=== PATIENT | female | born 1930 | race Caucasian/White ===

== ENCOUNTER 2017-08-28 21:18 | Emergency (ER) | payer MEDICARE ==
[2017-08-28 21:31] VITALS: TEMP 95.3
--- NOTE | 2017-08-28 22:20 | ED ---
General Adult HPI - General Chief complaint: Back Pain/Injury Stated complaint: back pain Time Seen by Provider: 08/28/17 21:39 Source: patient, family, RN notes reviewed Mode of arrival: wheelchair Limitations: no limitations - History of Present Illness Initial comments: 86-year-old female presents emergency department with chief complaint of back pain. Patient has had this back pain for about 2 weeks now. She states that she is originally from [place] and recently moved here yesterday. They state that they went to the doctor in [place] and they were concerned for possible kidney stone however they didn't saw a urologist who stated that there was no kidney stones or ureteral calculus and that was not the cause of her pain. She continues to have this discomfort and it seems to getting worse so they were concerned. She states that there is been no nausea vomiting she denies any chest pain. She denies any changes in urination. She states that she is not having any shortness of breath.Patient denies any recent fever, chills, shortness of breath, chest pain, abdominal pain, nausea vomiting, numbness or tingling, dysuria or hematuria, constipation or diarrhea, headaches or visual changes, or any other current symptoms. - Related Data Home Medications Medication Instructions Recorded Confirmed Acetaminophen [Tylenol Extra 500 mg PO BID PRN 08/28/17 08/28/17 Strength] Celecoxib [CeleBREX] 200 mg PO DAILY 08/28/17 08/28/17 Metoprolol Tartrate [Lopressor] 50 mg PO DAILY 08/28/17 08/28/17 PARoxetine [Paxil] 10 mg PO DAILY 08/28/17 08/28/17 Simvastatin [Zocor] 40 mg PO HS 08/28/17 08/28/17 Verapamil HCl [Verapamil ER] 120 mg PO BID 08/28/17 08/28/17 Warfarin [Coumadin] 2.5 mg PO DAILY 08/28/17 08/28/17 Previous Rx's Medication Instructions Recorded traMADol HCl [Ultram] 50 mg PO Q6H PRN #20 tab 08/29/17 Allergies Allergy/AdvReac Type Severity Reaction Status Date / Time No Known Allergies Allergy Verified 08/28/17 22:22 Review of Systems ROS Statement: Those systems with pertinent positive or pertinent negative responses have been documented in the HPI. ROS Other: All systems not noted in ROS Statement are negative. Past Medical History Past Medical History: Hyperlipidemia Additional Past Medical History / Comment(s): heart murmur History of Any Multi-Drug Resistant Organisms: None Reported Past Surgical History: Pacemaker Past Psychological History: No Psychological Hx Reported Smoking Status: Never smoker Past Alcohol Use History: Occasional Past Drug Use History: None Reported General Exam - General Exam Comments Initial Comments: General: The patient is awake and alert, in no distress, and does not appear acutely ill. Eye: Pupils are equal, round and reactive to light, extra-ocular movements are intact; there is normal conjunctiva bilaterally. No signs of icterus. Ears, nose, mouth and throat: There are moist mucous membranes and no oral lesions. Neck: The neck is supple, there is no tenderness. Cardiovascular: There is a regular rate and rhythm. No murmur, rub or gallop is appreciated. Respiratory: Lungs are clear to auscultation, respirations are non-labored, breath sounds are equal. No wheezes, stridor, rales, or rhonchi. Gastrointestinal: Soft, non-distended, non-tender abdomen without masses or organomegaly noted. There is no rebound or guarding present. No CVA tenderness. Bowel sounds are unremarkable. Back: There is no tenderness to palpation in the midline. There is no obvious deformity. No rashes noted. Musculoskeletal: Normal ROM, no tenderness, There is no pedal edema. There is no calf tenderness or swelling. Sensation intact. Pulses equal bilaterally 2+. Neurological: CN II-XII intact, There are no obvious motor or sensory deficits. Coordination appears grossly intact. Speech is normal. Skin: Skin is warm and dry and no rashes or lesions are noted. Psychiatric: Cooperative, appropriate mood & affect, normal judgment. Limitations: no limitations Course Vital Signs 08/28/17 08/28/17 08/29/17 21:24 23:46 00:05 Temperature 95.3 F L Pulse Rate 112 H 108 H 108 H Respiratory 18 18 20 Rate Blood Pressure 148/83 149/74 149/74 O2 Sat by Pulse 97 98 96 Oximetry EKG Findings - EKG Comments: EKG Findings:: Demand pacemaker, atrial fibrillation with RVR ventricular rate 106, QRS 104 Medical Decision Making - Medical Decision Making 86-year-old female presents for back pain she's had this for over 2 weeks now. They have been to a CAT scan and workup for possible stone that was negative. They state that she continues to have the pain. At this time patient's lab work and imaging has been reviewed. This time we did discuss there is a T10 compression fracture of unknown age. We discussed this could of flared up due to all the packing and moving. We also discussed the elevated INR and discuss holding the Coumadin and having her follow-up for repeat PT/INR checked. We did discuss all of the family questions and they stated they understood. We will start her on Ultram for home. At this time the patient will be discharged. - Lab Data Result diagrams: 08/28/17 22:11 08/28/17 22:11 Lab Results 08/28/17 08/28/17 08/28/17 Range/Units 22:11 22:11 22:11 WBC 6.7 (3.8-10.6) k/uL RBC 4.02 (3.80-5.40) m/uL Hgb 12.2 (11.4-16.0) gm/dL Hct 37.0 (34.0-46.0) % MCV 92.0 (80.0-100.0) fL MCH 30.4 (25.0-35.0) pg MCHC 33.0 (31.0-37.0) g/dL RDW 13.3 (11.5-15.5) % Plt Count 197 (150-450) k/uL Neutrophils % 66 % Lymphocytes % 19 % Monocytes % 9 % Eosinophils % 3 % Basophils % 1 % Neutrophils # 4.4 (1.3-7.7) k/uL Lymphocytes # 1.2 (1.0-4.8) k/uL Monocytes # 0.6 (0-1.0) k/uL Eosinophils # 0.2 (0-0.7) k/uL Basophils # 0.0 (0-0.2) k/uL PT (9.0-12.0) sec INR (<1.2) APTT (22.0-30.0) sec D-Dimer (<0.60) mg/L FEU Sodium 132 L (137-145) mmol/L Potassium 5.1 (3.5-5.1) mmol/L Chloride 95 L (98-107) mmol/L Carbon Dioxide 26 (22-30) mmol/L Anion Gap 11 mmol/L BUN 22 H (7-17) mg/dL Creatinine 1.00 (0.52-1.04) mg/dL Est GFR (MDRD) Af Amer >60 (>60 ml/min/1.73 sqM) Est GFR (MDRD) Non-Af 53 (>60 ml/min/1.73 sqM) Glucose 93 (74-99) mg/dL Calcium 9.6 (8.4-10.2) mg/dL Magnesium 1.7 (1.6-2.3) mg/dL Total Bilirubin 0.6 (0.2-1.3) mg/dL AST 39 H (14-36) U/L ALT 42 (9-52) U/L Alkaline Phosphatase 117 (38-126) U/L Total Creatine Kinase 87 (30-135) U/L CK-MB (CK-2) 1.7 (0.0-2.4) ng/mL CK-MB (CK-2) Rel Index 2.0 Troponin I <0.012 (0.000-0.034) ng/mL Total Protein 6.6 (6.3-8.2) g/dL Albumin 4.0 (3.5-5.0) g/dL Amylase 56 (30-110) U/L Lipase 251 (23-300) U/L Urine Color Urine Appearance (Clear) Urine pH (5.0-8.0) Ur Specific [place] (1.001-1.035) Urine Protein (Negative) Urine Glucose (UA) (Negative) Urine Ketones (Negative) Urine Blood (Negative) Urine Nitrite (Negative) Urine Bilirubin (Negative) Urine Urobilinogen (<2.0) mg/dL Ur Leukocyte Esterase (Negative) Urine RBC (0-5) /hpf Urine WBC (0-5) /hpf Ur Squamous Epith Cells (0-4) /hpf Hyaline Casts (0-2) /lpf 08/28/17 08/28/17 Range/Units 22:11 23:00 WBC (3.8-10.6) k/uL RBC (3.80-5.40) m/uL Hgb (11.4-16.0) gm/dL Hct (34.0-46.0) % MCV (80.0-100.0) fL MCH (25.0-35.0) pg MCHC (31.0-37.0) g/dL RDW (11.5-15.5) % Plt Count (150-450) k/uL Neutrophils % % Lymphocytes % % Monocytes % % Eosinophils % % Basophils % % Neutrophils # (1.3-7.7) k/uL Lymphocytes # (1.0-4.8) k/uL Monocytes # (0-1.0) k/uL Eosinophils # (0-0.7) k/uL Basophils # (0-0.2) k/uL PT 68.5 H (9.0-12.0) sec INR 6.7 H* (<1.2) APTT 43.3 H (22.0-30.0) sec D-Dimer 0.21 (<0.60) mg/L FEU Sodium (137-145) mmol/L Potassium (3.5-5.1) mmol/L Chloride (98-107) mmol/L Carbon Dioxide (22-30) mmol/L Anion Gap mmol/L BUN (7-17) mg/dL Creatinine (0.52-1.04) mg/dL Est GFR (MDRD) Af Amer (>60 ml/min/1.73 sqM) Est GFR (MDRD) Non-Af (>60 ml/min/1.73 sqM) Glucose (74-99) mg/dL Calcium (8.4-10.2) mg/dL Magnesium (1.6-2.3) mg/dL Total Bilirubin (0.2-1.3) mg/dL AST (14-36) U/L ALT (9-52) U/L Alkaline Phosphatase (38-126) U/L Total Creatine Kinase (30-135) U/L CK-MB (CK-2) (0.0-2.4) ng/mL CK-MB (CK-2) Rel Index Troponin I (0.000-0.034) ng/mL Total Protein (6.3-8.2) g/dL Albumin (3.5-5.0) g/dL Amylase (30-110) U/L Lipase (23-300) U/L Urine Color Light Yellow Urine Appearance Clear (Clear) Urine pH 6.0 (5.0-8.0) Ur Specific [place] 1.005 (1.001-1.035) Urine Protein Negative (Negative) Urine Glucose (UA) Negative (Negative) Urine Ketones Negative (Negative) Urine Blood Negative (Negative) Urine Nitrite Negative (Negative) Urine Bilirubin Negative (Negative) Urine Urobilinogen <2.0 (<2.0) mg/dL Ur Leukocyte Esterase Trace H (Negative) Urine RBC 1 (0-5) /hpf Urine WBC 4 (0-5) /hpf Ur Squamous Epith Cells <1 (0-4) /hpf Hyaline Casts 1 (0-2) /lpf - Radiology Data Radiology results: report reviewed, image reviewed Disposition Clinical Impression: Atrial fibrillation, Elevated INR, Wedge compression fracture of T10 vertebra, Mid back pain Disposition: HOME SELF-CARE Condition: Stable Instructions: Acute Low Back Pain (ED), Elevated INR (ED) Additional Instructions: Please use medication as discussed. Please follow up with family doctor if symptoms have not improved over the next two days. Please return to the emergency room if your symptoms increase or worsen or for any other concerns. Please hold her Coumadin for the next 2 days and have your INR be evaluated. Prescriptions: traMADol HCl [Ultram] 50 mg PO Q6H PRN #20 tab PRN Reason: Pain Referrals: Haroon Morgan MD [Primary Care Provider] - 1-2 days Time of Disposition: 00:16
[2017-08-28 22:26] LABS: Basophils % (A) 1 %; CH 30.8; CHCM 33.7; Eosinophils # (A) 0.2 k/uL (0-0.7); Eosinophils % (A) 3 %; HDW 2.62; HGB 12.2 gm/dL (11.4-16.0); Luc # (Auto) 0.22; Luc % (Auto) 3; Lymphocytes # (A) 1.2 k/uL (1.0-4.8); Lymphocytes % (A) 19 %; MCH 30.4 pg (25.0-35.0); Mean Platelet Volume 7.7; Monocytes # (A) 0.6 k/uL (0-1.0); Monocytes % (A) 9 %; Neutrophils # (A) 4.4 k/uL (1.3-7.7); Neutrophils % (A) 66 %; RBC 4.02 m/uL (3.80-5.40); RDW 13.3 % (11.5-15.5); WBC 6.7 k/uL (3.8-10.6); WBC (Perox) 6.53
[2017-08-28 22:37] LABS: ALT 42 U/L (9-52); AST 39 U/L (14-36); Alkaline Phosphatase 117 U/L (38-126); Amylase 56 U/L (30-110); Anion Gap 11 mmol/L; Blood Urea Nitrogen 22 mg/dL (7-17); Calcium 9.6 mg/dL (8.4-10.2); Carbon Dioxide 26 mmol/L (22-30); Chloride 95 mmol/L (98-107); Glucose 93 mg/dL (74-99); Magnesium 1.7 mg/dL (1.6-2.3); Non-African American GFR(MDRD) 53 (>60 ml/min/1.73 sqM); Potassium 5.1 mmol/L (3.5-5.1); Sodium 132 mmol/L (137-145); Total Bilirubin 0.6 mg/dL (0.2-1.3); Total Protein 6.6 g/dL (6.3-8.2)
[2017-08-28 22:41] LABS: Partial Thromboplastin Time 43.3 sec (22.0-30.0)
[2017-08-28 22:45] LABS: Prothrombin Time 68.5 sec (9.0-12.0)
[2017-08-28 22:46] LABS: Creatine Kinase 87 U/L (30-135)
[2017-08-28 22:51] LABS: INR 6.7 (<1.2)
[2017-08-28] MEDS ORDERED: RX INFO: IV CONTRAST WAS GIVEN 1 EACH MISC MISCELLANE PRN (22:52)
[2017-08-28] MEDS ORDERED: SODIUM CHLORIDE 0.9% 500 ML IV STA (22:52)
[2017-08-28 23:00] LABS: Creatine Kinase MB 1.7 ng/mL (0.0-2.4); Troponin I <0.012 ng/mL (0.000-0.034)
[2017-08-28 23:18] LABS: Appearance,Urine Clear (Clear); Bilirubin,Urine Negative (Negative); Glucose,Urine (UA) Negative (Negative); Ketones,Urine Negative (Negative); Leukocyte Esterase,Urine Trace (Negative); Nitrite,Urine Negative (Negative); Particle Count 408; Protein,Urine Negative (Negative); RBC,Urine 1 /hpf (0-5); Specific Gravity,Urine 1.005 (1.001-1.035); Squamous Epithelial Cell,Urine <1 /hpf (0-4); UA Billing (MACRO vs. MICRO) MICRO; Urobilinogen,Urine <2.0 mg/dL (<2.0); WBC,Urine 4 /hpf (0-5)
--- NOTE | 2017-08-28 23:30 | XR ---
EXAMINATION TYPE: XR chest 2V DATE OF EXAM: 08/28/2017 COMPARISON: NONE HISTORY: Chest pain TECHNIQUE: Frontal and lateral views of the chest are obtained. FINDINGS: Heart is enlarged. There is no heart failure. There is some coarsening of interstitial mar kings. There is slight blunting of right costophrenic angle. Thoracic aorta is atheromatous. There is left axillary pacemaker with the lead tip in the right ventricle. There is osteopenia with 30% compr ession deformity of T10. There is 20% wedging of T9. IMPRESSION: Mild cardiomegaly. Small right pleural effusion. No heart failure seen. No pulmonary con solidation.
--- NOTE | 2017-08-28 23:37 | CT ---
EXAMINATION TYPE: CT angio thoracic/abd aorta DATE OF EXAM: 08/28/2017 COMPARISON: NONE HISTORY: NO prior, mid thoracic back pain that radiates into abdomen, history of pacemaker, and breas t CA with left lumpectomy [address] DLP: 540.80 mGycm. Automated Exposure Control for Dose Reduction was Utilized. CONTRAST: CT scan of the thorax, abdomen and pelvis is performed with IV Contrast, patient injected with 80 mL of Visipaque 320. FINDINGS: Thoracic aorta is atheromatous. I see no filling defects in the pulmonary arteries. Ascending aorta m easures 3.7 cm. There is no sign of aortic dissection. Abdominal aorta and common iliac arteries are patent. Internal and external iliac arteries are patent. There is bilateral patency of the renal arteries. Kidneys have fairly normal size. There is small rig ht pleural effusion and pleural reaction. There is patency of the celiac artery and the superior mese nteric artery. There is probably more than 75% stenosis at the origin of the superior mesenteric kristie ry. There is 25% compression deformity of T10 vertebra. CONCLUSION: Atherosclerotic vascular disease.. Ascending aorta measures up to 3.7 cm. No evidence of aortic disse ction. 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 There is probably 50% stenosis at the origins of both renal arteries. No evidence of pulmonary embolism. T10 compression fracture is probably old. Cardiomegaly. Mild pleural reaction and fluid at the right lung base.
[2017-08-28 23:47] VITALS: BP 149/74; PULSE 108
[2017-08-29 00:06] VITALS: RESP 20
[2017-08-29] MEDS ORDERED: traMADol 50 MG STARTER PACK 3 TAB BTL PO STA (00:16)
== END 2017-08-29 00:44 | disposition home or self-care (01) ==
LOC: EC 21:18
DX: M48.54XA Collapsed vertebra, not elsewhere classified, thoracic region, initial encounter for fracture (principal); I48.91 Unspecified atrial fibrillation; R79.1 Abnormal coagulation profile; E78.5 Hyperlipidemia, unspecified; Z79.01 Long term (current) use of anticoagulants; Z79.899 Other long term (current) drug therapy; Z95.0 Presence of cardiac pacemaker
CPT/HCPCS: 36415; 93005; 85379; 80053; 82150; 82550; 82553; 83690; 83735; 84484; 85025; 85610; 85730; 81001; 71020; 75635; 71275; 99284; 96360; Q9967

== ENCOUNTER → 2018-04-27 | Outpatient (CLI) | payer MEDICARE ==
--- NOTE | 2018-04-27 15:18 | XR ---
EXAMINATION TYPE: XR chest 2V DATE OF EXAM: 04/27/2018 COMPARISON: CTA aorta and chest x-ray August 28, 2017. HISTORY: Shortness of breath. TECHNIQUE: Frontal and lateral views of the chest are obtained. FINDINGS: There is chronic emphysematous change without suspicious new focal air space opacity, pleu ral effusion, or pneumothorax seen. The cardiac silhouette size remains enlarged with single lead pa cemaker and atherosclerotic aorta. The osseous structures are demineralized. There is exaggerated t horacic kyphosis with mild to moderate compression fractures in the mid to lower thoracic spine redem onstrated, suspect some interval progression from prior study at peak of curvature IMPRESSION: Chronic emphysematous change and cardiomegaly without acute pulmonary process. Interval no but suspected chronic compression fractures.
== END | disposition home or self-care (01) ==
LOC: RADXRMAIN 14:52
PROVIDERS: ATTEND Internal Medicine Geriatric Medicine
DX: J43.9 Emphysema, unspecified (principal); I51.7 Cardiomegaly
CPT/HCPCS: 71046

== ENCOUNTER 2018-08-10 10:15 | Inpatient (IN) | payer MEDICARE ==
[2018-08-10] MEDS ORDERED: MORPHINE SULFATE 4 MG/ML SYRINGE IM STA (10:58)
--- NOTE | 2018-08-10 11:03 | ED ---
General Adult HPI - General Chief complaint: Fall Stated complaint: fall Time Seen by Provider: 08/10/18 10:35 Source: patient, family, RN notes reviewed Mode of arrival: wheelchair Limitations: physical limitation - History of Present Illness Initial comments: Patient is a pleasant 87-year-old female presenting to the emergency department from fall. Patient was sitting on the side of the bed when she slipped off and landed on her right side. Patient has discomfort the right leg. Discomfort increases with movement. Patient was able to ambulate with pain. No other injury. Patient denies any head injury or loss of consciousness. No neck or back pain. No chest pain or dyspnea. - Related Data Home Medications Medication Instructions Recorded Confirmed PARoxetine [Paxil] 10 mg PO DAILY 08/28/17 08/10/18 Simvastatin [Zocor] 40 mg PO HS 08/28/17 08/10/18 Verapamil HCl [Verapamil ER] 120 mg PO BID 08/28/17 08/10/18 Warfarin [Coumadin] 2.5 mg PO MOTUTHSA 08/28/17 08/10/18 Ferrous Sulfate, Dried [Slow 159 mg PO DAILY@1200 08/10/18 08/10/18 Release Iron] Furosemide [Lasix] 20 mg PO DAILY 08/10/18 08/10/18 Warfarin [Coumadin] 1.25 mg PO SUWEFR 08/10/18 08/10/18 Allergies Allergy/AdvReac Type Severity Reaction Status Date / Time No Known Allergies Allergy Verified 08/10/18 10:50 Review of Systems ROS Statement: Those systems with pertinent positive or pertinent negative responses have been documented in the HPI. ROS Other: All systems not noted in ROS Statement are negative. Constitutional: Denies: fever Eyes: Denies: eye pain ENT: Denies: ear pain Respiratory: Denies: cough Cardiovascular: Denies: chest pain Endocrine: Denies: fatigue Gastrointestinal: Denies: abdominal pain Genitourinary: Denies: dysuria Musculoskeletal: Denies: back pain Skin: Denies: rash Neurological: Denies: headache, weakness, confusion Past Medical History Past Medical History: Hyperlipidemia Additional Past Medical History / Comment(s): heart murmur, raynaulds History of Any Multi-Drug Resistant Organisms: None Reported Past Surgical History: Pacemaker Past Psychological History: No Psychological Hx Reported Smoking Status: Never smoker Past Alcohol Use History: Occasional Past Drug Use History: None Reported General Exam Limitations: physical limitation General appearance: alert, in no apparent distress Head exam: Present: atraumatic Eye exam: Present: normal appearance, PERRL ENT exam: Present: normal oropharynx Neck exam: Present: normal inspection. Absent: tenderness Respiratory exam: Present: normal lung sounds bilaterally Cardiovascular Exam: Present: regular rate, normal rhythm Expanded Peripheral pulses: 2+: Radial (R), Radial (L), Dorsalis Pedis (R), Dorsalis Pedis (L) GI/Abdominal exam: Present: soft. Absent: tenderness Extremities exam: Present: tenderness (Tenderness right lateral hip, mild), other (Limited range of motion at the right hip secondary to pain. Distally the extremity is neurovascular intact.) Neurological exam: Present: alert, CN II-XII intact. Absent: motor sensory deficit Psychiatric exam: Present: normal affect, normal mood Skin exam: Present: normal color Course Vital Signs 08/10/18 10:23 Temperature 97.9 F Pulse Rate 90 Respiratory 18 Rate Blood Pressure 144/71 O2 Sat by Pulse 96 Oximetry EKG Findings - EKG Comments: EKG Findings:: Normal sinus rhythm 88. WI 160. QRS 70. QT 394. QTC 476. Left axis. Normal QRS. No acute ST change. Medical Decision Making - Medical Decision Making Patient reevaluated. Patient and family updated. Case was discussed with lulú Mahmood with orthopedics, who will admit for Dr. Reed. - Radiology Data Radiology results: image reviewed (X-ray of the right hip and pelvis does show subcapital Right hip fracture) Disposition Clinical Impression: Closed right hip fracture Disposition: ADMITTED IP TO THIS HOSP Is patient prescribed a controlled substance at d/c from ED?: No Referrals: Haroon Morgan MD [Primary Care Provider] - 1-2 days Decision Time: 12:24
--- NOTE | 2018-08-10 11:40 | XR ---
EXAMINATION TYPE: XR Hip RT and AP Pelvis DATE OF EXAM: 08/10/2018 COMPARISON: NONE HISTORY: Pelvic pain after fall. TECHNIQUE: A single AP view of the pelvis is obtained. Two views of the right hip are obtained. FINDINGS: There is a subcapital impaction with approximately 7 mm of lateral cortical overlap. This a ppears noncomminuted and nonintra-articular. No additional fracture of the pelvis is identified. Ther e is diffuse osseous demineralization. Sacroiliac joints appear symmetric. Mild femoral acetabular ar thropathy is seen bilaterally. Fracture of the right femoral neck. Midline pelvic density could relat e to a degenerative uterine leiomyoma. IMPRESSION: Subcapital right hip noncomminuted, nonintra-articular impaction fracture.
[2018-08-10] MEDS ORDERED: NALOXONE 0.4 MG/ML 1 ML VIAL IV PRN (12:24)
[2018-08-10] MEDS ORDERED: ACETAMINOPHEN TAB 325 MG TAB PO PRN (12:24)
[2018-08-10] MEDS ORDERED: MORPHINE SULFATE 4 MG/ML SYRINGE IV PRN (12:24)
--- NOTE | 2018-08-10 12:41 | XR ---
EXAMINATION TYPE: XR chest 1V portable DATE OF EXAM: 08/10/2018 COMPARISON: Prior chest x-ray 04/27/2018 HISTORY: Abnormal chest x-ray, pain, hip fracture TECHNIQUE: Single frontal view of the chest is obtained. FINDINGS: There is an underlying scoliosis. Pacemaker is present in the left pectoral region, there is a lead in the right ventricle. Heart is enlarged. No evident pneumothorax or pleural effusion. Pul monary artery appears prominently, correlate for possible pulmonary artery hypertension. No evident p neumonia. Interstitium is prominent. Increased lung volumes could be indicative of underlying COPD. T he aorta is dense. IMPRESSION: Cardiomegaly, scoliosis, correlate for possible pulmonary artery hypertension.
[2018-08-10 13:08] LABS: Anisocytosis Moderate; Basophils % (A) 0 %; Eosinophils % (A) 0 %; HCT 37.4 % (34.0-46.0); HGB 11.7 gm/dL (11.4-16.0); Hypochromasia Moderate; Lymphocytes # (A) 0.9 k/uL (1.0-4.8); Lymphocytes % (A) 10 %; MCH 27.5 pg (25.0-35.0); MCHC 31.4 g/dL (31.0-37.0); MCV 87.7 fL (80.0-100.0); Mean Platelet Volume 7.9; Monocytes # (A) 0.3 k/uL (0-1.0); Monocytes % (A) 3 %; Neutrophils # (A) 7.6 k/uL (1.3-7.7); Neutrophils % (A) 85 %; Platelet Count 200 k/uL (150-450); RBC 4.27 m/uL (3.80-5.40); RDW 20.4 % (11.5-15.5); WBC 8.9 k/uL (3.8-10.6)
[2018-08-10 13:17] LABS: Calcium 9.1 mg/dL (8.4-10.2); Potassium 4.3 mmol/L (3.5-5.1); Total Bilirubin 0.7 mg/dL (0.2-1.3); Total Protein 6.5 g/dL (6.3-8.2)
[2018-08-10 13:43] LABS: INR 2.7 (<1.2); Partial Thromboplastin Time 29.5 sec (22.0-30.0)
--- NOTE | 2018-08-10 13:56 | P.CONS ---
History of Present Illness - Reason for Consult Consult date: 08/10/18 medical clearance - Chief Complaint right hip pain - History of Present Illness 87 years old female patient of Dr. Morgan, Dr. Bryant was seen him once or twice in the clinic with past medical history of atrial fibrillation status post pacemaker on Coumadin, hypertension, history of chronic iron deficiency anemia with the borderline hyperglycemia, hypercholesterolemia, diastolic heart failur, TIA 15 years ago presents after a fall this morning when she was coming off the bed. Patient complains of dizziness but denies any palpitation, chest pain, or shortness of breath. She denies any previous falls. Is independent lives by herself. She was seen by Dr. Morgan in April for shortness of breath and was started on low dose of Lasix for concern of diastolic heart failure. Patient also seen by Dr. Bryant in June and gets echocardiogram every 6 month. Patient does have history of osteoporosis according to the patient no documented DEXA scan in chart. X-ray of the hip suggest a subcapital right hip non-communicated [id number] impaction fracture. Labs done in the ER suggested hemoglobin of 11.7, creatinine 1.03 glucose borderline high 114. No coagulating factors ordered. PT/INR ordered. Internal medicine team consulted for preop clearance. Patient denies any chest pain or shortness of breath. She is independent and ambulates without the use of cane or walker. Review of Systems Constitutional: Denies chills, Denies fever, Denies lethargy, Denies malaise, Denies poor appetite, Denies weakness, Denies weight loss Eyes: denies decreased vision, denies diplopia, denies discharge, denies pain Ears: deny: decreased hearing Ears, nose, mouth and throat: Denies dental pain, Denies headache, Denies nasal discharge, Denies nose pain Cardiovascular: Denies chest pain, Denies decreased exercise tolerance, Denies edema, Denies high blood pressure, Denies irregular heart beat, Denies palpitations, Denies paroxysmal nocturnal dyspnea, Denies rapid heart beat, Denies shortness of breath Respiratory: Denies congestion, Denies cough, Denies cough with sputum, Denies dyspnea, Denies home oxygen, Denies wheezing Gastrointestinal: Denies abdominal pain, Denies change in bowel habits, Denies coffee ground emesis, Denies early satiety, Denies excessive gas, Denies heartburn, Denies hematemesis, Denies hematochezia, Denies loss of appetite, Denies nausea, Denies vomiting Genitourinary: Denies dysuria, Denies flank pain, Denies kidney stones, Denies menorrhagia, Denies urgency, Denies urinary frequency Musculoskeletal: Endorses gait dysfunction, endorses limitation of motion, Denies morning stiffness, Denies muscle cramps positive for pain in the right hip on movement Integumentary: Denies rash, Denies wounds, Denies brittle nails, Denies change in hair/nails, Denies darkening of skin Neurological: Denies balance difficulties, Denies change in speech, Denies double vision, Denies gait dysfunction, Denies loss of vision, Denies motor disturbance, Denies numbness, Denies paralysis, Denies paresthesias, Denies seizures Psychiatric: Denies anxiety, Denies depression Endocrine: Denies excessive sweating, Denies excessive thirst, Denies high blood sugars, Denies palpitations Hematologic/Lymphatic: Denies easy bruising, Denies lymphadenopathy Past Medical History Past Medical History: Atrial Fibrillation, Heart Failure, CVA/TIA, Hyperlipidemia Additional Past Medical History / Comment(s): Cardiac murmur, bronchitis, iron deficiency anemia, TIA, L breast cancer with surgery/chemo/radiation, bilateral raynauld's disease, bronchitis. History of Any Multi-Drug Resistant Organisms: None Reported Past Surgical History: Pacemaker Additional Past Surgical History / Comment(s): L mastectomy with lymph nodes removed, ectopic with 1 fallopian tube removed, bilateral cataract removals/lens implants. Past Anesthesia/Blood Transfusion Reactions: No Reported Reaction Additional Past Anesthesia/Blood Transfusion Reaction / Comm: Pt states she received blood with her ectopic without reaction. Type of Cardiac Device: Permanent Pacemaker Device Placement Date:: 2015 in [place] Smoking Status: Former smoker - Past Family History Father Family Medical History: Coronary Artery Disease (CAD), Hypertension Additional Family Medical History / Comment(s): heart attack in 80's Mother Family Medical History: Dementia Additional Family Medical History / Comment(s): Mother had gallstones.noly child , 2 daughter an d son with no medical problems Medications and Allergies Home Medications Medication Instructions Recorded Confirmed Type PARoxetine [Paxil] 10 mg PO DAILY 08/28/17 08/10/18 History Simvastatin [Zocor] 40 mg PO HS 08/28/17 08/10/18 History Verapamil HCl [Verapamil ER] 120 mg PO BID 08/28/17 08/10/18 History Warfarin [Coumadin] 2.5 mg PO MOTUTHSA 08/28/17 08/10/18 History Ferrous Sulfate, Dried [Slow 159 mg PO DAILY@1200 08/10/18 08/10/18 History Release Iron] Furosemide [Lasix] 20 mg PO DAILY 08/10/18 08/10/18 History Warfarin [Coumadin] 1.25 mg PO SUWEFR 08/10/18 08/10/18 History Allergies Allergy/AdvReac Type Severity Reaction Status Date / Time No Known Allergies Allergy Verified 08/10/18 10:50 Physical Exam Vitals: Vital Signs Temp Pulse Resp BP Pulse Ox 08/10/18 13:00 97.8 F 73 17 121/67 95 08/10/18 12:30 80 20 134/70 94 L 08/10/18 12:00 72 17 123/65 95 08/10/18 11:30 76 23 117/64 96 08/10/18 10:28 91 L 08/10/18 10:23 97.9 F 90 18 144/71 96 Intake and Output 08/09/18 08/10/18 08/10/18 22:59 06:59 14:59 Other: Weight 43.091 kg - Constitutional General appearance: cooperative, no acute distress, obese - EENT Eyes: anicteric sclerae, PERRLA, normal appearance ENT: hearing grossly normal - Neck Neck: no lymphadenopathy, normal ROM, no other, no rigidity, no stridor, no thyromegaly - Respiratory Respiratory: bilateral: CTA, negative: diminished, dullness, rales, rhonchi - Cardiovascular Rhythm: regular Heart sounds: normal: S1, S2 Abnormal Heart Sounds: no systolic murmur, 2+ diastolic murmur, no rub, no S3 Gallop, no S4 Gallop - Gastrointestinal General gastrointestinal: normal bowel sounds, soft - Integumentary Integumentary: no rash - Neurologic Neurologic: CNII-XII intact - Musculoskeletal Musculoskeletal: Significant pain on movement of the right hip, no joint effusion or sensory deficits seen - Psychiatric Psychiatric: A&O x's 3, appropriate affect Results CBC & Chem 7: 08/10/18 12:56 08/10/18 12:56 Labs: Abnormal Lab Results - Last 24 Hours (Table) 08/10/18 Range/Units 12:56 BUN 19 H (7-17) mg/dL Glucose 114 H (74-99) mg/dL AST 39 H (14-36) U/L Assessment and Plan Plan: #1 right hip non-communicated [id number] impaction fracture of the right femoral neck. Pain control with morphine, Tylenol. Possible underlying osteoporosis need DEXA scan on discharge. Incentive spirometer for pulmonary prophylaxis. Recent echocardiogram did not show any sign of pulmonary artery hypertension. Chest x-ray suggestive of prominent pulmonary artery with possible COPD. On the function tests to be done as outpatient. EKG normal sinus rhythm and no Q waves identified. Patient is at least 4 MET. Patient is saturating well on room air. Patient has less than 1% cardiac risk for any major cardiac event including sudden . Hold Coumadin INR ordered. One dose of vitamin K can be given to reverse INR if elevated for surgery tomorrow. Patient is medically cleared for surgery #2 history of atrial fibrillation status post pacemaker currently on anticoagulation with Coumadin. INR ordered stat. If elevated will give a dose of vitamin K to reverse. Patient has a chads risk of 4. History of TIA 15 years ago, does not need any bridging with heparin prior to surgery. Risk of thromboembolism is low compared to bleeding risk. Continue verapamil 120 mg twice a day #3 history of shortness of breath on exertion with concern of diastolic heart failure on echocardiogram . Cardiology consult as patient is known to Dr. Bryant Patient need outpatient PFTs to assess for COPD as suggested by chest x- ray. Continue Lasix 20 mg by mouth daily for now. #4 chronic iron deficiency anemia continue ferrous sulfate 159 mg by mouth daily #5 GI prophylaxis with Pepcid 20 mg by mouth daily CODE STATUS DO NOT RESUSCITATE Thank you for the consult. Patient is medically cleared to undergo surgery. I' ll be happy to assist in any medical needs while patient is in the hospital.
[2018-08-10] MEDS: SODIUM CHLORIDE 0.9% 1,000 ML IV SCH (15:48)
[2018-08-11] MEDS: SODIUM CHLORIDE 0.9% 1,000 ML IV SCH (04:08)
[2018-08-11 07:46] LABS: INR 3.1 (<1.2); Prothrombin Time 28.2 sec (9.0-12.0)
--- NOTE | 2018-08-11 09:39 | P.HPOR ---
History of Present Illness H&P Date: 08/11/18 This is an 87-year-old female who sustained a fracture of the right hip after a fall on 08/10/2018. Patient states that she was sitting on the side of her bed and slipped off the bed. Patient denies any head injury or any loss of consciousness. Patient states that she was able to walk before this injury and only uses a walker occasionally due to shortness of breath with exertion. Patient states that she lives with her daughter. Patient is on Coumadin for atrial fibrillation and her past medical history is also significant for iron deficiency anemia, exertional shortness of breath and breast cancer with mastectomy. Patient denies any fever/chills, numbness, weakness, tingling, abdominal pain, shortness of breath or chest pain. Review of Systems See HPI. Past Medical History Past Medical History: Atrial Fibrillation, Heart Failure, CVA/TIA, Hyperlipidemia Additional Past Medical History / Comment(s): Cardiac murmur, bronchitis, iron deficiency anemia, TIA, L breast cancer with surgery/chemo/radiation, bilateral raynauld's disease, bronchitis. History of Any Multi-Drug Resistant Organisms: None Reported Past Surgical History: Pacemaker Additional Past Surgical History / Comment(s): L mastectomy with lymph nodes removed, ectopic with 1 fallopian tube removed, bilateral cataract removals/lens implants. Past Anesthesia/Blood Transfusion Reactions: No Reported Reaction Additional Past Anesthesia/Blood Transfusion Reaction / Comment(s): Pt states she received blood with her ectopic without reaction. Type of Cardiac Device: Permanent Pacemaker Device Placement Date:: 2015 in [place] Smoking Status: Former smoker - Past Family History Father Family Medical History: Coronary Artery Disease (CAD), Hypertension Additional Family Medical History / Comment(s): heart attack in 80's Mother Family Medical History: Dementia Additional Family Medical History / Comment(s): Mother had gallstones.noly child , 2 daughter an d son with no medical problems Medications and Allergies Home Medications Medication Instructions Recorded Confirmed Type PARoxetine [Paxil] 10 mg PO DAILY 08/28/17 08/10/18 History Simvastatin [Zocor] 40 mg PO HS 08/28/17 08/10/18 History Verapamil HCl [Verapamil ER] 120 mg PO BID 08/28/17 08/10/18 History Warfarin [Coumadin] 2.5 mg PO MOTUTHSA 08/28/17 08/10/18 History Ferrous Sulfate, Dried [Slow 159 mg PO DAILY@1200 08/10/18 08/10/18 History Release Iron] Furosemide [Lasix] 20 mg PO DAILY 08/10/18 08/10/18 History Warfarin [Coumadin] 1.25 mg PO SUWEFR 08/10/18 08/10/18 History Allergies Allergy/AdvReac Type Severity Reaction Status Date / Time No Known Allergies Allergy Verified 08/10/18 10:50 Physical Examination On exam patient is lying comfortably in bed. Patient is alert and oriented 3 and is in no acute distress. There is pain over the right hip. Patient has limited range of motion of the right lower extremity. Sensation is intact. Patient has good foot and ankle motion bilaterally. Neurovascular status and circulatory status are intact. Exams of the head, neck, bilateral upper extremities and left lower extremity are within normal limits. Results X-rays of the right hip and pelvis show a minimally displaced subcapital fracture of the right femur. - Labs Labs: Abnormal Lab Results - Last 24 Hours (Table) 08/10/18 08/10/18 08/10/18 Range/Units 12:56 12:56 12:56 RDW 20.4 H (11.5-15.5) % Lymphocytes # 0.9 L (1.0-4.8) k/uL PT 24.0 H (9.0-12.0) sec INR 2.7 H (<1.2) BUN 19 H (7-17) mg/dL Glucose 114 H (74-99) mg/dL AST 39 H (14-36) U/L 08/11/18 Range/Units 06:50 RDW (11.5-15.5) % Lymphocytes # (1.0-4.8) k/uL PT 28.2 H (9.0-12.0) sec INR 3.1 H (<1.2) BUN (7-17) mg/dL Glucose (74-99) mg/dL AST (14-36) U/L H & H 08/10/18 Range/Units 12:56 Hgb 11.7 (11.4-16.0) gm/dL Hct 37.4 (34.0-46.0) % Coagulation 08/10/18 08/11/18 Range/Units 12:56 06:50 INR 2.7 H 3.1 H (<1.2) Result Diagrams: 08/10/18 12:56 08/10/18 12:56 Assessment and Plan Assessment: Atrial fibrillation Iron deficiency anemia Exertional shortness of breath. History of breast cancer. (1) Subcapital fracture of right hip Current Visit: Yes Status: Acute Code(s): S72.011A - UNSP INTRACAPSULAR FRACTURE OF RIGHT FEMUR, INIT FOR CLOS FX SNOMED Code(s): 371468862 (2) Closed right hip fracture Current Visit: Yes Status: Acute Code(s): S72.001A - FRACTURE OF UNSP PART OF NECK OF RIGHT FEMUR, INIT SNOMED Code(s): 971332063 Plan: 1. Patient is to be nonweightbearing to the right lower extremity. 2. Rest and ice the right hip. 3. Patient is to be NPO after midnight. 4. Appreciate input from medicine. 5. Coumadin is being held. Patient received vitamin K. 6. Continue pain control. 7. Patient's PT/INR is 3.1 today. This is too high for surgery today. We will plan on right hip hemiarthroplasty tomorrow if PT/INR is within an acceptable range. Consent pending.
[2018-08-11] MEDS: PARoxetine 10 MG TAB PO SCH (10:42)
[2018-08-11] MEDS: VERAPAMIL SR 120 MG TABLET.ER PO SCH ×2 (10:42→20:37)
[2018-08-11] MEDS ORDERED: FERROUS SULFATE DRIED 159 MG PO SCH (12:00)
[2018-08-11] MEDS ORDERED: PHYTONADIONE 5 MG in SODIUM CHLORIDE 0.9% 50 ML IVPB STA (13:09)
[2018-08-11 14:20] LABS: Appearance,Urine Cloudy (Clear); Bacteria,Urine Rare /hpf; Bilirubin,Urine Negative (Negative); Blood,Urine Moderate (Negative); Color,Urine Yellow; Glucose,Urine (UA) Negative (Negative); Ketones,Urine Negative (Negative); Leukocyte Esterase,Urine Large (Negative); Mucus,Urine Rare /hpf; Nitrite,Urine Negative (Negative); Protein,Urine Trace (Negative); RBC,Urine 78 /hpf (0-5); Specific Gravity,Urine 1.015 (1.001-1.035); Squamous Epithelial Cell,Urine <1 /hpf (0-4)
[2018-08-11] MEDS ORDERED: VERAPAMIL SR 120 MG TABLET.ER PO STA (15:38)
[2018-08-11] MEDS ORDERED: DILTIAZEM DRIP BOLUS FROM BAG 1 MG SOLN IV ONE (16:31)
[2018-08-11] MEDS: DILTIAZEM 50 MG in SODIUM CHLORIDE 0.9% 40 ML IV SCH ×2 (17:59→22:29)
[2018-08-11] MEDS: ATORVASTATIN 20 MG TAB PO SCH (20:37)
[2018-08-11 21:53] LABS: INR 2.7 (<1.2); Partial Thromboplastin Time 31.5 sec (22.0-30.0); Prothrombin Time 23.8 sec (9.0-12.0)
[2018-08-11] MEDS ORDERED: PHYTONADIONE ORAL 5 MG/5 ML ORAL.SYRG PO STA (22:18)
[2018-08-12 06:18] LABS: Anisocytosis Moderate; Basophils % (A) 0 %; Eosinophils # (A) 0.2 k/uL (0-0.7); Eosinophils % (A) 3 %; HCT 34.6 % (34.0-46.0); Hypochromasia Slight; Lymphocytes # (A) 2.1 k/uL (1.0-4.8); Lymphocytes % (A) 26 %; MCH 27.6 pg (25.0-35.0); MCHC 31.8 g/dL (31.0-37.0); Monocytes # (A) 0.5 k/uL (0-1.0); Monocytes % (A) 6 %; Neutrophils % (A) 62 %; Platelet Count 164 k/uL (150-450); RBC 3.98 m/uL (3.80-5.40); RDW 20.6 % (11.5-15.5)
[2018-08-12 06:22] LABS: INR 1.8 (<1.2); Prothrombin Time 16.8 sec (9.0-12.0)
[2018-08-12 06:35] LABS: Calcium 8.5 mg/dL (8.4-10.2); Magnesium 1.9 mg/dL (1.6-2.3); Potassium 4.2 mmol/L (3.5-5.1)
[2018-08-12] MEDS: VERAPAMIL SR 120 MG TABLET.ER PO SCH ×2 (08:39→20:57)
--- NOTE | 2018-08-12 08:39 | P.CRDCN ---
History of Present Illness Consult date: 08/12/18 Requesting physician: Duncan Reed Consult reason: atrial fibrillation Chief complaint: Fall History of present illness: This is a pleasant 87-year-old female who follows regularly with Dr. Bryant in the office. She has known history of paroxysmal atrial fibrillation, and is on Coumadin for anticoagulation. History also of hyperlipidemia, hypertension, family history of premature coronary artery disease, prior nicotine dependence, sick sinus syndrome with prior pacemaker implantation she presented to the hospital on this occasion after experiencing a fall at home. She states that she was getting up out of her bed, felt mildly dizzy and fell onto the floor. She denies any syncope. She called out to her daughter, and was brought to the hospital for further evaluation. Right hip and pelvis x-ray revealed subcapital right hip noncomminuted impaction fracture. Chest x-ray shows cardiomegaly, scoliosis, possible pulmonary arterial hypertension. Blood pressure on arrival 140/70 with a heart rate in the 90s, temperature 97.9, 96% on room air. White blood cell count 8.0, hemoglobin 11, platelet count 164. INR this morning 1.8. Sodium 133, potassium 4.2, BUN 17, creatinine 0.9. EKG on admission here showed a normal sinus rhythm, subsequently through the night patient went into atrial fibrillation with rapid ventricular response and continues to be in A. fib this morning. She is on a Cardizem drip 5 mg per hour. At the time of my examination this morning, patient is resting comfortably in bed, she denies any severe pain in her hips this morning, she has been given pain medication. She denies any recent angina, no recent syncopal episodes. Past Medical History Past Medical History: Atrial Fibrillation, Heart Failure, CVA/TIA, Hyperlipidemia Additional Past Medical History / Comment(s): Cardiac murmur, bronchitis, iron deficiency anemia, TIA, L breast cancer with surgery/chemo/radiation, bilateral raynauld's disease, bronchitis. History of Any Multi-Drug Resistant Organisms: None Reported Past Surgical History: Pacemaker Additional Past Surgical History / Comment(s): L mastectomy with lymph nodes removed, ectopic with 1 fallopian tube removed, bilateral cataract removals/lens implants. Past Anesthesia/Blood Transfusion Reactions: No Reported Reaction Additional Past Anesthesia/Blood Transfusion Reaction / Comment(s): Pt states she received blood with her ectopic without reaction. Type of Cardiac Device: Permanent Pacemaker Device Placement Date:: 2015 in [place] Smoking Status: Former smoker - Past Family History Father Family Medical History: Coronary Artery Disease (CAD), Hypertension Additional Family Medical History / Comment(s): heart attack in 80's Mother Family Medical History: Dementia Additional Family Medical History / Comment(s): Mother had gallstones.noly child , 2 daughter an d son with no medical problems Medications and Allergies Home Medications Medication Instructions Recorded Confirmed Type PARoxetine [Paxil] 10 mg PO DAILY 08/28/17 08/10/18 History Simvastatin [Zocor] 40 mg PO HS 08/28/17 08/10/18 History Verapamil HCl [Verapamil ER] 120 mg PO BID 08/28/17 08/10/18 History Warfarin [Coumadin] 2.5 mg PO MOTUTHSA 08/28/17 08/10/18 History Ferrous Sulfate, Dried [Slow 159 mg PO DAILY@1200 08/10/18 08/10/18 History Release Iron] Furosemide [Lasix] 20 mg PO DAILY 08/10/18 08/10/18 History Warfarin [Coumadin] 1.25 mg PO SUWEFR 08/10/18 08/10/18 History Allergies Allergy/AdvReac Type Severity Reaction Status Date / Time No Known Allergies Allergy Verified 08/10/18 10:50 Physical Exam Vitals: Vital Signs Temp Pulse Pulse Resp BP Pulse Ox 08/12/18 04:00 98.6 F 116 H 17 101/56 08/12/18 00:00 98.2 F 95 18 106/61 08/11/18 20:00 98.3 F 138 H 115 H 19 124/57 08/11/18 18:08 98.1 F 146 H 20 115/60 92 L 08/11/18 16:00 138 H 138 H 17 08/11/18 11:55 97.7 F 90 17 110/69 95 Intake and Output 08/11/18 08/12/18 08/12/18 22:59 06:59 14:59 Intake Total 269.5 1120 Output Total 500 400 Balance -230.5 720 Intake: Intake, IV Titration 47.5 220 Amount Diltiazem 50 mg In Sodium 27.5 Chloride 0.9% 40 ml @ 5 MG/HR 5 mls/hr IV .Q10H [facility] Rx#:[id number] Sodium Chloride 0.9% 1, 20 220 000 ml @ 20 mls/hr IV . Q24H [facility] Rx#:[id number] Oral 222 900 Output: Urine 500 400 Other: Voiding Method Indwelling Catheter Indwelling Catheter Weight 43 kg PHYSICAL EXAMINATION: GENERAL: 87-year-old female in no acute distress at the time of my examination HEENT: Head is atraumatic, normocephalic. Pupils equal, round. Sclera anicteric. Conjunctiva are clear. Mucous membranes of the mouth are moist. Neck is supple. There is no elevated jugular venous pressure. No carotid bruit is heard. HEART EXAMINATION: Heart S1 and S2 irregularly irregular a systolic murmur is heard. CHEST EXAMINATION: Lungs are clear to auscultation and precussion. No chest wall tenderness is noted on palpation or with deep breathing. ABDOMEN: Soft, nontender. Bowel sounds are heard. No organomegaly noted. EXTREMITIES: 2+ peripheral pulses with no evidence of peripheral edema and no calf tenderness noted. NEUROLOGIC patient is awake, alert and oriented 3 . . Results 08/12/18 05:16 08/12/18 05:16 Coagulation 08/11/18 08/12/18 Range/Units 21:27 05:16 PT 23.8 H 16.8 H (9.0-12.0) sec APTT 31.5 H (22.0-30.0) sec CBC 08/12/18 Range/Units 05:16 WBC 8.0 (3.8-10.6) k/uL RBC 3.98 (3.80-5.40) m/uL Hgb 11.0 L (11.4-16.0) gm/dL Hct 34.6 (34.0-46.0) % Plt Count 164 (150-450) k/uL Comprehensive Metabolic Panel 08/12/18 Range/Units 05:16 Sodium 133 L (137-145) mmol/L Potassium 4.2 (3.5-5.1) mmol/L Chloride 101 (98-107) mmol/L Carbon Dioxide 25 (22-30) mmol/L BUN 17 (7-17) mg/dL Creatinine 0.99 (0.52-1.04) mg/dL Glucose 113 H (74-99) mg/dL Calcium 8.5 (8.4-10.2) mg/dL Current Medications Generic Name Dose Route Start Last Admin Trade Name Freq PRN Reason Stop Dose Admin Acetaminophen 650 mg 08/10/18 12:24 Tylenol Tab PO Q6HR PRN Mild Pain or Fever > 100.5 Atorvastatin Calcium 20 mg 08/11/18 21:00 08/11/18 20:37 Lipitor PO 20 mg HS [facility] Administration Sodium Chloride 1,000 mls @ 20 mls/hr 08/10/18 12:30 08/11/18 04:08 Saline 0.9% IV Not Given .Q24H [facility] Diltiazem HCl 50 mg/ Sodium 50 mls @ 5 mls/hr 08/11/18 16:30 08/11/18 22:29 Chloride IV 5 mg/hr .Q10H [facility] 5 mls/hr Administration 5 MG/HR Morphine Sulfate 4 mg 08/10/18 12:24 08/11/18 13:59 Morphine Sulfate (Inj) IV 4 mg Q4HR PRN Administration Severe Pain Naloxone HCl 0.2 mg 08/10/18 12:24 Narcan IV Q2M PRN Opioid Reversal Paroxetine HCl 10 mg 08/11/18 09:15 08/11/18 10:42 Paxil PO 10 mg DAILY [facility] Administration Verapamil HCl 120 mg 08/11/18 09:15 08/11/18 20:37 Isoptin Sr PO 120 mg BID [facility] Administration Intake and Output 08/11/18 08/12/18 08/12/18 22:59 06:59 14:59 Intake Total 269.5 1120 Output Total 500 400 Balance -230.5 720 Intake: Intake, IV Titration 47.5 220 Amount Diltiazem 50 mg In Sodium 27.5 Chloride 0.9% 40 ml @ 5 MG/HR 5 mls/hr IV .Q10H [facility] Rx#:[id number] Sodium Chloride 0.9% 1, 20 220 000 ml @ 20 mls/hr IV . Q24H [facility] Rx#:[id number] Oral 222 900 Output: Urine 500 400 Other: Voiding Method Indwelling Catheter Indwelling Catheter Weight 43 kg 08/12/18 05:16 08/12/18 05:16 EKG Interpretations (text) EKG on presentation here shows normal sinus rhythm with no acute changes. Subsequent EKG shows atrial fibrillation with a rapid ventricular response. Assessment and Plan Plan: Assessment and plan #1 fall with evidence of right hip fracture #2 paroxysmal atrial fibrillation, on Coumadin for anticoagulation. INR this morning 1.8. #2 hyperlipidemia #3 hypertension #4 history of nicotine dependence #5 sick sinus syndrome with prior pacemaker implantation #6 chronic iron deficiency anemia Plan We will obtain an echocardiogram with Doppler study. We will also keep the patient on the IV Cardizem drip. Orthopedics may proceed with surgery today. We will continue to follow patient along with you. Further recommendations to follow. DNP note has been reviewed, I agree with a documented findings and plan of care. Patient was seen and examined.
[2018-08-12] MEDS: PARoxetine 10 MG TAB PO SCH (09:12)
[2018-08-12] MEDS ORDERED: IV FLUID CONTINUATION 200 ML IV ONE (09:15)
--- NOTE | 2018-08-12 09:48 | P.PN ---
Subjective Progress Note Date: 08/11/18 87 years old female patient of Dr. Morgan, Dr. Bryant was seen him once or twice in the clinic with past medical history of atrial fibrillation status post pacemaker on Coumadin, hypertension, history of chronic iron deficiency anemia with the borderline hyperglycemia, hypercholesterolemia, diastolic heart failur, TIA 15 years ago presents after a fall this morning when she was coming off the bed. Patient complains of dizziness but denies any palpitation, chest pain, or shortness of breath. She denies any previous falls. Is independent lives by herself. She was seen by Dr. Morgan in April for shortness of breath and was started on low dose of Lasix for concern of diastolic heart failure. Patient also seen by Dr. Bryant in June and gets echocardiogram every 6 month. Patient does have history of osteoporosis according to the patient no documented DEXA scan in chart. X-ray of the hip suggest a subcapital right hip non-communicated [id number] impaction fracture. Labs done in the ER suggested hemoglobin of 11.7, creatinine 1.03 glucose borderline high 114. No coagulating factors ordered. PT/INR ordered. Internal medicine team consulted for preop clearance. Patient denies any chest pain or shortness of breath. She is independent and ambulates without the use of cane or walker. 08/11: Patient denies any new complaints. Pain is better and seems to be controlled at this time. Hernández catheter is in place. Patient did NOT receive vitamin K yesterday. INR is at 3.1 and vitamin K will be given this afternoon. Blood pressure is on the low side. Patient is tolerating. Patient had episode of A. fib RVR at 147. Cardiology consult requested. Later it was found the patient had difficulty swallowing verapamil and hit it in her napkin was embarrassed to say anything about it. A new dose of verapamil to be given now. Review Of Systems: Constitutional: No fever, no chills, no night sweats. No weight change. No weakness, fatigue or lethargy. No daytime sleepiness. EENT: No headache. No blurred vision or double vision, no loss of vision. No loss of Hearing, no ringing in the ears, no dizziness. No nasal drainage or congestion. No epistaxis. No sore throat. Lungs: No shortness of breath, cough, no sputum production. No wheezing. Cardiovascular: No chest pain, no lower extremity edema. No palpitations. No paroxysmal nocturnal dyspnea. No orthopnea. No lightheadedness or dizziness. No syncopal episodes. Abdominal: No abdominal pain. No nausea, vomiting. No diarrhea. No constipation. No bloody or tarry stools.. No loss of appetite. Genitourinary: No dysuria, increased frequency, urgency. No urinary retention. Musculoskeletal: No myalgias. No muscle weakness, + gait dysfunction, no frequent falls. No back pain. No neck pain.+ Right hip pain Integumentary: No wounds, no lesions. No rash or pruritus. No unusual bruising. No change in hair or nails. Neurologic: No aphasia. No facial droop. No change in mentation. No head injury. No headache. No paralysis. No paresthesia. Psychiatric: No depression. No anxiety. No mood swings. Endocrine: No abnormal blood sugars. No weight change. No excessive sweating or thirst. No cold intolerance. No weight change. Objective - Vital Signs Vital signs: Vital Signs Temp 98.8 F 08/11/18 05:00 Pulse 86 08/11/18 07:15 Resp 16 08/11/18 07:15 BP 118/56 08/11/18 05:00 Pulse Ox 94 L 08/11/18 05:00 Intake & Output 08/10/18 08/11/18 08/11/18 18:59 06:59 18:59 Intake Total 1120 Balance 1120 Weight 43.091 kg Intake: IV 900 Sodium Chloride 0.9% 1, 900 000 ml @ 20 mls/hr IV . Q24H [facility] Rx#:[id number] Oral 220 Other: Voiding Method Indwelling Catheter Indwelling Catheter Indwelling Catheter - Exam General appearance: cooperative, no acute distress, thin - EENT Eyes: anicteric sclerae, PERRLA, normal appearance ENT: hearing grossly normal - Neck Neck: no lymphadenopathy, normal ROM, no other, no rigidity, no stridor, no thyromegaly - Respiratory Respiratory: bilateral: CTA, negative: diminished, dullness, rales, rhonchi - Cardiovascular Rhythm: irregular Heart sounds: normal: S1, S2 Abnormal Heart Sounds: no systolic murmur, 2+ diastolic murmur, no rub, no S3 Gallop, no S4 Gallop - Gastrointestinal General gastrointestinal: normal bowel sounds, soft - Integumentary Integumentary: no rash - Neurologic Neurologic: CNII-XII intact - Musculoskeletal Musculoskeletal: Minimal pain on movement of the right hip, no joint effusion or sensory deficits seen - Psychiatric Psychiatric: A&O x's 3, appropriate affect - Labs CBC & Chem 7: 08/12/18 05:16 08/12/18 05:16 Labs: Abnormal Lab Results - Last 24 Hours (Table) 08/10/18 08/10/18 08/10/18 Range/Units 12:56 12:56 12:56 RDW 20.4 H (11.5-15.5) % Lymphocytes # 0.9 L (1.0-4.8) k/uL PT 24.0 H (9.0-12.0) sec INR 2.7 H (<1.2) BUN 19 H (7-17) mg/dL Glucose 114 H (74-99) mg/dL AST 39 H (14-36) U/L 08/11/18 Range/Units 06:50 RDW (11.5-15.5) % Lymphocytes # (1.0-4.8) k/uL PT 28.2 H (9.0-12.0) sec INR 3.1 H (<1.2) BUN (7-17) mg/dL Glucose (74-99) mg/dL AST (14-36) U/L Assessment and Plan Plan: #1 right hip non-communicated [id number]-gcaem-[id number] impaction fracture of the right femoral neck. Pain control with morphine, Tylenol. Possible underlying osteoporosis need DEXA scan on discharge. Incentive spirometer for pulmonary prophylaxis. Recent echocardiogram did not show any sign of pulmonary artery hypertension. Chest x-ray suggestive of prominent pulmonary artery with possible COPD. On the function tests to be done as outpatient. EKG normal sinus rhythm and no Q waves identified. Patient is at least 4 MET. Patient is saturating well on room air. Patient has less than 1% cardiac risk for any major cardiac event including sudden . Hold Coumadin INR ordered. One dose of vitamin K can be given to reverse INR if elevated for surgery tomorrow. Patient is medically cleared for surgery #2 history of atrial fibrillation status post pacemaker currently on anticoagulation with Coumadin. INR ordered stat. If elevated will give a dose of vitamin K to reverse. Patient has a chads risk of 4. History of TIA 15 years ago, does not need any bridging with heparin prior to surgery. Risk of thromboembolism is low compared to bleeding risk. Continue verapamil 120 mg twice a day #3 history of shortness of breath on exertion with concern of diastolic heart failure on echocardiogram . Cardiology consult as patient is known to Dr. Bryant Patient need outpatient PFTs to assess for COPD as suggested by chest x- ray. Continue Lasix 20 mg by mouth daily for now. #4 chronic iron deficiency anemia continue ferrous sulfate 159 mg by mouth daily #5 GI prophylaxis with Pepcid 20 mg by mouth daily 6. A. fib with RVR. Patient missed dose of verapamil. Cardiology consult has been requested. CODE STATUS DO NOT RESUSCITATE Discharge plan: Impression and plan of care have been directed as dictated by the signing physician. Raven Shaw nurse practitioner acting as scribe for signing physician.
[2018-08-12] MEDS: DILTIAZEM 50 MG in SODIUM CHLORIDE 0.9% 40 ML IV SCH ×3 (09:50→21:56)
--- NOTE | 2018-08-12 09:55 | ECHOF ---
Referral Reason:assess lvf MEASUREMENTS -------- HEIGHT: 157.5 cm WEIGHT: 42.6 kg BP: 101/56 RVIDd: 2.6 cm (< 3.3) IVSd: 0.9 cm (0.6 - 1.1) LVIDd: 4.0 cm (3.9 - 5.3) LVPWd: 1.0 cm (0.6 - 1.1) IVSs: 1.1 cm LVIDs: 2.4 cm LVPWs: 1.6 cm LAESV Index (A-L): 99.63 ml/m Ao Diam: 3.3 cm (2.0 - 3.7) AV Cusp: 1.4 cm (1.5 - 2.6) LA Diam: 5.1 cm (2.7 - 3.8) EPSS: 0.7 cm MV E Bishop: 0.93 m/s MV DecT: 122 ms MV A Bishop: 0.00 m/s MV E/A Ratio: 606.95 AR PHT: 665 ms RAP: 5.00 mmHg RVSP: 53.58 mmHg MV EF SLOPE: 85.51 mm/s (70 - 150) MV EXCURSION: 1.95 cm (> 18.000) FINDINGS -------- Atrial fibrillation. This was a technically good study. The left ventricular size is normal. Left ventricular wall thickness is normal. Overall left vent ricular systolic function is normal with, an EF between 55 - 60 %. The right ventricle is normal in size and function. LA is severely dilated >40 ml/m2 The right atrium is markedly enlarged. Electronic pacemaker lead seen in the right ventricular cavi ty. Aortic valve is trileaflet and is moderately thickened. There is moderate aortic regurgitation. T here is no evidence of aortic stenosis. The mitral valve leaflets are mild to moderately thickened. Mild mitral annular calcification pres ent. Zafzsvth-ae-ifdyhu mitral regurgitation is present. Moderate tricuspid regurgitation present. There is moderate pulmonary hypertension. The right melissa tricular systolic pressure, as measured by Doppler, is 53.58mmHg. Trace/mild (physiologic) pulmonic regurgitation. The aortic root size is normal. IVC Not well visulized. There is no pericardial effusion. CONCLUSIONS -------- 1. Atrial fibrillation. 2. This was a technically good study. 3. The left ventricular size is normal. 4. Left ventricular wall thickness is normal. 5. Overall left ventricular systolic function is normal with, an EF between 55 - 60 %. 6. LA is severely dilated >40 ml/m2 7. The right atrium is markedly enlarged. 8. Electronic pacemaker lead seen in the right ventricular cavity. 9. Aortic valve is trileaflet and is moderately thickened. 10. There is moderate aortic regurgitation. 11. The mitral valve leaflets are mild to moderately thickened. 12. Mild mitral annular calcification present. 13. Qgtobvzm-sw-aeharh mitral regurgitation is present. 14. Moderate tricuspid regurgitation present. 15. There is moderate pulmonary hypertension. 16. The right ventricular systolic pressure, as measured by Doppler, is 53.58mmHg. 17. Trace/mild (physiologic) pulmonic regurgitation. 18. The aortic root size is normal. 19. IVC Not well visulized. 20. There is no pericardial effusion. COLLEGE TUTOR: Frankie Meredith RDCS
[2018-08-12] MEDS ORDERED: LACTATED RINGERS 1,000 ML IV ONE (10:17)
[2018-08-12] MEDS ORDERED: LIDOCAINE 1% 20 ML VIAL (10MG/ML) FOR IV START INTRADERMA ONE (10:18)
[2018-08-12] MEDS ORDERED: NALOXONE 0.4 MG/ML 1 ML VIAL IV PRN (10:53)
[2018-08-12] MEDS ORDERED: HYDROmorphone 1 MG/ML 1 ML SYRINGE IVP PRN ×2 (10:53)
[2018-08-12] MEDS ORDERED: DIAZEPAM 5 MG TAB PO PRN (10:53)
[2018-08-12] MEDS ORDERED: HYDROcodone/APAP 5-325MG 1 EACH TAB PO PRN (10:53)
[2018-08-12] MEDS ORDERED: ceFAZolin 2,000 MG in DEXTROSE/WATER 1 50ML.BAG IVPB STA (10:55)
[2018-08-12] MEDS ORDERED: ceFAZolin IN SWFI 2 GM/20 ML SYRINGE IVP STA (10:59)
[2018-08-12] MEDS ORDERED: NEOSTIGMINE 1 MG/ML 10 ML VIAL ONE (11:31)
[2018-08-12] MEDS ORDERED: fentaNYL (PF) 50 MCG/ML 2 ML AMP ONE (11:31)
[2018-08-12] MEDS ORDERED: PROPOFOL 10 MG/ML 20 ML VIAL IV ONE (11:31)
[2018-08-12] MEDS ORDERED: ROCURONIUM BROMIDE 10 MG/ML 10 ML VIAL IV ONE (11:31)
[2018-08-12] MEDS ORDERED: PHENYLEPHRINE-0.9% NACL SYG 1 MG/10 ML SYRINGE ONE (11:31)
[2018-08-12] MEDS ORDERED: KETAMINE 10 MG/ML 20 ML VIAL ONE (11:31)
[2018-08-12] MEDS ORDERED: SUCCINYLCHOLINE CHLORIDE 100 MG/5 ML SYR IV ONE (11:31)
[2018-08-12] MEDS ORDERED: MIDAZOLAM 2 MG/2 ML VIAL ONE (11:31)
[2018-08-12] MEDS ORDERED: GLYCOPYRROLATE 0.2 MG/ML 2 ML VIAL ONE (11:31)
[2018-08-12] MEDS ORDERED: ceFAZolin 3,000 MG in SODIUM CHLORIDE 0.9% IRRIGATIO 3,000 ML IRRIGATION ONE (11:35)
[2018-08-12] MEDS: SODIUM CHLORIDE 0.9% 1,000 ML IV SCH ×2 (12:26)
--- NOTE | 2018-08-12 12:32 | P.OP ---
Date of Procedure: 08/12/18 Preoperative Diagnosis: Subcapital fracture right hip Postoperative Diagnosis: Subcapital fracture right hip Procedure(s) Performed: Right hip hemiarthroplasty Implants: Padron and nephew Polarstem size 2 standard Padron & Nephew tandem unipolar, 48 mm Padron & Nephew tandem unipolar 12/14 taper sleeve, +0 mm All components were press-fit. Anesthesia: GETA Surgeon: Duncan Reed Limited Radiology Technician #1: Ela Hanley Estimated Blood Loss (ml): 100 Pathology: other (Femoral head) Condition: stable Disposition: PACU Indications for Procedure: This is an 87-year-old female that slipped and fell at home. She sustained a subcapital fracture of her right hip. After discussing the surgical nonsurgical treatment options with her and her family at length, I recommended a right hip hemiarthroplasty. Informed consent was obtained. Operative Findings: The operative findings are consistent with a subcapital fracture of the right hip. Description of Procedure: Patient was seen and evaluated in the preoperative area, consent was reviewed and the operative site was marked with a skin marker. Patient was then brought to the operating room and given 2 g of Ancef intravenously. A spinal anesthetic was administered by the anesthesia department. Patient was then placed in a lateral decubitus position and held with a Montral hip positioner. The bony prominences were well-padded and an axillary roll was placed. The hip was then prepped and draped in the usual sterile fashion. A universal timeout was then performed which confirmed the patient's name, surgical site, ALLERGIES, and procedure. A standard anterolateral approach the hip was performed. Skin and subcutaneous tissues were sharply incised with an incision centered over the tip of the greater trochanter. The incision was carefully dissected down to the fascia. The fascia was then split in line with skin incision and a Charnley retractor was gently placed. The abductors were then identified, and the anterior one third of the abductors were released off the trochanter and one large sleeve. The fracture hematoma was evacuated and the proximal femur was exposed by externally rotating the femur. The fracture site was readily visualized. Next , using an osteotomy guide, the proximal femur was osteotomized at the appropriate level of the above the lesser trochanter. This bone was then removed. Attention was then turned to the femoral head. Using a corkscrew, the femoral head was removed from the acetabulum without incident. The acetabulum was inspected, and found to have no significant arthrosis. Femoral head was then measured. Attention was then redirected to the femur. Proximal femur was re-exposed and a box osteotome was used to lateralize the proximal femur. A orchard hand was then used to locate the femoral canal. Sequential broaching was then performed to the appropriate size. The calcar was then planed and trial head and neck were placed. The hip was then gently reduced. Leg lengths were checked and found to be equal. Hip was then taken through a full range of motion was stable throughout. The hip was then gently dislocated with the aid of a bone hook. The trial head and neck were then removed. The femoral broach was then inspected and found to have a secure fit. The broach was then removed. The hip was then copiously irrigated with antibiotic solution with a pulse lavage. Components were then opened and the femoral stem was then impacted into the proximal femur. The trunnion was cleaned and dried, and the femoral head and neck were then impacted. Hip was again gently reduced. Again leg lengths were checked and found to be equal, and the hip was taken through a full range of motion and found to be stable. The hip was again irrigated with pulsatile lavage, then followed by the Irrrisept solution. The abductors were then repaired through drill holes to the bone to the greater trochanter, utilizing #5 Ethibond suture. Next the fascia was repaired with #2 strata fix suture. The subcutaneous tissue was then repaired with 3-0 Vicryl. The subcuticular tissue was then repaired with 3-0 strata fix suture. Skin was then closed with Dermabond tape. A sterile dressing was then applied and the patient was transported to the recovery room in stable condition. Limited Radiology Technician TIMMY Henry was required due to the complexity of surgery the need for skilled surgical nurse practitioner. She assisted with positioning the patient , draping the patient, retraction during the surgery, and closure of the wound.
--- NOTE | 2018-08-12 13:16 | CDI ---
Last Revision, September 2017 Documentation Clarification Form Date: 08/12/18 From: Marilyn Mcfadden RN Admit Date: 08/10/2018 12:26:00 PM Patient Name: Jewell Riddle Visit Number: [id number] ATTENTION: The Clinical Documentation Specialists (CDI) and [facility] Coding Staff appreciate your assistance in clarifying documentation. Please respond to the clarification below the line at the bottom and electronically sign. The CDI & [facility] Coding staff will review the response and follow-up if needed. Please note: Queries are made part of the Legal Health Record. If you have any questions, please contact the author of this message via ITS. Duncan Avilez DO, Patient has been diagnosed with a closed right hip fracture. Pt. slipped off the bed and landed on her right side. On 08/12 pt. had a right hip hemiartroplasty History/Risk Factors: Osteoporosis, iron deficiency anemia, Raynaud's disease , ex smoker Clinical Indications: X-Ray Results: Subcapital right hip noncomminuted, nonintra-articular impaction fracture. Treatment: Surgery right hip hemiartroplasty Pain management In your professional opinion, please specify the following: Etiology of fracture: Traumatic Pathological (specify cause): Neoplastic disease Other (please specify): Unable to determine Traumatic MTDD
--- NOTE | 2018-08-12 13:31 | XR ---
EXAMINATION TYPE: XR Hip Limited RT DATE OF EXAM: 08/12/2018 COMPARISON: 08/10/2018 HISTORY: Fracture TECHNIQUE: Single AP right hip FINDINGS: Femoral prosthesis is been placed. No acute fractures are evident. Postsurgical changes are within soft tissues IMPRESSION: 1. No acute fractures post right hip replacement
[2018-08-12] MEDS ORDERED: SODIUM CHLORIDE 0.9% 1,000 ML IV ONE (13:48)
--- NOTE | 2018-08-12 14:18 | P.PN ---
Subjective Progress Note Date: 08/12/18 87 years old female patient of Dr. Morgan, Dr. Bryant was seen him once or twice in the clinic with past medical history of atrial fibrillation status post pacemaker on Coumadin, hypertension, history of chronic iron deficiency anemia with the borderline hyperglycemia, hypercholesterolemia, diastolic heart failur, TIA 15 years ago presents after a fall this morning when she was coming off the bed. Patient complains of dizziness but denies any palpitation, chest pain, or shortness of breath. She denies any previous falls. Is independent lives by herself. She was seen by Dr. Morgan in April for shortness of breath and was started on low dose of Lasix for concern of diastolic heart failure. Patient also seen by Dr. Bryant in June and gets echocardiogram every 6 month. Patient does have history of osteoporosis according to the patient no documented DEXA scan in chart. X-ray of the hip suggest a subcapital right hip non-communicated [id number] impaction fracture. Labs done in the ER suggested hemoglobin of 11.7, creatinine 1.03 glucose borderline high 114. No coagulating factors ordered. PT/INR ordered. Internal medicine team consulted for preop clearance. Patient denies any chest pain or shortness of breath. She is independent and ambulates without the use of cane or walker. 08/11: Patient denies any new complaints. Pain is better and seems to be controlled at this time. Hernández catheter is in place. Patient did NOT receive vitamin K yesterday. INR is at 3.1 and vitamin K will be given this afternoon. Blood pressure is on the low side. Patient is tolerating. Patient had episode of A. fib RVR at 147. Cardiology consult requested. Later it was found the patient had difficulty swallowing verapamil and hit it in her napkin was embarrassed to say anything about it. A new dose of verapamil to be given now. 08/12: Patient is gone for surgery. She is on IV Cardizem. Echocardiogram reveals EF of 55-60%, LAD severely dilated greater than 40, severe mitral regurgitation, moderate tricuspid regurgitation, moderate pulmonary hypertension , moderate aortic regurgitation. Review Of Systems: Constitutional: No fever, no chills, no night sweats. No weight change. No weakness, fatigue or lethargy. No daytime sleepiness. EENT: No headache. No blurred vision or double vision, no loss of vision. No loss of Hearing, no ringing in the ears, no dizziness. No nasal drainage or congestion. No epistaxis. No sore throat. Lungs: No shortness of breath, cough, no sputum production. No wheezing. Cardiovascular: No chest pain, no lower extremity edema. No palpitations. No paroxysmal nocturnal dyspnea. No orthopnea. No lightheadedness or dizziness. No syncopal episodes. Abdominal: No abdominal pain. No nausea, vomiting. No diarrhea. No constipation. No bloody or tarry stools.. No loss of appetite. Genitourinary: No dysuria, increased frequency, urgency. No urinary retention. Musculoskeletal: No myalgias. No muscle weakness, + gait dysfunction, no frequent falls. No back pain. No neck pain.+ Right hip pain Integumentary: No wounds, no lesions. No rash or pruritus. No unusual bruising. No change in hair or nails. Neurologic: No aphasia. No facial droop. No change in mentation. No head injury. No headache. No paralysis. No paresthesia. Psychiatric: No depression. No anxiety. No mood swings. Endocrine: No abnormal blood sugars. No weight change. No excessive sweating or thirst. No cold intolerance. No weight change. Objective - Vital Signs Vital signs: Vital Signs Temp 98.9 F 08/12/18 09:45 Pulse 81 08/12/18 09:43 Resp 16 08/12/18 09:43 BP 114/80 08/12/18 09:43 Pulse Ox 94 L 08/12/18 09:43 Intake & Output 08/11/18 08/12/18 08/12/18 18:59 06:59 18:59 Intake Total 905 1364.5 Output Total 1000 400 Balance -95 964.5 Weight 43 kg Intake: IV 160 Sodium Chloride 0.9% 1, 160 000 ml @ 20 mls/hr IV . Q24H [facility] Rx#:[id number] Intake, IV Titration 25 242.5 Amount Diltiazem 50 mg In Sodium 5 22.5 Chloride 0.9% 40 ml @ 5 MG/HR 5 mls/hr IV .Q10H [facility] Rx#:[id number] Sodium Chloride 0.9% 1, 20 220 000 ml @ 20 mls/hr IV . Q24H [facility] Rx#:[id number] Oral 720 1122 Output: Urine 1000 400 Other: Voiding Method Indwelling Catheter Indwelling Catheter Indwelling Catheter - Exam General appearance: cooperative, no acute distress, thin - EENT Eyes: anicteric sclerae, PERRLA, normal appearance ENT: hearing grossly normal - Neck Neck: no lymphadenopathy, normal ROM, no other, no rigidity, no stridor, no thyromegaly - Respiratory Respiratory: bilateral: CTA, negative: diminished, dullness, rales, rhonchi - Cardiovascular Rhythm: irregular Heart sounds: normal: S1, S2 Abnormal Heart Sounds: no systolic murmur, 2+ diastolic murmur, no rub, no S3 Gallop, no S4 Gallop - Gastrointestinal General gastrointestinal: normal bowel sounds, soft - Integumentary Integumentary: no rash - Neurologic Neurologic: CNII-XII intact - Musculoskeletal Musculoskeletal: Minimal pain on movement of the right hip, no joint effusion or sensory deficits seen - Psychiatric Psychiatric: A&O x's 3, appropriate affect - Labs CBC & Chem 7: 08/12/18 05:16 08/12/18 05:16 Labs: Abnormal Lab Results - Last 24 Hours (Table) 08/11/18 08/11/18 08/12/18 Range/Units 13:47 21:27 05:16 Hgb (11.4-16.0) gm/dL RDW (11.5-15.5) % PT 23.8 H 16.8 H (9.0-12.0) sec INR 2.7 H 1.8 H (<1.2) APTT 31.5 H (22.0-30.0) sec Sodium (137-145) mmol/L Glucose (74-99) mg/dL Urine Appearance Cloudy H (Clear) Urine Protein Trace H (Negative) Urine Blood Moderate H (Negative) Ur Leukocyte Esterase Large H (Negative) Urine RBC 78 H (0-5) /hpf Urine WBC 45 H (0-5) /hpf Urine Bacteria Rare H (None) /hpf Urine Mucus Rare H (None) /hpf 08/12/18 08/12/18 Range/Units 05:16 05:16 Hgb 11.0 L (11.4-16.0) gm/dL RDW 20.6 H (11.5-15.5) % PT (9.0-12.0) sec INR (<1.2) APTT (22.0-30.0) sec Sodium 133 L (137-145) mmol/L Glucose 113 H (74-99) mg/dL Urine Appearance (Clear) Urine Protein (Negative) Urine Blood (Negative) Ur Leukocyte Esterase (Negative) Urine RBC (0-5) /hpf Urine WBC (0-5) /hpf Urine Bacteria (None) /hpf Urine Mucus (None) /hpf Microbiology - Last 24 Hours (Table) 08/11/18 13:47 Urine Culture - Preliminary Urine,Voided Assessment and Plan Plan: #1 right hip non-communicated [id number] impaction fracture of the right femoral neck. Pain control with morphine, Tylenol. Possible underlying osteoporosis need DEXA scan on discharge. Incentive spirometer for pulmonary prophylaxis. Recent echocardiogram did not show any sign of pulmonary artery hypertension. Chest x-ray suggestive of prominent pulmonary artery with possible COPD. On the function tests to be done as outpatient. EKG normal sinus rhythm and no Q waves identified. Patient is at least 4 MET. Patient is saturating well on room air. Patient has less than 1% cardiac risk for any major cardiac event including sudden . Hold Coumadin INR ordered. One dose of vitamin K can be given to reverse INR if elevated for surgery tomorrow. Patient is medically cleared for surgery #2 history of atrial fibrillation status post pacemaker currently on anticoagulation with Coumadin. INR ordered stat. If elevated will give a dose of vitamin K to reverse. Patient has a chads risk of 4. History of TIA 15 years ago, does not need any bridging with heparin prior to surgery. Risk of thromboembolism is low compared to bleeding risk. Continue verapamil 120 mg twice a day #3 history of shortness of breath on exertion with concern of diastolic heart failure on echocardiogram . Cardiology consult as patient is known to Dr. Bryant Patient need outpatient PFTs to assess for COPD as suggested by chest x- ray. Continue Lasix 20 mg by mouth daily for now. #4 chronic iron deficiency anemia continue ferrous sulfate 159 mg by mouth daily #5 GI prophylaxis with Pepcid 20 mg by mouth daily 6. A. fib with RVR. Patient missed dose of verapamil. Cardiology consult has been requested. CODE STATUS DO NOT RESUSCITATE Discharge plan: Impression and plan of care have been directed as dictated by the signing physician. Raven Shaw nurse practitioner acting as scribe for signing physician.
[2018-08-12] MEDS: HYDROmorphone 1 MG/ML 1 ML SYRINGE IVP PRN ×2 (15:03→21:05)
[2018-08-12] MEDS: ceFAZolin IN SWFI 2 GM/20 ML SYRINGE IVP SCH (16:01)
[2018-08-12] MEDS ORDERED: WARFARIN 2.5 MG TAB PO ONE (18:00)
[2018-08-12] MEDS: ATORVASTATIN 20 MG TAB PO SCH (20:56)
[2018-08-12] MEDS: SENNOSIDES-DOCUSATE SODIUM 1 EACH TAB PO SCH (21:08)
[2018-08-13] MEDS: HYDROcodone/APAP 5-325MG 1 EACH TAB PO PRN ×3 (02:35→16:29)
[2018-08-13] MEDS: SODIUM CHLORIDE 0.9% 1,000 ML IV SCH ×2 (02:47→08:51)
[2018-08-13] MEDS: ceFAZolin IN SWFI 2 GM/20 ML SYRINGE IVP SCH (02:48)
[2018-08-13] MEDS: DILTIAZEM 50 MG in SODIUM CHLORIDE 0.9% 40 ML IV SCH (08:52)
[2018-08-13] MEDS: VERAPAMIL SR 120 MG TABLET.ER PO SCH ×3 (08:58→21:09)
[2018-08-13] MEDS: PARoxetine 10 MG TAB PO SCH (09:00)
--- NOTE | 2018-08-13 09:24 | P.PN ---
Subjective Progress Note Date: 08/13/18 This is an 87-year-old female who is status post right hip hemiarthroplasty. This is postoperative day #1. Patient states that she does have pain in the right hip, but it is controlled. Patient states that she has not been out of bed yet, but did sit at the edge of her bed yesterday. Patient denies any fever/ chills, chest pain, shortness breath, abdominal pain, numbness, weakness or tingling. Objective - Vital Signs Vital signs: Vital Signs Temp 98.2 F 08/13/18 08:00 Pulse 102 H 08/13/18 08:00 Resp 16 08/13/18 08:00 BP 101/57 08/13/18 08:00 Pulse Ox 100 08/13/18 08:00 Intake & Output 08/12/18 08/13/18 08/13/18 18:59 06:59 18:59 Intake Total 821 180 50 Output Total 400 175 Balance 421 5 50 Weight 44 kg Intake: IV 731 180 Sodium Chloride 0.9% 1, 180 000 ml @ 20 mls/hr IV . Q24H [facility] Rx#:[id number] Intake, IV Titration 50 Amount Diltiazem 50 mg In Sodium 50 Chloride 0.9% 40 ml @ 5 MG/HR 5 mls/hr IV .Q10H [facility] Rx#:[id number] Oral 90 Output: Urine 300 175 Estimated Blood Loss 100 Other: Voiding Method Indwelling Catheter Indwelling Catheter - Exam On exam patient is alert and oriented resting comfortably in bed in no acute distress. Dressing is clean, dry and intact. Minimal soft tissue swelling. No erythema. Abductor pillow in place. Calf is soft and nontender to palpation. Sensation intact. Full foot and ankle motion of the right lower extremity. Neurovascular status and circulatory status are intact. - Labs CBC & Chem 7: 08/12/18 05:16 08/12/18 05:16 Labs: Microbiology - Last 24 Hours (Table) 08/11/18 13:47 Urine Culture - Final Urine,Voided Assessment and Plan Assessment: Atrial fibrillation Iron deficiency anemia Exertional shortness of breath. History of breast cancer. (1) Subcapital fracture of right hip Current Visit: Yes Status: Acute Code(s): S72.011A - UNSP INTRACAPSULAR FRACTURE OF RIGHT FEMUR, INIT FOR CLOS FX SNOMED Code(s): 478696785 (2) Closed right hip fracture Current Visit: Yes Status: Acute Code(s): S72.001A - FRACTURE OF UNSP PART OF NECK OF RIGHT FEMUR, INIT SNOMED Code(s): 352801490 Plan: 1. Patient is to be weight-bearing as tolerated to the right lower extremity. 2. Rest and ice the right hip. 3. Continue routine postoperative care and pain control 4. Continue hip dislocation precautions with abductor pillow. 5. Coumadin for anticoagulation per internal medicine. 6. Appreciate input from medicine. 7. Anticipate discharge to rehab in the next 1-2 days if cleared medically.
--- NOTE | 2018-08-13 10:43 | PN ---
PROGRESS NOTE Mrs. Riddle is an 87-year-old female with a history of paroxysmal atrial fibrillation who presented with a fall and fractured hip, underwent surgical intervention yesterday by Dr. Reed with ORIF of her right hip. She is doing well this morning. She is denying any chest pain. She had discomfort in the hip. Her breathing is stable. She is in atrial fibrillation with episode of rapid ventricular response. She denies any dizziness, palpitation. She denies any nausea. She continued on IV Cardizem. She had an echocardiogram revealed preserved ventricular systolic function with moderate mitral with a moderate aortic with moderate to severe mitral regurgitation and moderate tricuspid regurgitation with moderate pulmonary hypertension. She continues to be at on the IV Cardizem. In addition to that, she is on verapamil 120 mg twice a day, Coumadin. PHYSICAL EXAMINATION: Blood pressure 101/50 with a heart rate in the 110-120. LUNGS: Clear. HEART: Irregular, regular. S1, S2. No S3 with a holosystolic murmur in the apex radiating to the axilla. ABDOMEN: Soft, nontender. EXTREMITIES: No edema. IMPRESSION: 1. Status post fall and fracture of the hip, status post open reduction internal fixation. 2. Paroxysmal atrial fibrillation, anticoagulated with episode of rapid ventricular response. 3. Mitral regurgitation. RECOMMENDATION: I will stop the IV Cardizem, start on a beta derek. Continue the anticoagulation. Follow her INR. Depending on her progress, further recommendation will be made. MMODL / IJN: [id number] /
[2018-08-13 11:26] LABS: INR 1.2 (<1.2); Prothrombin Time 11.4 sec (9.0-12.0)
[2018-08-13] MEDS ORDERED: HYDROmorphone 2 MG TAB PO PRN ×3 (11:35→11:36)
[2018-08-13] MEDS: METOPROLOL TARTRATE 25 MG TAB PO SCH ×2 (11:40→21:09)
[2018-08-13] MEDS ORDERED: METOPROLOL TARTRATE 25 MG TAB PO STA (13:02)
[2018-08-13] MEDS ORDERED: SODIUM CHLORIDE 0.9% 500 ML 250 ML IV ONE (13:57)
[2018-08-13 14:51] LABS: Anisocytosis Moderate; Basophils % (A) 0 %; Eosinophils % (A) 0 %; HCT 32.1 % (34.0-46.0); HGB 9.8 gm/dL (11.4-16.0); Hypochromasia Marked; Lymphocytes # (A) 1.8 k/uL (1.0-4.8); Lymphocytes % (A) 19 %; MCH 27.4 pg (25.0-35.0); MCHC 30.6 g/dL (31.0-37.0); MCV 89.6 fL (80.0-100.0); Mean Platelet Volume 9.5; Monocytes # (A) 0.8 k/uL (0-1.0); Monocytes % (A) 8 %; Neutrophils # (A) 6.9 k/uL (1.3-7.7); Neutrophils % (A) 70 %; Platelet Count 183 k/uL (150-450); RBC 3.58 m/uL (3.80-5.40); RDW 20.2 % (11.5-15.5); WBC 9.8 k/uL (3.8-10.6)
[2018-08-13 14:53] LABS: Calcium 8.6 mg/dL (8.4-10.2); Potassium 4.7 mmol/L (3.5-5.1)
[2018-08-13] MEDS ORDERED: WARFARIN 2.5 MG TAB PO ONE (18:00)
[2018-08-13] MEDS: SENNOSIDES-DOCUSATE SODIUM 1 EACH TAB PO SCH (21:08)
[2018-08-13] MEDS: ATORVASTATIN 20 MG TAB PO SCH (21:09)
[2018-08-14] MEDS: HYDROcodone/APAP 5-325MG 1 EACH TAB PO PRN (05:39)
[2018-08-14] MEDS: SODIUM CHLORIDE 0.9% 1,000 ML IV SCH ×2 (05:39→13:10)
[2018-08-14 07:06] LABS: Anisocytosis Moderate; Basophils % (A) 0 %; Eosinophils % (A) 0 %; HCT 27.1 % (34.0-46.0); HGB 8.4 gm/dL (11.4-16.0); Hypochromasia Slight; Lymphocytes # (A) 1.2 k/uL (1.0-4.8); Lymphocytes % (A) 15 %; MCH 27.1 pg (25.0-35.0); MCHC 30.9 g/dL (31.0-37.0); MCV 87.6 fL (80.0-100.0); Mean Platelet Volume 9.3; Monocytes # (A) 0.5 k/uL (0-1.0); Monocytes % (A) 6 %; Neutrophils # (A) 6.1 k/uL (1.3-7.7); Neutrophils % (A) 76 %; Platelet Count 156 k/uL (150-450); RBC 3.09 m/uL (3.80-5.40); RDW 20.3 % (11.5-15.5)
[2018-08-14 07:17] LABS: INR 1.5 (<1.2); Prothrombin Time 14.1 sec (9.0-12.0)
[2018-08-14 07:34] LABS: Calcium 8.2 mg/dL (8.4-10.2)
[2018-08-14] MEDS ORDERED: WARFARIN 2.5 MG TAB PO ONE (08:00)
--- NOTE | 2018-08-14 09:03 | P.PN ---
Subjective Progress Note Date: 08/14/18 This is an 87-year-old female who is status post right hip hemiarthroplasty. This is postoperative day #2. Patient states that her pain is well-controlled. Patient states that she did stand at bedside yearterday with physical therapy. Patient states that she has not had a bowel movement yet. Patient denies any fever/chills, chest pain, shortness breath, abdominal pain, numbness, weakness or tingling. Objective - Vital Signs Vital signs: Vital Signs Temp 97.7 F 08/13/18 23:45 Pulse 66 08/14/18 05:22 Resp 16 08/14/18 03:57 BP 96/60 08/14/18 05:22 Pulse Ox 98 08/14/18 03:57 Intake & Output 08/13/18 08/14/18 08/14/18 18:59 06:59 18:59 Intake Total 1080 520 Output Total 510 Balance 1080 10 Weight 44 kg 44.3 kg Intake: IV 550 520 Sodium Chloride 0.9% 1, 40 000 ml @ 20 mls/hr IV . Q24H [facility] Rx#:[id number] Sodium Chloride 0.9% 1, 260 520 000 ml @ 65 mls/hr IV . [id number] [facility] Rx#:[id number] Sodium Chloride 0.9% 500 250 ml 250 ml @ 999 mls/hr IV .Q16M [facility] Rx#:[id number] Intake, IV Titration 50 Amount Diltiazem 50 mg In Sodium 50 Chloride 0.9% 40 ml @ 5 MG/HR 5 mls/hr IV .Q10H [facility] Rx#:[id number] Oral 480 Output: Urine 510 Other: Voiding Method Indwelling Catheter Indwelling Catheter - Exam On exam patient is alert and oriented resting comfortably in bed in no acute distress. Dressing is clean, dry and intact. Minimal soft tissue swelling. No erythema. Abductor pillow in place. Calf is soft and nontender to palpation. Sensation intact. Full foot and ankle motion of the right lower extremity. Neurovascular status and circulatory status are intact. - Labs CBC & Chem 7: 08/14/18 06:04 08/14/18 06:04 Labs: Abnormal Lab Results - Last 24 Hours (Table) 08/13/18 08/13/18 08/13/18 Range/Units 10:34 10:34 10:34 RBC 3.58 L (3.80-5.40) m/uL Hgb 9.8 L (11.4-16.0) gm/dL Hct 32.1 L (34.0-46.0) % MCHC 30.6 L (31.0-37.0) g/dL RDW 20.2 H (11.5-15.5) % PT (9.0-12.0) sec INR 1.2 H (<1.2) Sodium 135 L (137-145) mmol/L Carbon Dioxide 21 L (22-30) mmol/L BUN 18 H (7-17) mg/dL Creatinine 1.10 H (0.52-1.04) mg/dL Glucose 163 H (74-99) mg/dL Calcium (8.4-10.2) mg/dL 08/14/18 08/14/18 08/14/18 Range/Units 06:04 06:04 06:04 RBC 3.09 L (3.80-5.40) m/uL Hgb 8.4 L (11.4-16.0) gm/dL Hct 27.1 L (34.0-46.0) % MCHC 30.9 L (31.0-37.0) g/dL RDW 20.3 H (11.5-15.5) % PT 14.1 H (9.0-12.0) sec INR 1.5 H (<1.2) Sodium 131 L (137-145) mmol/L Carbon Dioxide 20 L (22-30) mmol/L BUN 33 H (7-17) mg/dL Creatinine 1.61 H (0.52-1.04) mg/dL Glucose 112 H (74-99) mg/dL Calcium 8.2 L (8.4-10.2) mg/dL Assessment and Plan Assessment: Atrial fibrillation Iron deficiency anemia Exertional shortness of breath. History of breast cancer. (1) Subcapital fracture of right hip Current Visit: Yes Status: Acute Code(s): S72.011A - UNSP INTRACAPSULAR FRACTURE OF RIGHT FEMUR, INIT FOR CLOS FX SNOMED Code(s): 905840637 (2) Closed right hip fracture Current Visit: Yes Status: Acute Code(s): S72.001A - FRACTURE OF UNSP PART OF NECK OF RIGHT FEMUR, INIT SNOMED Code(s): 772550686 Plan: 1. Patient is to be weight-bearing as tolerated to the right lower extremity. 2. Rest and ice the right hip. 3. Continue routine postoperative care and pain control 4. Continue hip dislocation precautions with abductor pillow. 5. Coumadin for anticoagulation per internal medicine. 6. Appreciate input from medicine. 7. Anticipate discharge to rehab in the next 1-2 days if cleared medically.
[2018-08-14] MEDS: PARoxetine 10 MG TAB PO SCH (09:09)
[2018-08-14] MEDS: METOPROLOL TARTRATE 25 MG TAB PO SCH (09:10)
[2018-08-14] MEDS: VERAPAMIL SR 120 MG TABLET.ER PO SCH (09:10)
--- NOTE | 2018-08-14 11:43 | P.PN ---
Subjective Progress Note Date: 08/13/18 87 years old female patient of Dr. Morgan, Dr. Bryant was seen him once or twice in the clinic with past medical history of atrial fibrillation status post pacemaker on Coumadin, hypertension, history of chronic iron deficiency anemia with the borderline hyperglycemia, hypercholesterolemia, diastolic heart failur, TIA 15 years ago presents after a fall this morning when she was coming off the bed. Patient complains of dizziness but denies any palpitation, chest pain, or shortness of breath. She denies any previous falls. Is independent lives by herself. She was seen by Dr. Morgan in April for shortness of breath and was started on low dose of Lasix for concern of diastolic heart failure. Patient also seen by Dr. Bryant in June and gets echocardiogram every 6 month. Patient does have history of osteoporosis according to the patient no documented DEXA scan in chart. X-ray of the hip suggest a subcapital right hip non-communicated [id number] impaction fracture. Labs done in the ER suggested hemoglobin of 11.7, creatinine 1.03 glucose borderline high 114. No coagulating factors ordered. PT/INR ordered. Internal medicine team consulted for preop clearance. Patient denies any chest pain or shortness of breath. She is independent and ambulates without the use of cane or walker. 08/11: Patient denies any new complaints. Pain is better and seems to be controlled at this time. Hernández catheter is in place. Patient did NOT receive vitamin K yesterday. INR is at 3.1 and vitamin K will be given this afternoon. Blood pressure is on the low side. Patient is tolerating. Patient had episode of A. fib RVR at 147. Cardiology consult requested. Later it was found the patient had difficulty swallowing verapamil and hit it in her napkin was embarrassed to say anything about it. A new dose of verapamil to be given now. 08/12: Patient is gone for surgery. She is on IV Cardizem. Echocardiogram reveals EF of 55-60%, LAD severely dilated greater than 40, severe mitral regurgitation, moderate tricuspid regurgitation, moderate pulmonary hypertension , moderate aortic regurgitation. 08/13: Patient underwent right hip hemiarthroplasty yesterday with Dr. Reed. Patient is to be weightbearing as tolerated on the right lower extremity. Coumadin for anticoagulation which pharmacy is dosing. INR is 1.2. Patient had A. fib with RVR during the night running in the 120s. Radiology is planning to give additional dose of Lopressor, and discontinue Cardizem drip and continue beta derek. TSH 2.260. Hernández catheter in place draining dark urine. Patient is encouraged to increase fluid intake. Urine culture finalized with no growth. She is doing incentive spirometry and only 500 and infrequently. Patient encouraged to do this every hour. Hemoglobin 11, pulse ox 90% on 2 L, anticipate discharge to rehab on Thursday Review Of Systems: Constitutional: No fever, no chills, no night sweats. No weight change. No weakness, fatigue or lethargy. No daytime sleepiness. EENT: No headache. No blurred vision or double vision, no loss of vision. No loss of Hearing, no ringing in the ears, no dizziness. No nasal drainage or congestion. No epistaxis. No sore throat. Lungs: No shortness of breath, cough, no sputum production. No wheezing. Cardiovascular: No chest pain, no lower extremity edema. No palpitations. No paroxysmal nocturnal dyspnea. No orthopnea. No lightheadedness or dizziness. No syncopal episodes. Abdominal: No abdominal pain. No nausea, vomiting. No diarrhea. No constipation. No bloody or tarry stools.. No loss of appetite. Genitourinary: No dysuria, increased frequency, urgency. No urinary retention. Musculoskeletal: No myalgias. No muscle weakness, + gait dysfunction, no frequent falls. No back pain. No neck pain.+ Right hip pain Integumentary: + wounds, no lesions. No rash or pruritus. No unusual bruising. Neurologic: No aphasia. No facial droop. No change in mentation. No head injury. No headache. No paralysis. No paresthesia. Psychiatric: No depression. No anxiety. No mood swings. Endocrine: No abnormal blood sugars. No weight change. No excessive sweating or thirst. No cold intolerance. No weight change. Objective - Vital Signs Vital signs: Vital Signs Temp 98.2 F 08/13/18 08:00 Pulse 102 H 08/13/18 08:00 Resp 16 08/13/18 08:00 BP 101/57 08/13/18 08:00 Pulse Ox 100 08/13/18 08:00 Intake & Output 08/12/18 08/13/1818 18:59 06:59 18:59 Intake Total 821 180 50 Output Total 400 175 Balance 421 5 50 Weight 44 kg Intake: IV 731 180 Sodium Chloride 0.9% 1, 180 000 ml @ 20 mls/hr IV . Q24H [facility] Rx#:[id number] Intake, IV Titration 50 Amount Diltiazem 50 mg In Sodium 50 Chloride 0.9% 40 ml @ 5 MG/HR 5 mls/hr IV .Q10H [facility] Rx#:[id number] Oral 90 Output: Urine 300 175 Estimated Blood Loss 100 Other: Voiding Method Indwelling Catheter Indwelling Catheter Indwelling Catheter - Exam General appearance: cooperative, no acute distress, thin, patient sitting up in bed and eating lunch - EENT Eyes: anicteric sclerae, PERRLA, normal appearance ENT: hearing grossly normal - Neck Neck: no lymphadenopathy, normal ROM, no other, no rigidity, no stridor, no thyromegaly - Respiratory Respiratory: bilateral: CTA, negative: diminished, dullness, rales, rhonchi - Cardiovascular Rhythm: irregular Heart sounds: normal: S1, S2 Abnormal Heart Sounds: no systolic murmur, 2+ diastolic murmur, no rub, no S3 Gallop, no S4 Gallop - Gastrointestinal General gastrointestinal: normal bowel sounds, soft - Integumentary Integumentary: no rash - Neurologic Neurologic: CNII-XII intact - Musculoskeletal Musculoskeletal: Dressing to the right hip, no breakthrough bleeding or drainage - Psychiatric Psychiatric: A&O x's 3, appropriate affect - Labs CBC & Chem 7: 08/14/18 06:04 08/14/18 06:04 Labs: Microbiology - Last 24 Hours (Table) 08/11/18 13:47 Urine Culture - Final Urine,Voided Assessment and Plan Plan: 1. Right subcapital fracture status post right hip hemiarthroplasty completed on 08/12. Continue pain management per orthopedics, PT, OT. Coumadin for DVT prophylaxis, dosed by pharmacy. Incentive spirometry to reduce incidence of atelectasis and hospital-acquired pneumonia. 2. Atrial fibrillation with RVR with underlying paroxysmal atrial fibrillation. Patient is currently on Cardizem drip, to be discontinued and start Lopressor at 25 mg twice daily. Coumadin to be dosed daily by pharmacy. 3. History of sick sinus syndrome with prior pacemaker implantation. 4. History of shortness of breath on exertion with concern for diastolic heart failure on echocardiogram. Recommend outpatient PFTs to assess for COPD. 5. GI prophylaxis. 6. DVT prophylaxis. 7. CODE STATUS: DO NOT RESUSCITATE. Discharge plan: Subacute rehab at either [facility] or [facility] Impression and plan of care have been directed as dictated by the signing physician. Raven Shaw nurse practitioner acting as scribe for signing physician.
--- NOTE | 2018-08-14 11:46 | P.PN ---
Subjective Progress Note Date: 08/14/18 87 years old female patient of Dr. Morgan, Dr. Bryant was seen him once or twice in the clinic with past medical history of atrial fibrillation status post pacemaker on Coumadin, hypertension, history of chronic iron deficiency anemia with the borderline hyperglycemia, hypercholesterolemia, diastolic heart failur, TIA 15 years ago presents after a fall this morning when she was coming off the bed. Patient complains of dizziness but denies any palpitation, chest pain, or shortness of breath. She denies any previous falls. Is independent lives by herself. She was seen by Dr. Morgan in April for shortness of breath and was started on low dose of Lasix for concern of diastolic heart failure. Patient also seen by Dr. Bryant in June and gets echocardiogram every 6 month. Patient does have history of osteoporosis according to the patient no documented DEXA scan in chart. X-ray of the hip suggest a subcapital right hip non-communicated [id number] impaction fracture. Labs done in the ER suggested hemoglobin of 11.7, creatinine 1.03 glucose borderline high 114. No coagulating factors ordered. PT/INR ordered. Internal medicine team consulted for preop clearance. Patient denies any chest pain or shortness of breath. She is independent and ambulates without the use of cane or walker. 08/11: Patient denies any new complaints. Pain is better and seems to be controlled at this time. Hernández catheter is in place. Patient did NOT receive vitamin K yesterday. INR is at 3.1 and vitamin K will be given this afternoon. Blood pressure is on the low side. Patient is tolerating. Patient had episode of A. fib RVR at 147. Cardiology consult requested. Later it was found the patient had difficulty swallowing verapamil and hit it in her napkin was embarrassed to say anything about it. A new dose of verapamil to be given now. 08/12: Patient is gone for surgery. She is on IV Cardizem. Echocardiogram reveals EF of 55-60%, LAD severely dilated greater than 40, severe mitral regurgitation, moderate tricuspid regurgitation, moderate pulmonary hypertension , moderate aortic regurgitation. 08/13: Patient underwent right hip hemiarthroplasty yesterday with Dr. Reed. Patient is to be weightbearing as tolerated on the right lower extremity. Coumadin for anticoagulation which pharmacy is dosing. INR is 1.2. Patient had A. fib with RVR during the night running in the 120s. Radiology is planning to give additional dose of Lopressor, and discontinue Cardizem drip and continue beta derek. TSH 2.260. Hernández catheter in place draining dark urine. Patient is encouraged to increase fluid intake. Urine culture finalized with no growth. She is doing incentive spirometry and only 500 and infrequently. Patient encouraged to do this every hour. Hemoglobin 11, pulse ox 90% on 2 L, anticipate discharge to rehab on Tuesday 08/14: Patient is seen this morning in her room. Her heart rate has been controlled and blood pressure is on the lower side for which Lopressor will be decreased to 12.5 g twice daily. Hemoglobin is at 8.5. INR 1.5. BUN 33 and creatinine 1.61 and IV fluids will be increased 100 mL per hour for 24 hours and then plan to decrease to 75. We will reassess tomorrow. Iron will be resumed at 325 mg daily and iron studies ordered. Plan is for discharge to [facility] on Thursday Review Of Systems: Constitutional: No fever, no chills, no night sweats. No weight change. No weakness, fatigue or lethargy. No daytime sleepiness. EENT: No headache. No blurred vision or double vision, no loss of vision. No loss of Hearing, no ringing in the ears, no dizziness. No nasal drainage or congestion. No epistaxis. No sore throat. Lungs: No shortness of breath, cough, no sputum production. No wheezing. Cardiovascular: No chest pain, no lower extremity edema. No palpitations. No paroxysmal nocturnal dyspnea. No orthopnea. No lightheadedness or dizziness. No syncopal episodes. Abdominal: No abdominal pain. No nausea, vomiting. No diarrhea. No constipation. No bloody or tarry stools.. No loss of appetite. Genitourinary: No dysuria, increased frequency, urgency. No urinary retention. Musculoskeletal: No myalgias. No muscle weakness, + gait dysfunction, no frequent falls. No back pain. No neck pain.+ Right hip pain Integumentary: + wounds, no lesions. No rash or pruritus. No unusual bruising. Neurologic: No aphasia. No facial droop. No change in mentation. No head injury. No headache. No paralysis. No paresthesia. Psychiatric: No depression. No anxiety. No mood swings. Endocrine: No abnormal blood sugars. No weight change. No excessive sweating or thirst. No cold intolerance. No weight change. Objective - Vital Signs Vital signs: Vital Signs Temp 97.7 F 08/13/18 23:45 Pulse 94 08/14/18 08:00 Resp 16 08/14/18 08:00 BP 92/53 08/14/18 08:00 Pulse Ox 99 08/14/18 08:00 Intake & Output 08/13/18 08/14/18 08/14/18 18:59 06:59 18:59 Intake Total 1080 520 Output Total 510 Balance 1080 10 Weight 44 kg 44.3 kg Intake: IV 550 520 Sodium Chloride 0.9% 1, 40 000 ml @ 20 mls/hr IV . Q24H KILEY Rx#:[id number] Sodium Chloride 0.9% 1, 260 520 000 ml @ 65 mls/hr IV . [id number] KILEY Rx#:[id number] Sodium Chloride 0.9% 500 250 ml 250 ml @ 999 mls/hr IV .Q16M ONE Rx#:[id number] Intake, IV Titration 50 Amount Diltiazem 50 mg In Sodium 50 Chloride 0.9% 40 ml @ 5 MG/HR 5 mls/hr IV .Q10H KILEY Rx#:[id number] Oral 480 Output: Urine 510 Other: Voiding Method Indwelling Catheter Indwelling Catheter - Exam General appearance: cooperative, no acute distress, thin, patient sitting up in bed and appears comfortable - EENT Eyes: anicteric sclerae, PERRLA, normal appearance ENT: hearing grossly normal - Neck Neck: no lymphadenopathy, normal ROM, no other, no rigidity, no stridor, no thyromegaly - Respiratory Respiratory: bilateral: CTA, negative: diminished, dullness, rales, rhonchi - Cardiovascular Rhythm: irregular Heart sounds: normal: S1, S2 Abnormal Heart Sounds: no systolic murmur, 2+ diastolic murmur, no rub, no S3 Gallop, no S4 Gallop - Gastrointestinal General gastrointestinal: normal bowel sounds, soft - Integumentary Integumentary: no rash - Neurologic Neurologic: CNII-XII intact - Musculoskeletal Musculoskeletal: Dressing to the right hip, no breakthrough bleeding or drainage - Psychiatric Psychiatric: A&O x's 3, appropriate affect - Labs CBC & Chem 7: 08/14/18 06:04 08/14/18 06:04 Labs: Abnormal Lab Results - Last 24 Hours (Table) 08/13/18 08/13/18 08/13/18 Range/Units 10:34 10:34 10:34 RBC 3.58 L (3.80-5.40) m/uL Hgb 9.8 L (11.4-16.0) gm/dL Hct 32.1 L (34.0-46.0) % MCHC 30.6 L (31.0-37.0) g/dL RDW 20.2 H (11.5-15.5) % PT (9.0-12.0) sec INR 1.2 H (<1.2) Sodium 135 L (137-145) mmol/L Carbon Dioxide 21 L (22-30) mmol/L BUN 18 H (7-17) mg/dL Creatinine 1.10 H (0.52-1.04) mg/dL Glucose 163 H (74-99) mg/dL Calcium (8.4-10.2) mg/dL 08/14/18 08/14/18 08/14/18 Range/Units 06:04 06:04 06:04 RBC 3.09 L (3.80-5.40) m/uL Hgb 8.4 L (11.4-16.0) gm/dL Hct 27.1 L (34.0-46.0) % MCHC 30.9 L (31.0-37.0) g/dL RDW 20.3 H (11.5-15.5) % PT 14.1 H (9.0-12.0) sec INR 1.5 H (<1.2) Sodium 131 L (137-145) mmol/L Carbon Dioxide 20 L (22-30) mmol/L BUN 33 H (7-17) mg/dL Creatinine 1.61 H (0.52-1.04) mg/dL Glucose 112 H (74-99) mg/dL Calcium 8.2 L (8.4-10.2) mg/dL Assessment and Plan Plan: 1. Right subcapital fracture status post right hip hemiarthroplasty completed on 08/12. Continue pain management per orthopedics, PT, OT. Coumadin for DVT prophylaxis, dosed by pharmacy. Incentive spirometry to reduce incidence of atelectasis and hospital-acquired pneumonia. 2. Atrial fibrillation with RVR with underlying paroxysmal atrial fibrillation. Patient is currently on Cardizem drip, to be discontinued and start Lopressor at 25 mg twice daily. Coumadin to be dosed daily by pharmacy. 3. History of sick sinus syndrome with prior pacemaker implantation. 4. History of shortness of breath on exertion with concern for diastolic heart failure on echocardiogram. Recommend outpatient PFTs to assess for COPD. 5. GI prophylaxis. 6. DVT prophylaxis. 7. Acute kidney injury with chronic kidney disease stage III. IV fluids are cc per hour for the next 24 hours. Re-evaluate lab work in the morning. CODE STATUS: DO NOT RESUSCITATE. Discharge plan: Subacute rehab at either [facility] or [facility] Impression and plan of care have been directed as dictated by the signing physician. Raven Shaw nurse practitioner acting as scribe for signing physician.
--- NOTE | 2018-08-14 12:13 | P.PN ---
Subjective Progress Note Date: 08/14/18 This is a pleasant 87-year-old female who follows regularly with Dr. Bryant in the office. She has known history of paroxysmal atrial fibrillation, and is on Coumadin for anticoagulation. History also of hyperlipidemia, hypertension, family history of premature coronary artery disease, prior nicotine dependence, sick sinus syndrome with prior pacemaker implantation she presented to the hospital on this occasion after experiencing a fall at home. She states that she was getting up out of her bed, felt mildly dizzy and fell onto the floor. She denies any syncope. She called out to her daughter, and was brought to the hospital for further evaluation. Right hip and pelvis x-ray revealed subcapital right hip noncomminuted impaction fracture. Chest x-ray shows cardiomegaly, scoliosis, possible pulmonary arterial hypertension. Blood pressure on arrival 140/70 with a heart rate in the 90s, temperature 97.9, 96% on room air. White blood cell count 8.0, hemoglobin 11, platelet count 164. INR this morning 1.8. Sodium 133, potassium 4.2, BUN 17, creatinine 0.9. EKG on admission here showed a normal sinus rhythm, subsequently through the night patient went into atrial fibrillation with rapid ventricular response and continues to be in A. fib this morning. She is on a Cardizem drip 5 mg per hour. At the time of my examination this morning, patient is resting comfortably in bed, she denies any severe pain in her hips this morning, she has been given pain medication. She denies any recent angina, no recent syncopal episodes. 08/14/2018 Patient is status post right hip hemiarthroplasty. She was seen and examined this morning, daughter is at bedside. Patient overall feels well, denies any chest pain or difficulty in breathing. Having mild discomfort at her right hip. Waiting to get up with physical therapy this morning. INR today is 1.5, hemoglobin 8.4, creatinine 1.6 which is up from 1.0 yesterday. Blood pressure this morning is 90/60 she is receiving IV fluids at 100 mL per hour. We will discontinue the by mouth verapamil and continue her beta derek. Her heart rate this morning in the 80s, normal sinus rhythm. Objective - Vital Signs Vital signs: Vital Signs Temp 97.7 F 08/13/18 23:45 Pulse 81 08/14/18 11:57 Resp 16 08/14/18 11:57 BP 107/56 08/14/18 11:57 Pulse Ox 99 08/14/18 08:00 Intake & Output 08/13/18 08/14/18 08/14/18 18:59 06:59 18:59 Intake Total 1080 520 240 Output Total 510 Balance 1080 10 240 Weight 44 kg 44.3 kg Intake: IV 550 520 Sodium Chloride 0.9% 1, 40 000 ml @ 20 mls/hr IV . Q24H KILEY Rx#:[id number] Sodium Chloride 0.9% 1, 260 520 000 ml @ 65 mls/hr IV . [id number] KILEY Rx#:[id number] Sodium Chloride 0.9% 500 250 ml 250 ml @ 999 mls/hr IV .Q16M ONE Rx#:[id number] Intake, IV Titration 50 Amount Diltiazem 50 mg In Sodium 50 Chloride 0.9% 40 ml @ 5 MG/HR 5 mls/hr IV .Q10H KILEY Rx#:[id number] Oral 480 240 Output: Urine 510 Other: Voiding Method Indwelling Catheter Indwelling Catheter Indwelling Catheter - Exam PHYSICAL EXAMINATION: GENERAL: 87-year-old female in no acute distress at the time of my examination HEENT: Head is atraumatic, normocephalic. Pupils equal, round. Sclera anicteric. Conjunctiva are clear. Mucous membranes of the mouth are moist. Neck is supple. There is no elevated jugular venous pressure. No carotid bruit is heard. HEART EXAMINATION: Heart S1 and S2 a systolic murmur is heard. CHEST EXAMINATION: Lungs are clear to auscultation and precussion. No chest wall tenderness is noted on palpation or with deep breathing. ABDOMEN: Soft, nontender. Bowel sounds are heard. No organomegaly noted. EXTREMITIES: 2+ peripheral pulses with no evidence of peripheral edema and no calf tenderness noted. Dressing to right hip. NEUROLOGIC patient is awake, alert and oriented 3 . . - Labs CBC & Chem 7: 08/14/18 06:04 08/14/18 06:04 Labs: Abnormal Lab Results - Last 24 Hours (Table) 08/13/18 08/13/18 08/14/18 Range/Units 10:34 10:34 06:04 RBC 3.58 L 3.09 L (3.80-5.40) m/uL Hgb 9.8 L 8.4 L (11.4-16.0) gm/dL Hct 32.1 L 27.1 L (34.0-46.0) % MCHC 30.6 L 30.9 L (31.0-37.0) g/dL RDW 20.2 H 20.3 H (11.5-15.5) % PT (9.0-12.0) sec INR (<1.2) Sodium 135 L (137-145) mmol/L Carbon Dioxide 21 L (22-30) mmol/L BUN 18 H (7-17) mg/dL Creatinine 1.10 H (0.52-1.04) mg/dL Glucose 163 H (74-99) mg/dL Calcium (8.4-10.2) mg/dL 08/14/18 08/14/18 Range/Units 06:04 06:04 RBC (3.80-5.40) m/uL Hgb (11.4-16.0) gm/dL Hct (34.0-46.0) % MCHC (31.0-37.0) g/dL RDW (11.5-15.5) % PT 14.1 H (9.0-12.0) sec INR 1.5 H (<1.2) Sodium 131 L (137-145) mmol/L Carbon Dioxide 20 L (22-30) mmol/L BUN 33 H (7-17) mg/dL Creatinine 1.61 H (0.52-1.04) mg/dL Glucose 112 H (74-99) mg/dL Calcium 8.2 L (8.4-10.2) mg/dL Assessment and Plan Plan: Assessment and plan #1 fall with evidence of right hip fracture status post right hip arthroplasty #2 paroxysmal atrial fibrillation, on Coumadin for anticoagulation. INR this morning 1.5. Currently in normal sinus rhythm. #2 hyperlipidemia #3 hypertension #4 history of nicotine dependence #5 sick sinus syndrome with prior pacemaker implantation #6 chronic iron deficiency anemia Plan We will discontinue the patient's verapamil this morning. Continue IV fluids at 100 mL per hour. Continue Coumadin to maintain an INR of 2-2.5. DNP note has been reviewed, I agree with a documented findings and plan of care. Patient was seen and examined.
[2018-08-14] MEDS: FERROUS SULFATE 325 MG TAB PO SCH (13:09)
[2018-08-14 17:33] LABS: Iron Saturation 3.04 (12.00-45.00)
[2018-08-14] MEDS: METOPROLOL TARTRATE 12.5 MG TAB PO SCH (21:04)
[2018-08-14] MEDS: SENNOSIDES-DOCUSATE SODIUM 1 EACH TAB PO SCH (21:05)
[2018-08-14] MEDS: ATORVASTATIN 20 MG TAB PO SCH (21:05)
[2018-08-14] MEDS ORDERED: METOPROLOL TARTRATE 25 MG TAB PO STA (21:29)
[2018-08-14] MEDS: AMIODARONE 200 MG TAB PO SCH (21:36)
[2018-08-15] MEDS: HYDROcodone/APAP 5-325MG 1 EACH TAB PO PRN (01:00)
[2018-08-15] MEDS ORDERED: METOPROLOL TARTRATE 25 MG TAB PO STA (01:14)
[2018-08-15 06:02] LABS: Anisocytosis Moderate; HCT 26.8 % (34.0-46.0); HGB 8.4 gm/dL (11.4-16.0); Hypochromasia Marked; MCH 28.4 pg (25.0-35.0); MCHC 31.4 g/dL (31.0-37.0); MCV 90.5 fL (80.0-100.0); Mean Platelet Volume 8.7; Platelet Count 168 k/uL (150-450); RBC 2.97 m/uL (3.80-5.40); RDW 20.1 % (11.5-15.5); WBC 8.6 k/uL (3.8-10.6)
[2018-08-15 06:25] LABS: INR 2.4 (<1.2); Prothrombin Time 21.8 sec (9.0-12.0)
[2018-08-15 06:35] LABS: Calcium 8.2 mg/dL (8.4-10.2); Potassium 4.8 mmol/L (3.5-5.1)
--- NOTE | 2018-08-15 09:56 | P.PN ---
Subjective Progress Note Date: 08/15/18 This is an 87-year-old female who is status post right hip hemiarthroplasty. This is postoperative day #3. Patient states that her pain is well-controlled. Patient states that she was able to work with physical therapy yesterday and feels she is doing better. Patient denies any fever/chills, chest pain, shortness breath, abdominal pain, numbness, weakness or tingling. Objective - Vital Signs Vital signs: Vital Signs Temp 98.1 F 08/15/18 03:22 Pulse 106 H 08/15/18 03:22 Resp 14 08/15/18 03:22 BP 89/55 08/15/18 03:22 Pulse Ox 95 08/15/18 03:22 Intake & Output 08/14/18 08/15/18 08/15/18 19:59 06:59 18:59 Intake Total Output Total Balance Weight Intake: Oral Output: Urine Uretheral (Hernández) Other: Voiding Method - Exam On exam patient is alert and oriented resting comfortably in bed in no acute distress. Dressing is clean, dry and intact. Minimal soft tissue swelling. No erythema. Abductor pillow in place. Calf is soft and nontender to palpation. Sensation intact. Full foot and ankle motion of the right lower extremity. Neurovascular status and circulatory status are intact. - Labs CBC & Chem 7: 08/15/18 05:11 08/15/18 05:11 Labs: Abnormal Lab Results - Last 24 Hours (Table) 08/14/18 08/15/18 08/15/18 Range/Units 06:04 05:11 05:11 RBC 2.97 L (3.80-5.40) m/uL Hgb 8.4 L (11.4-16.0) gm/dL Hct 26.8 L (34.0-46.0) % RDW 20.1 H (11.5-15.5) % PT 21.8 H (9.0-12.0) sec INR 2.4 H (<1.2) Sodium (137-145) mmol/L Carbon Dioxide (22-30) mmol/L BUN (7-17) mg/dL Creatinine (0.52-1.04) mg/dL Glucose (74-99) mg/dL Calcium (8.4-10.2) mg/dL Iron 9 L (50-170) ug/dL Iron Saturation 3.04 L (12.00-45.00) 08/15/18 Range/Units 05:11 RBC (3.80-5.40) m/uL Hgb (11.4-16.0) gm/dL Hct (34.0-46.0) % RDW (11.5-15.5) % PT (9.0-12.0) sec INR (<1.2) Sodium 131 L (137-145) mmol/L Carbon Dioxide 19 L (22-30) mmol/L BUN 35 H (7-17) mg/dL Creatinine 1.22 H (0.52-1.04) mg/dL Glucose 110 H (74-99) mg/dL Calcium 8.2 L (8.4-10.2) mg/dL Iron (50-170) ug/dL Iron Saturation (12.00-45.00) Assessment and Plan Assessment: Atrial fibrillation Iron deficiency anemia Exertional shortness of breath. History of breast cancer. (1) Subcapital fracture of right hip Current Visit: Yes Status: Acute Code(s): S72.011A - UNSP INTRACAPSULAR FRACTURE OF RIGHT FEMUR, INIT FOR CLOS FX SNOMED Code(s): 776760181 (2) Closed right hip fracture Current Visit: Yes Status: Acute Code(s): S72.001A - FRACTURE OF UNSP PART OF NECK OF RIGHT FEMUR, INIT SNOMED Code(s): 556963971 Plan: 1. Patient is to be weight-bearing as tolerated to the right lower extremity. 2. Rest and ice the right hip. 3. Continue routine postoperative care and pain control. 4. Continue hip dislocation precautions with abductor pillow. 5. Coumadin for anticoagulation per internal medicine. 6. Appreciate input from medicine. 7. Anticipate discharge to rehab Thursday if cleared medically.
[2018-08-15] MEDS: PARoxetine 10 MG TAB PO SCH (09:58)
[2018-08-15] MEDS: AMIODARONE 200 MG TAB PO SCH ×2 (09:58→21:52)
[2018-08-15] MEDS: SODIUM CHLORIDE 0.9% 1,000 ML IV SCH ×3 (10:05→18:17)
[2018-08-15] MEDS: METOPROLOL TARTRATE 12.5 MG TAB PO SCH ×2 (10:08→10:10)
--- NOTE | 2018-08-15 11:20 | P.PN ---
Subjective Progress Note Date: 08/15/18 87 years old female patient of Dr. Morgan, Dr. Bryant was seen him once or twice in the clinic with past medical history of atrial fibrillation status post pacemaker on Coumadin, hypertension, history of chronic iron deficiency anemia with the borderline hyperglycemia, hypercholesterolemia, diastolic heart failur, TIA 15 years ago presents after a fall this morning when she was coming off the bed. Patient complains of dizziness but denies any palpitation, chest pain, or shortness of breath. She denies any previous falls. Is independent lives by herself. She was seen by Dr. Morgan in April for shortness of breath and was started on low dose of Lasix for concern of diastolic heart failure. Patient also seen by Dr. Bryant in June and gets echocardiogram every 6 month. Patient does have history of osteoporosis according to the patient no documented DEXA scan in chart. X-ray of the hip suggest a subcapital right hip non-communicated [id number] impaction fracture. Labs done in the ER suggested hemoglobin of 11.7, creatinine 1.03 glucose borderline high 114. No coagulating factors ordered. PT/INR ordered. Internal medicine team consulted for preop clearance. Patient denies any chest pain or shortness of breath. She is independent and ambulates without the use of cane or walker. 08/11: Patient denies any new complaints. Pain is better and seems to be controlled at this time. Hernández catheter is in place. Patient did NOT receive vitamin K yesterday. INR is at 3.1 and vitamin K will be given this afternoon. Blood pressure is on the low side. Patient is tolerating. Patient had episode of A. fib RVR at 147. Cardiology consult requested. Later it was found the patient had difficulty swallowing verapamil and hit it in her napkin was embarrassed to say anything about it. A new dose of verapamil to be given now. 08/12: Patient is gone for surgery. She is on IV Cardizem. Echocardiogram reveals EF of 55-60%, LAD severely dilated greater than 40, severe mitral regurgitation, moderate tricuspid regurgitation, moderate pulmonary hypertension , moderate aortic regurgitation. 08/13: Patient underwent right hip hemiarthroplasty yesterday with Dr. Reed. Patient is to be weightbearing as tolerated on the right lower extremity. Coumadin for anticoagulation which pharmacy is dosing. INR is 1.2. Patient had A. fib with RVR during the night running in the 120s. Radiology is planning to give additional dose of Lopressor, and discontinue Cardizem drip and continue beta derek. TSH 2.260. Hernández catheter in place draining dark urine. Patient is encouraged to increase fluid intake. Urine culture finalized with no growth. She is doing incentive spirometry and only 500 and infrequently. Patient encouraged to do this every hour. Hemoglobin 11, pulse ox 90% on 2 L, anticipate discharge to rehab on Tuesday 08/14: Patient is seen this morning in her room. Her heart rate has been controlled and blood pressure is on the lower side for which Lopressor will be decreased to 12.5 g twice daily. Hemoglobin is at 8.5. INR 1.5. BUN 33 and creatinine 1.61 and IV fluids will be increased 100 mL per hour for 24 hours and then plan to decrease to 75. We will reassess tomorrow. Iron will be resumed at 325 mg daily and iron studies ordered. Plan is for discharge to ECF on Wednesday 08/15: BUN 35 and creatinine 1.22. IV fluids will be continued for another 24 hours but at 75 mL per hour. We will start Ferrlecit treatment one today and one tomorrow. INR is therapeutic at 2.4. Patient had tachycardia last night and was started on amiodarone 400 mg twice daily. We will increase Lopressor to 12.5 during the day and 25 at bedtime. Patient denies having any chest pain or chest pressure. No palpitations. She denies having any weakness. Hernández catheter remains in place which anticipate this will be discontinued today as she increases activity with PT. Patient is scheduled for rehab for tomorrow. Review Of Systems: Constitutional: No fever, no chills, no night sweats. No weight change. No weakness, fatigue or lethargy. No daytime sleepiness. EENT: No headache. No blurred vision or double vision, no loss of vision. No nasal drainage or congestion. No epistaxis. No sore throat. Lungs: No shortness of breath, cough, no sputum production. No wheezing. Cardiovascular: No chest pain, no lower extremity edema. No palpitations. No paroxysmal nocturnal dyspnea. No orthopnea. No lightheadedness or dizziness. No syncopal episodes. Abdominal: No abdominal pain. No nausea, vomiting. No diarrhea. No constipation. No bloody or tarry stools.. No loss of appetite. Genitourinary: No dysuria, increased frequency, urgency. No urinary retention. Musculoskeletal: No myalgias. No muscle weakness, + gait dysfunction, no frequent falls. No back pain. No neck pain.+ Right hip pain Integumentary: + wounds, no lesions. No rash or pruritus. No unusual bruising. Neurologic: No aphasia. No facial droop. No change in mentation. No head injury. No headache. No paralysis. No paresthesia. Psychiatric: No depression. No anxiety. No mood swings. Endocrine: No abnormal blood sugars. No weight change. No excessive sweating or thirst. No cold intolerance. No weight change. Objective - Vital Signs Vital signs: Vital Signs Temp 98.1 F 08/15/18 03:22 Pulse 106 H 08/15/18 03:22 Resp 14 08/15/18 03:22 BP 89/55 08/15/18 03:22 Pulse Ox 95 08/15/18 03:22 Intake & Output 08/14/18 08/15/18 08/15/18 19:59 06:59 18:59 Intake Total Output Total Balance Weight Intake: Oral Output: Urine Uretheral (Hernández) Other: Voiding Method - Exam General appearance: no acute distress, thin, patient sitting up in bed and appears comfortable, - EENT Eyes: anicteric sclerae, PERRLA, normal appearance ENT: hearing grossly normal - Neck Neck: no lymphadenopathy, normal ROM, no other, no rigidity, no stridor, no thyromegaly - Respiratory Respiratory: bilateral: CTA, negative: diminished, dullness, rales, rhonchi - Cardiovascular Rhythm: irregular Heart sounds: normal: S1, S2 Abnormal Heart Sounds: no systolic murmur, 2+ diastolic murmur, no rub, no S3 Gallop, no S4 Gallop - Gastrointestinal General gastrointestinal: normal bowel sounds, soft - Integumentary Integumentary: no rash - Neurologic Neurologic: CNII-XII intact - Musculoskeletal Musculoskeletal: Dressing to the right hip, no breakthrough bleeding or drainage - Psychiatric Psychiatric: A&O x's 3, appropriate affect - Labs CBC & Chem 7: 08/15/18 05:11 08/15/18 05:11 Labs: Abnormal Lab Results - Last 24 Hours (Table) 11/03/18 11/04/18 11/04/18 Range/Units 06:04 05:11 05:11 RBC 2.97 L (3.80-5.40) m/uL Hgb 8.4 L (11.4-16.0) gm/dL Hct 26.8 L (34.0-46.0) % RDW 20.1 H (11.5-15.5) % PT 21.8 H (9.0-12.0) sec INR 2.4 H (<1.2) Sodium (137-145) mmol/L Carbon Dioxide (22-30) mmol/L BUN (7-17) mg/dL Creatinine (0.52-1.04) mg/dL Glucose (74-99) mg/dL Calcium (8.4-10.2) mg/dL Iron 9 L (50-170) ug/dL Iron Saturation 3.04 L (12.00-45.00) 08/15/18 Range/Units 05:11 RBC (3.80-5.40) m/uL Hgb (11.4-16.0) gm/dL Hct (34.0-46.0) % RDW (11.5-15.5) % PT (9.0-12.0) sec INR (<1.2) Sodium 131 L (137-145) mmol/L Carbon Dioxide 19 L (22-30) mmol/L BUN 35 H (7-17) mg/dL Creatinine 1.22 H (0.52-1.04) mg/dL Glucose 110 H (74-99) mg/dL Calcium 8.2 L (8.4-10.2) mg/dL Iron (50-170) ug/dL Iron Saturation (12.00-45.00) Assessment and Plan Plan: 1. Right subcapital fracture status post right hip hemiarthroplasty completed on 08/12. Continue pain management per orthopedics, PT, OT. Coumadin for DVT prophylaxis, dosed by pharmacy. Incentive spirometry to reduce incidence of atelectasis and hospital-acquired pneumonia. 2. Atrial fibrillation with RVR with underlying paroxysmal atrial fibrillation. Coumadin is therapeutic. The patient is currently on amiodarone 400 mg twice daily Lopressor 12.5 mg in the morning and 25 mg at bedtime. 3. History of sick sinus syndrome with prior pacemaker implantation. 4. History of shortness of breath on exertion with concern for diastolic heart failure on echocardiogram. Recommend outpatient PFTs to assess for COPD. 5. GI prophylaxis. 6. DVT prophylaxis. 7. Acute kidney injury with chronic kidney disease stage III. IV fluids are 75cc per hour for the next 24 hours. Re-evaluate lab work in the morning. 8. Anemia secondary to a combination of acute blood loss and acute kidney injury. Ferrlecit ordered for today and tomorrow. CODE STATUS: DO NOT RESUSCITATE. Discharge plan: Subacute rehab at either [facility] or [facility] Impression and plan of care have been directed as dictated by the signing physician. Raven Shaw nurse practitioner acting as scribe for signing physician.
[2018-08-15] MEDS ORDERED: METOPROLOL TARTRATE 12.5 MG TAB PO STA (12:54)
[2018-08-15] MEDS: SODIUM FERRIC GLUCONAT-SUCROSE 125 MG in SODIUM CHLORIDE 0.9% 100 ML IVPB SCH (13:05)
[2018-08-15] MEDS: FERROUS SULFATE 325 MG TAB PO SCH (13:05)
--- NOTE | 2018-08-15 13:59 | US ---
EXAMINATION TYPE: US venous doppler duplex LE RT DATE OF EXAM: 08/15/2018 12:58 PM COMPARISON: NONE CLINICAL HISTORY: swelling. right total hip 3 days prior, swelling to leg, no h/o dvt SIDE PERFORMED: Right TECHNIQUE: The lower extremity deep venous system is examined utilizing real time linear array sonog julio with graded compression, doppler sonography and color-flow sonography. VESSELS IMAGED: External Iliac Vein (EIV) Common Femoral Vein Deep Femoral Vein Greater Saphenous Vein * Femoral Vein Popliteal Vein Small Saphenous Vein * Proximal Calf Veins (* superficial vessels) Right Leg: Appears negative for DVT No popliteal fossa lesion is identified. IMPRESSION: THIS EXAMINATION IS NEGATIVE FOR DVT WITHIN THE RIGHT LEG.
--- NOTE | 2018-08-15 15:29 | PN ---
PROGRESS NOTE Mrs Riddle is an 87-year-old female who presented after a fall and a fractured hip. She has history of paroxysmal atrial fibrillation. She is doing well this morning. Her breathing is stable. She is denying any symptoms of chest pain. She denies any dizziness or palpitation. She denies any nausea. She went back into atrial fibrillation last night with episode of rapid ventricular response. Her blood pressure is on the low side at that time. She is feeling much better compared to yesterday. She continues to be on amiodarone 400 mg twice a day and was started on that yesterday because of her tachycardia. She is on Lipitor 20 mg daily, metoprolol tartrate 25 mg at night and 12.5 in the morning and her Coumadin. PHYSICAL EXAMINATION: Her blood pressure is running in the 90-100 with a heart rate in the low 100s to 90s. LUNGS: Clear. HEART: Irregular regular. S1, S2. No S3. No rub. ABDOMEN: Soft, nontender. EXTREMITIES: No edema. LAB DATA: BUN and creatinine 25 and 1.22, potassium 4.8. Her hemoglobin is 8.4. IMPRESSION: 1. Status post ORIF for fractured hip. 2. Paroxysmal atrial fibrillation. Patient had episode of rapid ventricular response. 3. Anemia. 4. Hyperlipidemia. 5. History of permanent pacemaker implantation. RECOMMENDATION: We will continue present therapy. Follow her renal function closely. Depending on her blood pressure, the dose of her beta derek will be adjusted. I will continue on the amiodarone at this time, hoping to maintain sinus mechanism and depending on her progress further recommendation will be made. MMODL / IJN: [id number] /
[2018-08-15] MEDS ORDERED: WARFARIN 1.25 MG TAB PO ONE (18:00)
[2018-08-15] MEDS ORDERED: METOPROLOL TARTRATE 25 MG TAB PO SCH (21:00)
[2018-08-15] MEDS: SENNOSIDES-DOCUSATE SODIUM 1 EACH TAB PO SCH (21:51)
[2018-08-15] MEDS: ATORVASTATIN 20 MG TAB PO SCH (21:53)
[2018-08-16] MEDS: SODIUM CHLORIDE 0.9% 1,000 ML IV SCH (04:22)
[2018-08-16 06:11] LABS: Anisocytosis Moderate; HCT 25.3 % (34.0-46.0); Hypochromasia Slight; MCH 27.4 pg (25.0-35.0); MCHC 31.8 g/dL (31.0-37.0); MCV 86.4 fL (80.0-100.0); Platelet Count 195 k/uL (150-450); RBC 2.93 m/uL (3.80-5.40); RDW 20.1 % (11.5-15.5); WBC 8.7 k/uL (3.8-10.6)
[2018-08-16 06:28] LABS: INR 2.9 (<1.2); Prothrombin Time 25.8 sec (9.0-12.0)
[2018-08-16 06:38] LABS: Calcium 7.9 mg/dL (8.4-10.2); Potassium 4.7 mmol/L (3.5-5.1)
[2018-08-16] MEDS: AMIODARONE 200 MG TAB PO SCH ×2 (07:58→21:07)
[2018-08-16] MEDS: METOPROLOL TARTRATE 12.5 MG TAB PO SCH (07:58)
[2018-08-16] MEDS: PARoxetine 10 MG TAB PO SCH (07:59)
[2018-08-16] MEDS: MAGNESIUM HYDROXIDE 2,400 MG/10 ML CUP PO PRN (07:59)
[2018-08-16] MEDS: HYDROcodone/APAP 5-325MG 1 EACH TAB PO PRN (08:06)
--- NOTE | 2018-08-16 08:22 | P.DS ---
Providers Date of admission: 08/10/18 12:26 Expected date of discharge: 08/16/18 Attending physician: Duncan Reed Consults: 08/10/18 12:26 Consult Physician Urgent Consulting Provider: Haroon Morgan Consult Reason/Comments: Medical care Do you want consulting provider notified?: Yes 08/10/18 13:30 Consult Physician Routine Consulting Provider: Kareem Schofield Consult Reason/Comments: h/o atrial fib, on anticoag Do you want consulting provider notified?: Yes 08/11/18 15:19 Consult Physician Routine Consulting Provider: Kareem Schofield Consult Reason/Comments: afib, episdoe of RVR, hip sx tomorrow Do you want consulting provider notified?: Yes Primary care physician: Haroon Morgan - Discharge Diagnosis(es) (1) Subcapital fracture of right hip Current Visit: Yes Status: Acute (2) Closed right hip fracture Current Visit: Yes Status: Acute Hospital Course: This is an 87-year-old female who sustained a fracture of the right hip after a fall on 08/10/2018. The patient is admitted for evaluation. After discussion and consideration patient elects to proceed with right hip hemiarthroplasty. The patient is seen preoperatively by Dr. Reed and medically cleared for surgery by internal medicine and cardiology. Patient is admitted to [facility] on 08/10/2018 for right hip hemiarthroplasty. The procedures performed without complication or sequelae. The patient is doing well postoperatively. Labs and vital signs are stable on day of discharge. Patient has been tachycardic and this is being managed closely by internal medicine and cardiology. A venous doppler ultrasound of the right lower extremity was negative for DVT. On day of discharge patient's hip incision is healing well. There is minimal erythema. There is no drainage noted at this time. There is minimal soft tissue swelling to the hip and thigh. Patient has full foot and ankle motion without difficulty or pain. Neurovascular status to the right lower extremity is intact. Patient is discharged to rehab in good condition. Please see med rec for accurate list of home medications. Plan - Discharge Summary Discharge Rx Participant: No New Discharge Prescriptions: New HYDROcodone/APAP 5-325MG [[place] 5-325] 1 - 2 tab PO Q4-6H PRN #84 tab PRN Reason: Pain Sennosides [Senokot] 1 tab PO BID #60 tablet No Action Warfarin [Coumadin] 2.5 mg PO MOTUTHSA Verapamil HCl [Verapamil ER] 120 mg PO BID Simvastatin [Zocor] 40 mg PO HS PARoxetine [Paxil] 10 mg PO DAILY Warfarin [Coumadin] 1.25 mg PO SUWEFR Furosemide [Lasix] 20 mg PO DAILY Ferrous Sulfate, Dried [Slow Release Iron] 159 mg PO DAILY@1200 Discharge Medication List PARoxetine [Paxil] 10 mg PO DAILY 08/28/17 [History] Simvastatin [Zocor] 40 mg PO HS 08/28/17 [History] Verapamil HCl [Verapamil ER] 120 mg PO BID 08/28/17 [History] Warfarin [Coumadin] 2.5 mg PO MOTUTHSA 08/28/17 [History] Ferrous Sulfate, Dried [Slow Release Iron] 159 mg PO DAILY@1200 08/10/18 [ History] Furosemide [Lasix] 20 mg PO DAILY 08/10/18 [History] Warfarin [Coumadin] 1.25 mg PO SUWEFR 08/10/18 [History] HYDROcodone/APAP 5-325MG [[place] 5-325] 1 - 2 tab PO Q4-6H PRN #84 tab 08/14/18 [ Rx] Sennosides [Senokot] 1 tab PO BID #60 tablet 08/14/18 [Rx] Follow up Appointment(s)/Referral(s): Haroon Morgan MD [Primary Care Provider] - 1 Week (at [facility]) Duncan Reed DO [Doctor of Osteopathic Medicine] - 2 Weeks Patient Instructions/Handouts: Hip Fracture (ED) Activity/Diet/Wound Care/Special Instructions: possible rehab on dc Anticoagulation per internal medicine. Weightbearing as tolerated with walker. Leave dressing intact. Dressing may be removed by home care nurse in 10 days. May shower with dressing on. Continue use if abductor pillow for 6 weeks post op. Follow-up with [facility] in 2 weeks, please call with any questions or concerns [phone]. Discharge Disposition: TRANSFER TO SNF/ECF
[2018-08-16] MEDS ORDERED: DILTIAZEM DRIP BOLUS FROM BAG 1 MG SOLN IV ONE (08:30)
[2018-08-16] MEDS: METOPROLOL TARTRATE 25 MG TAB PO SCH ×2 (08:49→21:06)
[2018-08-16] MEDS ORDERED: METOPROLOL TARTRATE 12.5 MG TAB PO STA (08:49)
[2018-08-16] MEDS ORDERED: METOPROLOL TARTRATE 12.5 MG TAB PO SCH (09:00)
[2018-08-16] MEDS: DILTIAZEM 50 MG in SODIUM CHLORIDE 0.9% 40 ML IV SCH ×3 (09:27→21:08)
--- NOTE | 2018-08-16 12:35 | P.PN ---
Subjective Progress Note Date: 08/16/18 This is a pleasant 87-year-old female who follows regularly with Dr. Bryant in the office. She has known history of paroxysmal atrial fibrillation, and is on Coumadin for anticoagulation. History also of hyperlipidemia, hypertension, family history of premature coronary artery disease, prior nicotine dependence, sick sinus syndrome with prior pacemaker implantation she presented to the hospital on this occasion after experiencing a fall at home. She states that she was getting up out of her bed, felt mildly dizzy and fell onto the floor. She denies any syncope. She called out to her daughter, and was brought to the hospital for further evaluation. Right hip and pelvis x-ray revealed subcapital right hip noncomminuted impaction fracture. Chest x-ray shows cardiomegaly, scoliosis, possible pulmonary arterial hypertension. Blood pressure on arrival 140/70 with a heart rate in the 90s, temperature 97.9, 96% on room air. White blood cell count 8.0, hemoglobin 11, platelet count 164. INR this morning 1.8. Sodium 133, potassium 4.2, BUN 17, creatinine 0.9. EKG on admission here showed a normal sinus rhythm, subsequently through the night patient went into atrial fibrillation with rapid ventricular response and continues to be in A. fib this morning. She is on a Cardizem drip 5 mg per hour. At the time of my examination this morning, patient is resting comfortably in bed, she denies any severe pain in her hips this morning, she has been given pain medication. She denies any recent angina, no recent syncopal episodes. 08/14/2018 Patient is status post right hip hemiarthroplasty. She was seen and examined this morning, daughter is at bedside. Patient overall feels well, denies any chest pain or difficulty in breathing. Having mild discomfort at her right hip. Waiting to get up with physical therapy this morning. INR today is 1.5, hemoglobin 8.4, creatinine 1.6 which is up from 1.0 yesterday. Blood pressure this morning is 90/60 she is receiving IV fluids at 100 mL per hour. We will discontinue the by mouth verapamil and continue her beta derek. Her heart rate this morning in the 80s, normal sinus rhythm. 08/16/2018 Patient seen and examined this morning, in atrial fibrillation, heart rate up in the 130s to 140s this morning. IV Cardizem bolus was given and patient was initiated on IV Cardizem drip. She continues to be on oral beta derek which revealed increased this morning. Also on by mouth amiodarone. Overall the patient feels well, denies any palpitations, no dizziness at present. Blood pressure this morning 110/60. Arrangements are being made for patient to go to [facility] rehab once cleared by cardiology. INR today 2.9. Objective - Vital Signs Vital signs: Vital Signs Temp 99.3 F 08/16/18 07:44 Pulse 134 H 08/16/18 12:00 Resp 16 08/16/18 12:00 BP 111/65 08/16/18 09:39 Pulse Ox 94 L 08/16/18 07:44 Intake & Output 08/15/18 08/16/18 08/16/18 18:59 06:59 18:59 Intake Total 920 Output Total 300 600 Balance 620 -600 Weight 44.6 kg Intake: Oral 920 Output: Urine 300 600 Other: Voiding Method Indwelling Catheter Indwelling Catheter Indwelling Catheter # Bowel Movements 0 - Exam PHYSICAL EXAMINATION: GENERAL: 87-year-old female in no acute distress at the time of my examination HEENT: Head is atraumatic, normocephalic. Pupils equal, round. Sclera anicteric. Conjunctiva are clear. Mucous membranes of the mouth are moist. Neck is supple. There is no elevated jugular venous pressure. No carotid bruit is heard. HEART EXAMINATION: Heart S1 and S2 a systolic murmur is heard. CHEST EXAMINATION: Lungs are clear to auscultation and precussion. No chest wall tenderness is noted on palpation or with deep breathing. ABDOMEN: Soft, nontender. Bowel sounds are heard. No organomegaly noted. EXTREMITIES: 2+ peripheral pulses with no evidence of peripheral edema and no calf tenderness noted. Dressing to right hip. NEUROLOGIC patient is awake, alert and oriented 3 . . - Labs CBC & Chem 7: 08/16/18 05:32 08/16/18 05:32 Labs: Abnormal Lab Results - Last 24 Hours (Table) 08/16/18 08/16/18 08/16/18 Range/Units 05:32 05:32 05:32 RBC 2.93 L (3.80-5.40) m/uL Hgb 8.0 L (11.4-16.0) gm/dL Hct 25.3 L (34.0-46.0) % RDW 20.1 H (11.5-15.5) % PT 25.8 H (9.0-12.0) sec INR 2.9 H (<1.2) Sodium 133 L (137-145) mmol/L Chloride 108 H (98-107) mmol/L Carbon Dioxide 21 L (22-30) mmol/L BUN 29 H (7-17) mg/dL Glucose 101 H (74-99) mg/dL Calcium 7.9 L (8.4-10.2) mg/dL Assessment and Plan Plan: Assessment and plan #1 fall with evidence of right hip fracture status post right hip arthroplasty #2 paroxysmal atrial fibrillation, on Coumadin for anticoagulation. INR this morning 2.9. . #2 hyperlipidemia #3 hypertension #4 history of nicotine dependence #5 sick sinus syndrome with prior pacemaker implantation #6 chronic iron deficiency anemia Plan Patient will be given a bolus of IV Cardizem started on a Cardizem drip, dose of beta derek increased today. If her heart rate remained stable patient may be able to transfer to rehab tomorrow. DNP note has been reviewed, I agree with a documented findings and plan of care. Patient was seen and examined.
[2018-08-16] MEDS: FERROUS SULFATE 325 MG TAB PO SCH (12:39)
--- NOTE | 2018-08-16 13:34 | P.PN ---
Subjective Progress Note Date: 08/16/18 87 years old female patient of Dr. Morgan, Dr. Bryant was seen him once or twice in the clinic with past medical history of atrial fibrillation status post pacemaker on Coumadin, hypertension, history of chronic iron deficiency anemia with the borderline hyperglycemia, hypercholesterolemia, diastolic heart failur, TIA 15 years ago presents after a fall this morning when she was coming off the bed. Patient complains of dizziness but denies any palpitation, chest pain, or shortness of breath. She denies any previous falls. Is independent lives by herself. She was seen by Dr. Morgan in April for shortness of breath and was started on low dose of Lasix for concern of diastolic heart failure. Patient also seen by Dr. Bryant in June and gets echocardiogram every 6 month. Patient does have history of osteoporosis according to the patient no documented DEXA scan in chart. X-ray of the hip suggest a subcapital right hip non-communicated [id number] impaction fracture. Labs done in the ER suggested hemoglobin of 11.7, creatinine 1.03 glucose borderline high 114. No coagulating factors ordered. PT/INR ordered. Internal medicine team consulted for preop clearance. Patient denies any chest pain or shortness of breath. She is independent and ambulates without the use of cane or walker. 08/11: Patient denies any new complaints. Pain is better and seems to be controlled at this time. Hernández catheter is in place. Patient did NOT receive vitamin K yesterday. INR is at 3.1 and vitamin K will be given this afternoon. Blood pressure is on the low side. Patient is tolerating. Patient had episode of A. fib RVR at 147. Cardiology consult requested. Later it was found the patient had difficulty swallowing verapamil and hit it in her napkin was embarrassed to say anything about it. A new dose of verapamil to be given now. 08/12: Patient is gone for surgery. She is on IV Cardizem. Echocardiogram reveals EF of 55-60%, LAD severely dilated greater than 40, severe mitral regurgitation, moderate tricuspid regurgitation, moderate pulmonary hypertension , moderate aortic regurgitation. 08/13: Patient underwent right hip hemiarthroplasty yesterday with Dr. Reed. Patient is to be weightbearing as tolerated on the right lower extremity. Coumadin for anticoagulation which pharmacy is dosing. INR is 1.2. Patient had A. fib with RVR during the night running in the 120s. Radiology is planning to give additional dose of Lopressor, and discontinue Cardizem drip and continue beta derek. TSH 2.260. Hernández catheter in place draining dark urine. Patient is encouraged to increase fluid intake. Urine culture finalized with no growth. She is doing incentive spirometry and only 500 and infrequently. Patient encouraged to do this every hour. Hemoglobin 11, pulse ox 90% on 2 L, anticipate discharge to rehab on Tuesday 08/14: Patient is seen this morning in her room. Her heart rate has been controlled and blood pressure is on the lower side for which Lopressor will be decreased to 12.5 g twice daily. Hemoglobin is at 8.5. INR 1.5. BUN 33 and creatinine 1.61 and IV fluids will be increased 100 mL per hour for 24 hours and then plan to decrease to 75. We will reassess tomorrow. Iron will be resumed at 325 mg daily and iron studies ordered. Plan is for discharge to ECF on Wednesday 08/15: BUN 35 and creatinine 1.22. IV fluids will be continued for another 24 hours but at 75 mL per hour. We will start Ferrlecit treatment one today and one tomorrow. INR is therapeutic at 2.4. Patient had tachycardia last night and was started on amiodarone 400 mg twice daily. We will increase Lopressor to 12.5 during the day and 25 at bedtime. Patient denies having any chest pain or chest pressure. No palpitations. She denies having any weakness. Hernández catheter remains in place which anticipate this will be discontinued today as she increases activity with PT. Patient is scheduled for rehab for tomorrow. 08/16: Patient was prepared for discharge to rehab today by orthopedics but she went into A. fib with RVR running 100 3250 bpm was started again on a Cardizem drip with Cardizem bolus. She is currently on amiodarone at 400 mg twice daily , Lopressor 25 mg twice daily and received an additional dose of 12.5 mg this morning. INR is therapeutic at 2.9. Patient denies having any chest pain or pressure, no dizziness or palpitations. Patient remains with Hernández catheter in place anticipate that this will be discontinued today once patient is able to purchase weight more with physical therapy. Discharge for today held. Review Of Systems: Constitutional: No fever, no chills, no night sweats. No weight change. No weakness, fatigue or lethargy. No daytime sleepiness. EENT: No headache. No blurred vision or double vision, no loss of vision. No nasal drainage or congestion. No epistaxis. No sore throat. Lungs: No shortness of breath, cough, no sputum production. No wheezing. Cardiovascular: No chest pain, no lower extremity edema. No palpitations. No paroxysmal nocturnal dyspnea. No orthopnea. No lightheadedness or dizziness. No syncopal episodes. Abdominal: No abdominal pain. No nausea, vomiting. No diarrhea. No constipation. No bloody or tarry stools.. No loss of appetite. Genitourinary: No dysuria, increased frequency, urgency. No urinary retention. Hernández in place Musculoskeletal: No myalgias. No muscle weakness, + gait dysfunction, no frequent falls. No back pain. No neck pain.+ Right hip pain controlled Integumentary: + wounds, no lesions. No rash or pruritus. No unusual bruising. Neurologic: No aphasia. No facial droop. No change in mentation. No head injury. No headache. No paralysis. No paresthesia. Psychiatric: No depression. No anxiety. No mood swings. Endocrine: No abnormal blood sugars. No weight change. No excessive sweating or thirst. No cold intolerance. No weight change. Objective - Vital Signs Vital signs: Vital Signs Temp 99.3 F 08/16/18 07:44 Pulse 134 H 08/16/18 07:44 Resp 16 08/16/18 07:44 BP 111/65 08/16/18 09:39 Pulse Ox 94 L 08/16/18 07:44 Intake & Output 08/15/18 08/16/18 08/16/18 18:59 06:59 18:59 Intake Total 920 Output Total 300 600 Balance 620 -600 Weight 44.6 kg Intake: Oral 920 Output: Urine 300 600 Other: Voiding Method Indwelling Catheter Indwelling Catheter # Bowel Movements 0 - Exam General appearance: no acute distress, thin, patient sitting up in bed and appears comfortable, - EENT Eyes: anicteric sclerae, PERRLA, normal appearance ENT: hearing grossly normal - Neck Neck: no lymphadenopathy, normal ROM, no other, no rigidity, no stridor, no thyromegaly - Respiratory Respiratory: bilateral: CTA, negative: diminished, dullness, rales, rhonchi - Cardiovascular Rhythm: irregular Heart sounds: normal: S1, S2, tachycardic Abnormal Heart Sounds: no systolic murmur, 2+ diastolic murmur, no rub, no S3 Gallop, no S4 Gallop - Gastrointestinal General gastrointestinal: normal bowel sounds, soft - Integumentary Integumentary: no rash - Neurologic Neurologic: CNII-XII intact - Musculoskeletal Musculoskeletal: Dressing to the right hip, no breakthrough bleeding or drainage - Psychiatric Psychiatric: A&O x's 3, appropriate affect - Labs CBC & Chem 7: 08/16/18 05:32 08/16/18 05:32 Labs: Abnormal Lab Results - Last 24 Hours (Table) 08/16/18 08/16/18 08/16/18 Range/Units 05:32 05:32 05:32 RBC 2.93 L (3.80-5.40) m/uL Hgb 8.0 L (11.4-16.0) gm/dL Hct 25.3 L (34.0-46.0) % RDW 20.1 H (11.5-15.5) % PT 25.8 H (9.0-12.0) sec INR 2.9 H (<1.2) Sodium 133 L (137-145) mmol/L Chloride 108 H (98-107) mmol/L Carbon Dioxide 21 L (22-30) mmol/L BUN 29 H (7-17) mg/dL Glucose 101 H (74-99) mg/dL Calcium 7.9 L (8.4-10.2) mg/dL Assessment and Plan Plan: 1. Right subcapital fracture status post right hip hemiarthroplasty completed on 08/12. Continue pain management per orthopedics, PT, OT. Coumadin for DVT prophylaxis, dosed by pharmacy. Incentive spirometry to reduce incidence of atelectasis and hospital-acquired pneumonia. 2. Atrial fibrillation with RVR with underlying paroxysmal atrial fibrillation. Coumadin is therapeutic. The patient is currently on amiodarone 400 mg twice daily Lopressor 25 mg twice daily. Patient is status post Cardizem bolus and Cardizem drip and placed. 3. History of sick sinus syndrome with prior pacemaker implantation. 4. History of shortness of breath on exertion with concern for diastolic heart failure on echocardiogram. Recommend outpatient PFTs to assess for COPD. 5. GI prophylaxis. 6. DVT prophylaxis. 7. Acute kidney injury with chronic kidney disease stage III. IV fluids are 75cc per hour for the next 24 hours. Re-evaluate lab work in the morning. 8. Anemia secondary to a combination of acute blood loss and acute kidney injury. Ferrlecit ordered for today and tomorrow. CODE STATUS: DO NOT RESUSCITATE. Discharge plan: Subacute rehab at [facility] Impression and plan of care have been directed as dictated by the signing physician. Raven Shaw nurse practitioner acting as scribe for signing physician.
[2018-08-16] MEDS ORDERED: WARFARIN 1.25 MG TAB PO ONE (18:00)
[2018-08-16] MEDS: ATORVASTATIN 20 MG TAB PO SCH (21:06)
[2018-08-16] MEDS: SENNOSIDES-DOCUSATE SODIUM 1 EACH TAB PO SCH (21:07)
[2018-08-17] MEDS: DILTIAZEM 50 MG in SODIUM CHLORIDE 0.9% 40 ML IV SCH ×5 (03:23→19:46)
[2018-08-17] MEDS: MAGNESIUM HYDROXIDE 2,400 MG/10 ML CUP PO PRN (09:06)
[2018-08-17] MEDS: AMIODARONE 200 MG TAB PO SCH ×2 (09:06→19:46)
[2018-08-17] MEDS: PARoxetine 10 MG TAB PO SCH (09:06)
[2018-08-17] MEDS: METOPROLOL TARTRATE 25 MG TAB PO SCH ×3 (09:06→19:46)
[2018-08-17 11:48] LABS: INR 3.4 (<1.2); Prothrombin Time 30.1 sec (9.0-12.0)
--- NOTE | 2018-08-17 12:12 | P.PN ---
Subjective Progress Note Date: 08/17/18 87 years old female patient of Dr. Morgan, Dr. Bryant was seen him once or twice in the clinic with past medical history of atrial fibrillation status post pacemaker on Coumadin, hypertension, history of chronic iron deficiency anemia with the borderline hyperglycemia, hypercholesterolemia, diastolic heart failur, TIA 15 years ago presents after a fall this morning when she was coming off the bed. Patient complains of dizziness but denies any palpitation, chest pain, or shortness of breath. She denies any previous falls. Is independent lives by herself. She was seen by Dr. Morgan in April for shortness of breath and was started on low dose of Lasix for concern of diastolic heart failure. Patient also seen by Dr. Bryant in June and gets echocardiogram every 6 month. Patient does have history of osteoporosis according to the patient no documented DEXA scan in chart. X-ray of the hip suggest a subcapital right hip non-communicated [id number] impaction fracture. Labs done in the ER suggested hemoglobin of 11.7, creatinine 1.03 glucose borderline high 114. No coagulating factors ordered. PT/INR ordered. Internal medicine team consulted for preop clearance. Patient denies any chest pain or shortness of breath. She is independent and ambulates without the use of cane or walker. 08/11: Patient denies any new complaints. Pain is better and seems to be controlled at this time. Hernández catheter is in place. Patient did NOT receive vitamin K yesterday. INR is at 3.1 and vitamin K will be given this afternoon. Blood pressure is on the low side. Patient is tolerating. Patient had episode of A. fib RVR at 147. Cardiology consult requested. Later it was found the patient had difficulty swallowing verapamil and hit it in her napkin was embarrassed to say anything about it. A new dose of verapamil to be given now. 08/12: Patient is gone for surgery. She is on IV Cardizem. Echocardiogram reveals EF of 55-60%, LAD severely dilated greater than 40, severe mitral regurgitation, moderate tricuspid regurgitation, moderate pulmonary hypertension , moderate aortic regurgitation. 08/13: Patient underwent right hip hemiarthroplasty yesterday with Dr. Reed. Patient is to be weightbearing as tolerated on the right lower extremity. Coumadin for anticoagulation which pharmacy is dosing. INR is 1.2. Patient had A. fib with RVR during the night running in the 120s. Radiology is planning to give additional dose of Lopressor, and discontinue Cardizem drip and continue beta derek. TSH 2.260. Hernández catheter in place draining dark urine. Patient is encouraged to increase fluid intake. Urine culture finalized with no growth. She is doing incentive spirometry and only 500 and infrequently. Patient encouraged to do this every hour. Hemoglobin 11, pulse ox 90% on 2 L, anticipate discharge to rehab on Tuesday 08/14: Patient is seen this morning in her room. Her heart rate has been controlled and blood pressure is on the lower side for which Lopressor will be decreased to 12.5 g twice daily. Hemoglobin is at 8.5. INR 1.5. BUN 33 and creatinine 1.61 and IV fluids will be increased 100 mL per hour for 24 hours and then plan to decrease to 75. We will reassess tomorrow. Iron will be resumed at 325 mg daily and iron studies ordered. Plan is for discharge to ECF on Wednesday 08/15: BUN 35 and creatinine 1.22. IV fluids will be continued for another 24 hours but at 75 mL per hour. We will start Ferrlecit treatment one today and one tomorrow. INR is therapeutic at 2.4. Patient had tachycardia last night and was started on amiodarone 400 mg twice daily. We will increase Lopressor to 12.5 during the day and 25 at bedtime. Patient denies having any chest pain or chest pressure. No palpitations. She denies having any weakness. Hernández catheter remains in place which anticipate this will be discontinued today as she increases activity with PT. Patient is scheduled for rehab for tomorrow. 08/16: Patient was prepared for discharge to rehab today by orthopedics but she went into A. fib with RVR running 100 3250 bpm was started again on a Cardizem drip with Cardizem bolus. She is currently on amiodarone at 400 mg twice daily , Lopressor 25 mg twice daily and received an additional dose of 12.5 mg this morning. INR is therapeutic at 2.9. Patient denies having any chest pain or pressure, no dizziness or palpitations. Patient remains with Hernández catheter in place anticipate that this will be discontinued today once patient is able to purchase weight more with physical therapy. Discharge for today held. 08/17: Patient is currently on Cardizem drip but heart rate is running in the 1 teens, atrial fibrillation. She is also on amiodarone 400 mg twice daily orally and Lopressor 25 mg twice daily. Patient denies any new complaints. Her Hernández catheter is in place which will have removed today. She was up to the commode this morning to have a bowel movement. Review Of Systems: Constitutional: No fever, no chills, no night sweats. No weight change. + Generalized weakness, fatigue or lethargy. No daytime sleepiness. EENT: No headache. No blurred vision or double vision, no loss of vision. No nasal drainage or congestion. No epistaxis. No sore throat. Lungs: No shortness of breath, cough, no sputum production. No wheezing. Cardiovascular: No chest pain, no lower extremity edema. No palpitations. No paroxysmal nocturnal dyspnea. No orthopnea. No lightheadedness or dizziness. No syncopal episodes. Abdominal: No abdominal pain. No nausea, vomiting. No diarrhea. No constipation. No bloody or tarry stools.. No loss of appetite. Genitourinary: No dysuria, increased frequency, urgency. No urinary retention. Hernández in place Musculoskeletal: No myalgias. No muscle weakness, + gait dysfunction, no frequent falls. + Right hip pain controlled Integumentary: + wounds, no lesions. No rash or pruritus. No unusual bruising. Neurologic: No aphasia. No facial droop. No change in mentation. No head injury. No headache. No paralysis. No paresthesia. Psychiatric: No depression. No anxiety. No mood swings. Endocrine: No abnormal blood sugars. No weight change. No excessive sweating or thirst. No cold intolerance. No weight change. Objective - Vital Signs Vital signs: Vital Signs Temp 98.9 F 08/17/18 07:40 Pulse 115 H 08/17/18 07:40 Resp 14 08/17/18 07:40 BP 100/60 08/17/18 07:40 Pulse Ox 95 08/17/18 07:40 Intake & Output 08/16/18 08/17/18 08/17/18 18:59 06:59 18:59 Intake Total 502.5 50 Output Total 500 200 Balance 2.5 -150 Weight 58 kg Intake: Intake, IV Titration 92.5 50 Amount Diltiazem 50 mg In Sodium 92.5 50 Chloride 0.9% 40 ml @ 10 MG/HR 10 mls/hr IV .Q5H [facility] Rx#:[id number] Oral 410 Output: Urine 500 200 Other: Voiding Method Indwelling Catheter Indwelling Catheter - Exam General appearance: no acute distress, thin, patient sitting up in bed and appears comfortable, - EENT Eyes: anicteric sclerae, PERRLA, normal appearance ENT: hearing grossly normal - Neck Neck: no lymphadenopathy, normal ROM, no other, no rigidity, no stridor, no thyromegaly - Respiratory Respiratory: bilateral: CTA, negative: diminished, dullness, rales, rhonchi - Cardiovascular Rhythm: irregular Heart sounds: normal: S1, S2, tachycardic Abnormal Heart Sounds: no systolic murmur, 2+ diastolic murmur, no rub, no S3 Gallop, no S4 Gallop - Gastrointestinal General gastrointestinal: normal bowel sounds, soft, Hernández draining clear hayley urine - Integumentary Integumentary: no rash - Neurologic Neurologic: CNII-XII intact - Musculoskeletal Musculoskeletal: Dressing to the right hip, no breakthrough bleeding or drainage - Psychiatric Psychiatric: A&O x's 3, appropriate affect - Labs CBC & Chem 7: 08/16/18 05:32 08/16/18 05:32 Assessment and Plan Plan: 1. Right subcapital fracture status post right hip hemiarthroplasty completed on 08/12. Continue pain management per orthopedics, PT, OT. Coumadin for DVT prophylaxis, dosed by pharmacy. Incentive spirometry to reduce incidence of atelectasis and hospital-acquired pneumonia. 2. Atrial fibrillation with RVR with underlying paroxysmal atrial fibrillation. Coumadin is therapeutic. The patient is currently on amiodarone 400 mg twice daily Lopressor 25 mg twice daily and Cardizem drip. Patient is status post Cardizem bolus yesterday. 3. History of sick sinus syndrome with prior pacemaker implantation. 4. History of shortness of breath on exertion with concern for diastolic heart failure on echocardiogram. Recommend outpatient PFTs to assess for COPD. 5. GI prophylaxis. 6. DVT prophylaxis. 7. Acute kidney injury with chronic kidney disease stage III. IV fluids completed. Re-evaluate lab work in the morning. 8. Anemia secondary to a combination of acute blood loss and acute kidney injury. Carmen completed 2 doses. CODE STATUS: DO NOT RESUSCITATE. Discharge plan: Subacute rehab at [facility] Impression and plan of care have been directed as dictated by the signing physician. Raven Shaw nurse practitioner acting as scribe for signing physician.
[2018-08-17] MEDS: FERROUS SULFATE 325 MG TAB PO SCH (12:33)
--- NOTE | 2018-08-17 12:59 | P.PN ---
Subjective Progress Note Date: 08/17/18 This is a pleasant 87-year-old female who follows regularly with Dr. Bryant in the office. She has known history of paroxysmal atrial fibrillation, and is on Coumadin for anticoagulation. History also of hyperlipidemia, hypertension, family history of premature coronary artery disease, prior nicotine dependence, sick sinus syndrome with prior pacemaker implantation she presented to the hospital on this occasion after experiencing a fall at home. She states that she was getting up out of her bed, felt mildly dizzy and fell onto the floor. She denies any syncope. She called out to her daughter, and was brought to the hospital for further evaluation. Right hip and pelvis x-ray revealed subcapital right hip noncomminuted impaction fracture. Chest x-ray shows cardiomegaly, scoliosis, possible pulmonary arterial hypertension. Patient was initially on Cardizem drip and started on amiodarone 400 mg by mouth twice a day, reverted to sinus rhythm and subsequently went back into atrial fibrillation with rapid ventricular response. Yesterday morning heart rate was in the 130s to 140s IV Cardizem was again initiated which is currently running at 10 mg an hour. She continues to be on amiodarone 400 mg by mouth twice a day and metoprolol titrate 25 mg by mouth twice a day. Heart rate remains fairly well controlled on this around 80s to 100s. Objective - Vital Signs Vital signs: Vital Signs Temp 98.9 F 08/17/18 07:40 Pulse 103 H 08/17/18 12:00 Resp 16 08/17/18 12:00 BP 97/60 08/17/18 11:18 Pulse Ox 97 08/17/18 11:18 Intake & Output 08/16/18 08/17/18 08/17/18 18:59 06:59 18:59 Intake Total 502.5 50 290 Output Total 500 200 Balance 2.5 -150 290 Weight 58 kg Intake: Intake, IV Titration 92.5 50 50 Amount Diltiazem 50 mg In Sodium 92.5 50 50 Chloride 0.9% 40 ml @ 10 MG/HR 10 mls/hr IV .Q5H [facility] Rx#:[id number] Oral 410 240 Output: Urine 500 200 Other: Voiding Method Indwelling Catheter Indwelling Catheter # Bowel Movements 1 - Exam PHYSICAL EXAMINATION: GENERAL: 87-year-old female in no acute distress at the time of my examination HEENT: Head is atraumatic, normocephalic. Pupils equal, round. Sclera anicteric. Conjunctiva are clear. Mucous membranes of the mouth are moist. Neck is supple. There is no elevated jugular venous pressure. No carotid bruit is heard. HEART EXAMINATION: Heart irregularly irregular S1 and S2 a systolic murmur is heard. CHEST EXAMINATION: Lungs are clear to auscultation and precussion. No chest wall tenderness is noted on palpation or with deep breathing. ABDOMEN: Soft, nontender. Bowel sounds are heard. No organomegaly noted. EXTREMITIES: 2+ peripheral pulses with no evidence of peripheral edema and no calf tenderness noted. Dressing to right hip. NEUROLOGIC patient is awake, alert and oriented 3 with short-term memory loss noted . - Labs CBC & Chem 7: 08/16/18 05:32 08/16/18 05:32 Labs: Abnormal Lab Results - Last 24 Hours (Table) 08/17/18 Range/Units 10:48 PT 30.1 H (9.0-12.0) sec INR 3.4 H (<1.2) Assessment and Plan Assessment: #1 fall with evidence of right hip fracture status post right hip arthroplasty #2 paroxysmal atrial fibrillation, on Coumadin for anticoagulation. INR this morning 2.9. Heart rate not well controlled . #2 hyperlipidemia #3 hypertension #4 history of nicotine dependence #5 sick sinus syndrome with prior pacemaker implantation #6 chronic iron deficiency anemia Plan: From cardiology perspective, we will increase beta derek dose to 25 mg by mouth 3 times a day. Hopefully we can wean Cardizem drip later today. We would recommend keeping the patient for at least another 24 hours to ensure adequate heart rate control. We will continue to follow the patient and provide further recommendations accordingly. TRAINING EXECUTIVE note has been reviewed, I agree with a documented findings and plan of care. Patient was seen and examined.
[2018-08-17] MEDS ORDERED: WARFARIN 0.5 MG TAB PO ONE (18:00)
[2018-08-17] MEDS: SENNOSIDES-DOCUSATE SODIUM 1 EACH TAB PO SCH (19:46)
[2018-08-17] MEDS: ATORVASTATIN 20 MG TAB PO SCH (19:46)
[2018-08-18] MEDS: DILTIAZEM 50 MG in SODIUM CHLORIDE 0.9% 40 ML IV SCH ×3 (02:37→11:02)
[2018-08-18 06:29] LABS: Anisocytosis Moderate; Basophils % (A) 0 %; Eosinophils # (A) 0.1 k/uL (0-0.7); Eosinophils % (A) 1 %; Hypochromasia Slight; Lymphocytes % (A) 14 %; MCH 26.5 pg (25.0-35.0); MCHC 30.8 g/dL (31.0-37.0); MCV 86.1 fL (80.0-100.0); Mean Platelet Volume 8.2; Microcytosis Slight; Monocytes # (A) 0.4 k/uL (0-1.0); Monocytes % (A) 6 %; Neutrophils # (A) 5.2 k/uL (1.3-7.7); Neutrophils % (A) 76 %; Platelet Count 271 k/uL (150-450); RBC 3.02 m/uL (3.80-5.40); RDW 20.6 % (11.5-15.5); WBC 6.8 k/uL (3.8-10.6)
[2018-08-18 06:35] LABS: Prothrombin Time 35.8 sec (9.0-12.0)
[2018-08-18 06:43] LABS: Potassium 4.6 mmol/L (3.5-5.1)
[2018-08-18] MEDS: PARoxetine 10 MG TAB PO SCH (07:57)
[2018-08-18] MEDS: METOPROLOL TARTRATE 25 MG TAB PO SCH (07:57)
[2018-08-18] MEDS: AMIODARONE 200 MG TAB PO SCH ×2 (07:57→21:11)
--- NOTE | 2018-08-18 09:40 | P.PN ---
Subjective Progress Note Date: 08/18/18 This is an 87-year-old female who is status post right hip hemiarthroplasty. This is postoperative day #6. Patient states that her pain is well-controlled. Patient denies any new complaints today. Patient denies any fever/chills, chest pain, shortness breath, abdominal pain, numbness, weakness or tingling. Objective - Vital Signs Vital signs: Vital Signs Temp 98.0 F 08/18/18 07:27 Pulse 103 H 08/18/18 07:35 Resp 16 08/18/18 07:27 BP 123/71 08/18/18 07:27 Pulse Ox 95 08/18/18 07:27 Intake & Output 08/17/18 08/18/18 08/18/18 18:59 06:59 18:59 Intake Total 670 100 Output Total 900 1200 Balance -230 100 -1200 Weight 54.5 kg Intake: Intake, IV Titration 100 100 Amount Diltiazem 50 mg In Sodium 100 100 Chloride 0.9% 40 ml @ 10 MG/HR 10 mls/hr IV .Q5H [facility] Rx#:[id number] Oral 570 Output: Urine 500 1200 Straight 400 Post Void Residual 400 Other: # Voids 1 # Bowel Movements 1 1 - Exam On exam patient is alert and oriented resting comfortably in bed in no acute distress. Dressing is clean, dry and intact. Minimal soft tissue swelling. No erythema. Abductor pillow in place. Calf is soft and nontender to palpation. Sensation intact. Full foot and ankle motion of the right lower extremity. Neurovascular status and circulatory status are intact. - Labs CBC & Chem 7: 08/18/18 06:08 08/18/18 06:08 Labs: Abnormal Lab Results - Last 24 Hours (Table) 08/17/18 08/18/18 08/18/18 Range/Units 10:48 06:08 06:08 RBC 3.02 L (3.80-5.40) m/uL Hgb 8.0 L (11.4-16.0) gm/dL Hct 26.0 L (34.0-46.0) % MCHC 30.8 L (31.0-37.0) g/dL RDW 20.6 H (11.5-15.5) % PT 30.1 H (9.0-12.0) sec INR 3.4 H (<1.2) Sodium 134 L (137-145) mmol/L BUN 24 H (7-17) mg/dL Glucose 106 H (74-99) mg/dL Calcium 8.0 L (8.4-10.2) mg/dL 08/18/18 Range/Units 06:08 RBC (3.80-5.40) m/uL Hgb (11.4-16.0) gm/dL Hct (34.0-46.0) % MCHC (31.0-37.0) g/dL RDW (11.5-15.5) % PT 35.8 H (9.0-12.0) sec INR 4.0 H (<1.2) Sodium (137-145) mmol/L BUN (7-17) mg/dL Glucose (74-99) mg/dL Calcium (8.4-10.2) mg/dL Assessment and Plan Assessment: Atrial fibrillation Iron deficiency anemia Exertional shortness of breath. History of breast cancer. (1) Subcapital fracture of right hip Current Visit: Yes Status: Acute Code(s): S72.011A - UNSP INTRACAPSULAR FRACTURE OF RIGHT FEMUR, INIT FOR CLOS FX SNOMED Code(s): 405031559 (2) Closed right hip fracture Current Visit: Yes Status: Acute Code(s): S72.001A - FRACTURE OF UNSP PART OF NECK OF RIGHT FEMUR, INIT SNOMED Code(s): 749610266 Plan: 1. Patient is to be weight-bearing as tolerated to the right lower extremity. 2. Rest and ice the right hip. 3. Continue routine postoperative care and pain control. 4. Continue hip dislocation precautions with abductor pillow. 5. Coumadin for anticoagulation per internal medicine. 6. Appreciate input from medicine. 7. Anticipate discharge to rehab when cleared medically.
[2018-08-18 11:39] VITALS: BMI 21.9
[2018-08-18] MEDS ORDERED: METOPROLOL TARTRATE 25 MG TAB PO STA (11:54)
--- NOTE | 2018-08-18 11:57 | P.PN ---
Subjective Progress Note Date: 08/18/18 This is a pleasant 87-year-old female who follows regularly with Dr. Bryant in the office. She has known history of paroxysmal atrial fibrillation, and is on Coumadin for anticoagulation. History also of hyperlipidemia, hypertension, family history of premature coronary artery disease, prior nicotine dependence, sick sinus syndrome with prior pacemaker implantation she presented to the hospital on this occasion after experiencing a fall at home. She states that she was getting up out of her bed, felt mildly dizzy and fell onto the floor. She denies any syncope. She called out to her daughter, and was brought to the hospital for further evaluation. Right hip and pelvis x-ray revealed subcapital right hip noncomminuted impaction fracture. Chest x-ray shows cardiomegaly, scoliosis, possible pulmonary arterial hypertension. Patient was initially on Cardizem drip and started on amiodarone 400 mg by mouth twice a day, reverted to sinus rhythm and subsequently went back into atrial fibrillation with rapid ventricular response. Yesterday morning heart rate was in the 130s to 140s IV Cardizem was again initiated which is currently running at 10 mg an hour. She continues to be on amiodarone 400 mg by mouth twice a day and metoprolol titrate 25 mg by mouth increased to 3 times a day yesterday. Heart rate remains fairly well controlled on this around 80s to 100s. Objective - Vital Signs Vital signs: Vital Signs Temp 98.0 F 08/18/18 07:27 Pulse 106 H 08/18/18 11:24 Resp 18 08/18/18 11:19 BP 106/62 08/18/18 11:19 Pulse Ox 92 L 08/18/18 11:19 Intake & Output 08/17/18 08/18/18 08/18/18 18:59 06:59 18:59 Intake Total 670 100 50 Output Total 900 1200 Balance -230 100 -1150 Weight 54.5 kg 54.5 kg Intake: Intake, IV Titration 100 100 50 Amount Diltiazem 50 mg In Sodium 100 100 50 Chloride 0.9% 40 ml @ 10 MG/HR 10 mls/hr IV .Q5H [facility] Rx#:[id number] Oral 570 Output: Urine 500 1200 Straight 400 Post Void Residual 400 Other: # Voids 1 # Bowel Movements 1 1 - Exam PHYSICAL EXAMINATION: GENERAL: 87-year-old female in no acute distress at the time of my examination HEENT: Head is atraumatic, normocephalic. Pupils equal, round. Sclera anicteric. Conjunctiva are clear. Mucous membranes of the mouth are moist. Neck is supple. There is no elevated jugular venous pressure. No carotid bruit is heard. HEART EXAMINATION: Heart irregularly irregular S1 and S2 a systolic murmur is heard. CHEST EXAMINATION: Lungs are clear to auscultation and precussion. No chest wall tenderness is noted on palpation or with deep breathing. ABDOMEN: Soft, nontender. Bowel sounds are heard. No organomegaly noted. EXTREMITIES: 2+ peripheral pulses with no evidence of peripheral edema and no calf tenderness noted. Dressing to right hip. NEUROLOGIC patient is awake, alert and oriented 3 with short-term memory loss noted . - Labs CBC & Chem 7: 08/18/18 06:08 08/18/18 06:08 Labs: Abnormal Lab Results - Last 24 Hours (Table) 08/18/18 08/18/18 08/18/18 Range/Units 06:08 06:08 06:08 RBC 3.02 L (3.80-5.40) m/uL Hgb 8.0 L (11.4-16.0) gm/dL Hct 26.0 L (34.0-46.0) % MCHC 30.8 L (31.0-37.0) g/dL RDW 20.6 H (11.5-15.5) % PT 35.8 H (9.0-12.0) sec INR 4.0 H (<1.2) Sodium 134 L (137-145) mmol/L BUN 24 H (7-17) mg/dL Glucose 106 H (74-99) mg/dL Calcium 8.0 L (8.4-10.2) mg/dL Assessment and Plan Assessment: #1 fall with evidence of right hip fracture status post right hip arthroplasty #2 paroxysmal atrial fibrillation, on Coumadin for anticoagulation. INR this morning 4.0. #2 hyperlipidemia #3 hypertension #4 history of nicotine dependence #5 sick sinus syndrome with prior pacemaker implantation #6 chronic iron deficiency anemia Plan: From cardiology perspective, we will increase beta derek dose to 50 mg by mouth twice a day with additional 25 mg now. We will also add Cardizem 30 mg by mouth 3 times a day. Stop IV Cardizem. Hopefully the patient's heart rate will be well enough controlled that she can go to a rehab facility tomorrow. We will follow the patient prepped further recommendations accordingly. [employer] note has been reviewed, I agree with a documented findings and plan of care. Patient was seen and examined.
[2018-08-18] MEDS: DILTIAZEM ORAL 30 MG TAB PO SCH ×3 (12:45→21:15)
[2018-08-18] MEDS: FERROUS SULFATE 325 MG TAB PO SCH (12:46)
[2018-08-18] MEDS: SODIUM FERRIC GLUCONAT-SUCROSE 125 MG in SODIUM CHLORIDE 0.9% 100 ML IVPB SCH (13:03)
[2018-08-18] MEDS ORDERED: SODIUM FERRIC GLUCONAT-SUCROSE 125 MG in SODIUM CHLORIDE 0.9% 100 ML IVPB ONE (14:00)
[2018-08-18 15:14] VITALS: RESP 16
[2018-08-18] MEDS: HYDROcodone/APAP 5-325MG 1 EACH TAB PO PRN (15:21)
[2018-08-18] MEDS ORDERED: WARFARIN 0.5 MG TAB PO ONE (18:00)
[2018-08-18] MEDS: METOPROLOL TARTRATE 50 MG TAB PO SCH (21:11)
[2018-08-18] MEDS: SENNOSIDES-DOCUSATE SODIUM 1 EACH TAB PO SCH (21:11)
[2018-08-18] MEDS: ATORVASTATIN 20 MG TAB PO SCH (21:11)
[2018-08-19 06:26] LABS: INR 3.1 (<1.2); Prothrombin Time 28.1 sec (9.0-12.0)
--- NOTE | 2018-08-19 08:24 | P.PN ---
Subjective Progress Note Date: 08/19/18 This is an 87-year-old female who is status post right hip hemiarthroplasty. This is postoperative day #7. Patient states that her pain is controlled. Patient denies any new complaints today. Patient has been managed closely for atrial fibrillation by cardiology and is awaiting discharge to rehab when cleared medically. Patient denies any fever/chills, chest pain, shortness breath , abdominal pain, numbness, weakness or tingling. Objective - Vital Signs Vital signs: Vital Signs Temp 98.2 F 08/19/18 04:00 Pulse 79 08/19/18 04:00 Resp 16 08/19/18 04:00 BP 110/66 08/19/18 04:00 Pulse Ox 98 08/19/18 04:00 Intake & Output 08/18/18 08/19/18 08/19/18 18:59 06:59 18:59 Intake Total 230 237 Output Total 800 0 Balance -570 237 0 Weight 54.5 kg 57 kg Intake: Intake, IV Titration 50 Amount Diltiazem 50 mg In Sodium 50 Chloride 0.9% 40 ml @ 10 MG/HR 10 mls/hr IV .Q5H [facility] Rx#:[id number] Oral 180 237 Output: Urine 800 0 Straight 400 Other: # Voids 1 # Bowel Movements 1 - Exam On exam patient is alert and oriented resting comfortably in bed in no acute distress. Dressing is clean, dry and intact. Minimal soft tissue swelling. No erythema. Abductor pillow in place. Calf is soft and nontender to palpation. Sensation intact. Full foot and ankle motion of the right lower extremity. Neurovascular status and circulatory status are intact. - Labs CBC & Chem 7: 08/18/18 06:08 08/18/18 06:08 Labs: Abnormal Lab Results - Last 24 Hours (Table) 08/19/18 Range/Units 05:30 PT 28.1 H (9.0-12.0) sec INR 3.1 H (<1.2) Assessment and Plan Assessment: Atrial fibrillation Iron deficiency anemia Exertional shortness of breath. History of breast cancer. (1) Subcapital fracture of right hip Current Visit: Yes Status: Acute Code(s): S72.011A - UNSP INTRACAPSULAR FRACTURE OF RIGHT FEMUR, INIT FOR CLOS FX SNOMED Code(s): 606385103 (2) Closed right hip fracture Current Visit: Yes Status: Acute Code(s): S72.001A - FRACTURE OF UNSP PART OF NECK OF RIGHT FEMUR, INIT SNOMED Code(s): 739552146 Plan: 1. Patient is to be weight-bearing as tolerated to the right lower extremity. 2. Rest and ice the right hip. 3. Continue routine postoperative care and pain control. 4. Continue hip dislocation precautions with abductor pillow. 5. Coumadin for anticoagulation per internal medicine. 6. Appreciate input from medicine. 7. Anticipate discharge to rehab when cleared medically.
[2018-08-19] MEDS ORDERED: FUROSEMIDE 10 MG/ML 2 ML VIAL IV ONE (10:19)
[2018-08-19] MEDS: METOPROLOL TARTRATE 50 MG TAB PO SCH (10:30)
[2018-08-19] MEDS: DILTIAZEM ORAL 30 MG TAB PO SCH ×2 (10:30→16:15)
[2018-08-19] MEDS: PARoxetine 10 MG TAB PO SCH (10:31)
[2018-08-19] MEDS: HYDROcodone/APAP 5-325MG 1 EACH TAB PO PRN ×2 (10:32→16:23)
--- NOTE | 2018-08-19 10:38 | PN ---
PROGRESS NOTE Mrs. Riddle is an 87-year-old female who had an ORIF. She is doing well this morning. She denies any symptoms of chest pain. Her breathing has been stable. She denies any dizziness or palpitation. She continues to be in atrial fibrillation with a better ventricular response. She has no symptoms of PND nor orthopnea. She is sitting up in the chair. She has a prior history of permanent pacemaker implantation. She continues to be at this time on amiodarone 400 mg twice a day, diltiazem 30 mg 3 times a day, metoprolol tartrate 50 mg twice a day, Coumadin. PHYSICAL EXAMINATION: Blood pressure 110/60 with the heart rate in the 70s. LUNGS: Clear. HEART: Irregular, irregular. S1, S2. No S3 with systolic murmur. No diastolic murmur. ABDOMEN: Soft, nontender. EXTREMITIES: +1 edema. IMPRESSION: 1. Paroxysmal atrial fibrillation with better ventricular response, anticoagulated. 2. Status post ORIF with a fall and fractured hip. 3. Status post permanent pacemaker implantation. RECOMMENDATION: I will give her 1 dose of IV Lasix. Otherwise, she is stable from the cardiac standpoint to be transferred to rehab. MMODL / IJN: [id number] /
[2018-08-19] MEDS ORDERED: AMIODARONE 200 MG TAB PO SCH (11:00)
[2018-08-19] MEDS: FERROUS SULFATE 325 MG TAB PO SCH (12:51)
[2018-08-19] MEDS: AMIODARONE 200 MG TAB PO SCH (12:53)
--- NOTE | 2018-08-19 14:38 | P.PN ---
Subjective Progress Note Date: 08/18/18 87 years old female patient of Dr. Morgan, Dr. Bryant was seen him once or twice in the clinic with past medical history of atrial fibrillation status post pacemaker on Coumadin, hypertension, history of chronic iron deficiency anemia with the borderline hyperglycemia, hypercholesterolemia, diastolic heart failur, TIA 15 years ago presents after a fall this morning when she was coming off the bed. Patient complains of dizziness but denies any palpitation, chest pain, or shortness of breath. She denies any previous falls. Is independent lives by herself. She was seen by Dr. Morgan in April for shortness of breath and was started on low dose of Lasix for concern of diastolic heart failure. Patient also seen by Dr. Bryant in June and gets echocardiogram every 6 month. Patient does have history of osteoporosis according to the patient no documented DEXA scan in chart. X-ray of the hip suggest a subcapital right hip non-communicated [id number] impaction fracture. Labs done in the ER suggested hemoglobin of 11.7, creatinine 1.03 glucose borderline high 114. No coagulating factors ordered. PT/INR ordered. Internal medicine team consulted for preop clearance. Patient denies any chest pain or shortness of breath. She is independent and ambulates without the use of cane or walker. 08/11: Patient denies any new complaints. Pain is better and seems to be controlled at this time. Hernández catheter is in place. Patient did NOT receive vitamin K yesterday. INR is at 3.1 and vitamin K will be given this afternoon. Blood pressure is on the low side. Patient is tolerating. Patient had episode of A. fib RVR at 147. Cardiology consult requested. Later it was found the patient had difficulty swallowing verapamil and hit it in her napkin was embarrassed to say anything about it. A new dose of verapamil to be given now. 08/12: Patient is gone for surgery. She is on IV Cardizem. Echocardiogram reveals EF of 55-60%, LAD severely dilated greater than 40, severe mitral regurgitation, moderate tricuspid regurgitation, moderate pulmonary hypertension , moderate aortic regurgitation. 08/13: Patient underwent right hip hemiarthroplasty yesterday with Dr. Reed. Patient is to be weightbearing as tolerated on the right lower extremity. Coumadin for anticoagulation which pharmacy is dosing. INR is 1.2. Patient had A. fib with RVR during the night running in the 120s. Radiology is planning to give additional dose of Lopressor, and discontinue Cardizem drip and continue beta derek. TSH 2.260. Hernández catheter in place draining dark urine. Patient is encouraged to increase fluid intake. Urine culture finalized with no growth. She is doing incentive spirometry and only 500 and infrequently. Patient encouraged to do this every hour. Hemoglobin 11, pulse ox 90% on 2 L, anticipate discharge to rehab on Tuesday 08/14: Patient is seen this morning in her room. Her heart rate has been controlled and blood pressure is on the lower side for which Lopressor will be decreased to 12.5 g twice daily. Hemoglobin is at 8.5. INR 1.5. BUN 33 and creatinine 1.61 and IV fluids will be increased 100 mL per hour for 24 hours and then plan to decrease to 75. We will reassess tomorrow. Iron will be resumed at 325 mg daily and iron studies ordered. Plan is for discharge to ECF on Wednesday 08/15: BUN 35 and creatinine 1.22. IV fluids will be continued for another 24 hours but at 75 mL per hour. We will start Ferrlecit treatment one today and one tomorrow. INR is therapeutic at 2.4. Patient had tachycardia last night and was started on amiodarone 400 mg twice daily. We will increase Lopressor to 12.5 during the day and 25 at bedtime. Patient denies having any chest pain or chest pressure. No palpitations. She denies having any weakness. Hernández catheter remains in place which anticipate this will be discontinued today as she increases activity with PT. Patient is scheduled for rehab for tomorrow. 08/16: Patient was prepared for discharge to rehab today by orthopedics but she went into A. fib with RVR running 100 3250 bpm was started again on a Cardizem drip with Cardizem bolus. She is currently on amiodarone at 400 mg twice daily , Lopressor 25 mg twice daily and received an additional dose of 12.5 mg this morning. INR is therapeutic at 2.9. Patient denies having any chest pain or pressure, no dizziness or palpitations. Patient remains with Hernández catheter in place anticipate that this will be discontinued today once patient is able to purchase weight more with physical therapy. Discharge for today held. 08/17: Patient is currently on Cardizem drip but heart rate is running in the 1 teens, atrial fibrillation. She is also on amiodarone 400 mg twice daily orally and Lopressor 25 mg twice daily. Patient denies any new complaints. Her Hernández catheter is in place which will have removed today. She was up to the commode this morning to have a bowel movement. 08/18: Patient's heart rate has been running anywhere from 80 to 120s. It increases with minimal activity. Lopressor was increased to 25 mg 3 times daily. Cardizem drip to be discontinued and placed on oral Cardizem. Patient did have to be straight cathed times one. She denies any new complaints. She is eating her meals without difficulty. No shortness of breath, chest pain. No abdominal pain, nausea or vomiting. She is on Coumadin and INR is 4.0. Pharmacy is dosing. Review Of Systems: Constitutional: No fever, no chills, no night sweats. No weight change. + Generalized weakness, fatigue or lethargy. EENT: No headache. No blurred vision or double vision, no loss of vision. No nasal drainage or congestion. No epistaxis. No sore throat. Lungs: No shortness of breath, cough, no sputum production. No wheezing. Cardiovascular: No chest pain, no lower extremity edema. No palpitations. No paroxysmal nocturnal dyspnea. No orthopnea. No lightheadedness or dizziness. No syncopal episodes. Abdominal: No abdominal pain. No nausea, vomiting. No diarrhea. No constipation. No bloody or tarry stools.. No loss of appetite. Genitourinary: No dysuria, increased frequency, urgency. No urinary retention. Hernández in place Musculoskeletal: No myalgias. No muscle weakness, + gait dysfunction, no frequent falls. + Right hip pain controlled Integumentary: + wounds, no lesions. No rash or pruritus. No unusual bruising. Neurologic: No aphasia. No facial droop. No change in mentation. No head injury. No headache. No paralysis. No paresthesia. Psychiatric: No depression. No anxiety. No mood swings. Endocrine: No abnormal blood sugars. No weight change. No excessive sweating or thirst. No cold intolerance. No weight change. Objective - Vital Signs Vital signs: Vital Signs Temp 98.0 F 08/18/18 07:27 Pulse 103 H 08/18/18 07:35 Resp 16 08/18/18 07:27 BP 123/71 08/18/18 07:27 Pulse Ox 95 08/18/18 07:27 Intake & Output 08/17/18 08/18/18 08/18/18 18:59 06:59 18:59 Intake Total 670 100 Output Total 900 800 Balance -230 100 -800 Weight 54.5 kg Intake: Intake, IV Titration 100 100 Amount Diltiazem 50 mg In Sodium 100 100 Chloride 0.9% 40 ml @ 10 MG/HR 10 mls/hr IV .Q5H [facility] Rx#:[id number] Oral 570 Output: Urine 500 800 Straight 400 Post Void Residual 400 Other: # Bowel Movements 1 1 - Exam General appearance: no acute distress, thin, patient sitting up in recliner and appears comfortable, - EENT Eyes: anicteric sclerae, PERRLA, normal appearance ENT: hearing grossly normal - Neck Neck: no lymphadenopathy, normal ROM, no other, no rigidity, no stridor, no thyromegaly - Respiratory Respiratory: bilateral: CTA, negative: diminished, dullness, rales, rhonchi - Cardiovascular Rhythm: irregular Heart sounds: normal: S1, S2, tachycardic Abnormal Heart Sounds: no systolic murmur, 2+ diastolic murmur, no rub, no S3 Gallop, no S4 Gallop - Gastrointestinal General gastrointestinal: normal bowel sounds, soft, Hernández draining clear hayley urine - Integumentary Integumentary: no rash - Neurologic Neurologic: CNII-XII intact - Musculoskeletal Musculoskeletal: Dressing to the right hip, no breakthrough bleeding or drainage - Psychiatric Psychiatric: A&O x's 3, appropriate affect - Labs CBC & Chem 7: 08/18/18 06:08 08/18/18 06:08 Labs: Abnormal Lab Results - Last 24 Hours (Table) 08/17/18 08/18/18 08/18/18 Range/Units 10:48 06:08 06:08 RBC 3.02 L (3.80-5.40) m/uL Hgb 8.0 L (11.4-16.0) gm/dL Hct 26.0 L (34.0-46.0) % MCHC 30.8 L (31.0-37.0) g/dL RDW 20.6 H (11.5-15.5) % PT 30.1 H (9.0-12.0) sec INR 3.4 H (<1.2) Sodium 134 L (137-145) mmol/L BUN 24 H (7-17) mg/dL Glucose 106 H (74-99) mg/dL Calcium 8.0 L (8.4-10.2) mg/dL 08/18/18 Range/Units 06:08 RBC (3.80-5.40) m/uL Hgb (11.4-16.0) gm/dL Hct (34.0-46.0) % MCHC (31.0-37.0) g/dL RDW (11.5-15.5) % PT 35.8 H (9.0-12.0) sec INR 4.0 H (<1.2) Sodium (137-145) mmol/L BUN (7-17) mg/dL Glucose (74-99) mg/dL Calcium (8.4-10.2) mg/dL Assessment and Plan Plan: 1. Right subcapital fracture status post right hip hemiarthroplasty completed on 08/12. Continue pain management per orthopedics, PT, OT. Coumadin for DVT prophylaxis, dosed by pharmacy. Incentive spirometry to reduce incidence of atelectasis and hospital-acquired pneumonia. 2. Atrial fibrillation with RVR with underlying paroxysmal atrial fibrillation. Coumadin is therapeutic. Cardizem drip to be discontinued. Patient is on amiodarone, Cardizem 30 mg 3 times daily, Lopressor 50 mg twice daily. 3. History of sick sinus syndrome with prior pacemaker implantation. 4. History of shortness of breath on exertion with concern for diastolic heart failure on echocardiogram. Recommend outpatient PFTs to assess for COPD. 5. GI prophylaxis. 6. DVT prophylaxis. 7. Acute kidney injury with chronic kidney disease stage III. IV fluids completed. Re-evaluate lab work in the morning. 8. Anemia secondary to a combination of acute blood loss and acute kidney injury. Carmen completed 2 doses. CODE STATUS: DO NOT RESUSCITATE. Discharge plan: Subacute rehab at [facility] most likely tomorrow Impression and plan of care have been directed as dictated by the signing physician. Raven Shaw nurse practitioner acting as scribe for signing physician.
--- NOTE | 2018-08-19 14:47 | P.PN ---
Subjective Progress Note Date: 08/19/18 87 years old female patient of Dr. Morgan, Dr. Bryant was seen him once or twice in the clinic with past medical history of atrial fibrillation status post pacemaker on Coumadin, hypertension, history of chronic iron deficiency anemia with the borderline hyperglycemia, hypercholesterolemia, diastolic heart failur, TIA 15 years ago presents after a fall this morning when she was coming off the bed. Patient complains of dizziness but denies any palpitation, chest pain, or shortness of breath. She denies any previous falls. Is independent lives by herself. She was seen by Dr. Morgan in April for shortness of breath and was started on low dose of Lasix for concern of diastolic heart failure. Patient also seen by Dr. Bryant in June and gets echocardiogram every 6 month. Patient does have history of osteoporosis according to the patient no documented DEXA scan in chart. X-ray of the hip suggest a subcapital right hip non-communicated [id number] impaction fracture. Labs done in the ER suggested hemoglobin of 11.7, creatinine 1.03 glucose borderline high 114. No coagulating factors ordered. PT/INR ordered. Internal medicine team consulted for preop clearance. Patient denies any chest pain or shortness of breath. She is independent and ambulates without the use of cane or walker. 08/11: Patient denies any new complaints. Pain is better and seems to be controlled at this time. Hernández catheter is in place. Patient did NOT receive vitamin K yesterday. INR is at 3.1 and vitamin K will be given this afternoon. Blood pressure is on the low side. Patient is tolerating. Patient had episode of A. fib RVR at 147. Cardiology consult requested. Later it was found the patient had difficulty swallowing verapamil and hit it in her napkin was embarrassed to say anything about it. A new dose of verapamil to be given now. 08/12: Patient is gone for surgery. She is on IV Cardizem. Echocardiogram reveals EF of 55-60%, LAD severely dilated greater than 40, severe mitral regurgitation, moderate tricuspid regurgitation, moderate pulmonary hypertension , moderate aortic regurgitation. 08/13: Patient underwent right hip hemiarthroplasty yesterday with Dr. Reed. Patient is to be weightbearing as tolerated on the right lower extremity. Coumadin for anticoagulation which pharmacy is dosing. INR is 1.2. Patient had A. fib with RVR during the night running in the 120s. Radiology is planning to give additional dose of Lopressor, and discontinue Cardizem drip and continue beta derek. TSH 2.260. Hernández catheter in place draining dark urine. Patient is encouraged to increase fluid intake. Urine culture finalized with no growth. She is doing incentive spirometry and only 500 and infrequently. Patient encouraged to do this every hour. Hemoglobin 11, pulse ox 90% on 2 L, anticipate discharge to rehab on Tuesday 08/14: Patient is seen this morning in her room. Her heart rate has been controlled and blood pressure is on the lower side for which Lopressor will be decreased to 12.5 g twice daily. Hemoglobin is at 8.5. INR 1.5. BUN 33 and creatinine 1.61 and IV fluids will be increased 100 mL per hour for 24 hours and then plan to decrease to 75. We will reassess tomorrow. Iron will be resumed at 325 mg daily and iron studies ordered. Plan is for discharge to ECF on Wednesday 08/15: BUN 35 and creatinine 1.22. IV fluids will be continued for another 24 hours but at 75 mL per hour. We will start Ferrlecit treatment one today and one tomorrow. INR is therapeutic at 2.4. Patient had tachycardia last night and was started on amiodarone 400 mg twice daily. We will increase Lopressor to 12.5 during the day and 25 at bedtime. Patient denies having any chest pain or chest pressure. No palpitations. She denies having any weakness. Hernández catheter remains in place which anticipate this will be discontinued today as she increases activity with PT. Patient is scheduled for rehab for tomorrow. 08/16: Patient was prepared for discharge to rehab today by orthopedics but she went into A. fib with RVR running 100 3250 bpm was started again on a Cardizem drip with Cardizem bolus. She is currently on amiodarone at 400 mg twice daily , Lopressor 25 mg twice daily and received an additional dose of 12.5 mg this morning. INR is therapeutic at 2.9. Patient denies having any chest pain or pressure, no dizziness or palpitations. Patient remains with Hernández catheter in place anticipate that this will be discontinued today once patient is able to purchase weight more with physical therapy. Discharge for today held. 08/17: Patient is currently on Cardizem drip but heart rate is running in the 1 teens, atrial fibrillation. She is also on amiodarone 400 mg twice daily orally and Lopressor 25 mg twice daily. Patient denies any new complaints. Her Hernández catheter is in place which will have removed today. She was up to the commode this morning to have a bowel movement. 08/18: Patient's heart rate has been running anywhere from 80 to 120s. It increases with minimal activity. Lopressor was increased to 25 mg 3 times daily. Cardizem drip to be discontinued and placed on oral Cardizem. Patient did have to be straight cathed times one. She denies any new complaints. She is eating her meals without difficulty. No shortness of breath, chest pain. No abdominal pain, nausea or vomiting. She is on Coumadin and INR is 4.0. Pharmacy is dosing. 08/19: Patient is found sitting up in a recliner and appears to be comfortable. She is denying any new complaints and is hoping that she can go to rehab today. Orthopedics is waiting for clearance from medicine and cardiology. Cardiology has cleared the patient for discharge. INR today is at 3.1. Patient will be discharged to [facility] today in stable condition and will follow under the care of Dr. Morgan. Review Of Systems: Constitutional: No fever, no chills, no night sweats. No weight change. + Generalized weakness, fatigue or lethargy. EENT: No headache. No blurred vision or double vision, no loss of vision. No epistaxis. No sore throat. Lungs: No shortness of breath, cough, no sputum production. No wheezing. Cardiovascular: No chest pain, no lower extremity edema. No palpitations. No paroxysmal nocturnal dyspnea. No orthopnea. No lightheadedness or dizziness. No syncopal episodes. Abdominal: No abdominal pain. No nausea, vomiting. No diarrhea. No constipation. No bloody or tarry stools.. No loss of appetite. Genitourinary: No dysuria, increased frequency, urgency. No urinary retention. Hernández in place Musculoskeletal: No myalgias. No muscle weakness, + gait dysfunction, no frequent falls. + Right hip pain controlled Integumentary: + wounds, no lesions. No rash or pruritus. No unusual bruising. Neurologic: No aphasia. No facial droop. No change in mentation. No head injury. No headache. No paralysis. No paresthesia. Psychiatric: No depression. No anxiety. No mood swings. Endocrine: No abnormal blood sugars. No weight change. No excessive sweating or thirst. No cold intolerance. No weight change. Objective - Vital Signs Vital signs: Vital Signs Temp 98.2 F 08/19/18 04:00 Pulse 79 08/19/18 04:00 Resp 16 08/19/18 04:00 BP 110/66 08/19/18 04:00 Pulse Ox 98 08/19/18 04:00 Intake & Output 08/18/18 08/19/18 08/19/18 18:59 06:59 18:59 Intake Total 230 237 100 Output Total 800 0 Balance -570 237 100 Weight 54.5 kg 57 kg Intake: Intake, IV Titration 50 Amount Diltiazem 50 mg In Sodium 50 Chloride 0.9% 40 ml @ 10 MG/HR 10 mls/hr IV .Q5H [facility] Rx#:[id number] Oral 180 237 100 Output: Urine 800 0 Straight 400 Other: # Voids 1 # Bowel Movements 1 - Exam General appearance: no acute distress, thin, patient sitting up in recliner and appears comfortable, - EENT Eyes: anicteric sclerae, PERRLA, normal appearance ENT: hearing grossly normal - Neck Neck: no lymphadenopathy, normal ROM, no other, no rigidity, no stridor, no thyromegaly - Respiratory Respiratory: bilateral: CTA, negative: diminished, dullness, rales, rhonchi - Cardiovascular Rhythm: irregular Heart sounds: normal: S1, S2, tachycardic Abnormal Heart Sounds: no systolic murmur, 2+ diastolic murmur, no rub, no S3 Gallop, no S4 Gallop - Gastrointestinal General gastrointestinal: normal bowel sounds, soft, Hernández discontinued - Integumentary Integumentary: no rash - Neurologic Neurologic: CNII-XII intact - Musculoskeletal Musculoskeletal: Dressing to the right hip, no breakthrough bleeding or drainage - Psychiatric Psychiatric: A&O x's 3, appropriate affect - Labs CBC & Chem 7: 08/18/18 06:08 08/18/18 06:08 Labs: Abnormal Lab Results - Last 24 Hours (Table) 08/19/18 Range/Units 05:30 PT 28.1 H (9.0-12.0) sec INR 3.1 H (<1.2) Assessment and Plan Plan: 1. Right subcapital fracture status post right hip hemiarthroplasty completed on 08/12. Continue pain management per orthopedics, PT, OT. Coumadin for DVT prophylaxis, dosed by pharmacy. Incentive spirometry to reduce incidence of atelectasis and hospital-acquired pneumonia. 2. Atrial fibrillation with RVR with underlying paroxysmal atrial fibrillation. Coumadin is therapeutic. Patient is on amiodarone, Cardizem 30 mg 3 times daily, Lopressor 50 mg twice daily. 3. History of sick sinus syndrome with prior pacemaker implantation. 4. History of shortness of breath on exertion with concern for diastolic heart failure on echocardiogram. Recommend outpatient PFTs to assess for COPD. 5. GI prophylaxis. 6. DVT prophylaxis. 7. Acute kidney injury with chronic kidney disease stage III. IV fluids completed. Re-evaluate lab work in the morning. 8. Anemia secondary to a combination of acute blood loss and acute kidney injury. Carmen completed 2 doses. CODE STATUS: DO NOT RESUSCITATE. Discharge plan: [facility] today under the care of Dr. Morgan. Impression and plan of care have been directed as dictated by the signing physician. Raven Shaw nurse practitioner acting as scribe for signing physician.
[2018-08-19 15:43] VITALS: BP 98/57; PULSE 94; TEMP 97.9
[2018-08-19] MEDS ORDERED: WARFARIN 0.5 MG TAB PO ONE (18:00)
== END 2018-08-19 18:25 | DRG 470 ==
LOC: EC 10:15 → 3NMEDONC 12:26 → 3SCARD 08-11 17:33
PROVIDERS: ADMIT Orthopaedic Surgery; ATTEND Orthopaedic Surgery
PROC: 0SRR0JA Replacement of Right Hip Joint, Femoral Surface with Synthetic Substitute, Uncemented, Open Approach (ICD-10-PCS; principal; 2018-08-12 10:15)
DX: S72.011A Unspecified intracapsular fracture of right femur, initial encounter for closed fracture (principal); I50.32 Chronic diastolic (congestive) heart failure; I13.0 Hypertensive heart and chronic kidney disease with heart failure and stage 1 through stage 4 chronic kidney disease, or unspecified chronic kidney disease; N17.9 Acute kidney failure, unspecified; D62 Acute posthemorrhagic anemia; D50.9 Iron deficiency anemia, unspecified; E78.00 Pure hypercholesterolemia, unspecified; E78.5 Hyperlipidemia, unspecified; I08.1 Rheumatic disorders of both mitral and tricuspid valves; I27.20 Pulmonary hypertension, unspecified; I48.0 Paroxysmal atrial fibrillation; M41.9 Scoliosis, unspecified; W01.0XXA Fall on same level from slipping, tripping and stumbling without subsequent striking against object, initial encounter; Y92.009 Unspecified place in unspecified non-institutional (private) residence as the place of occurrence of the external cause; Z66 Do not resuscitate; Z79.01 Long term (current) use of anticoagulants; Z79.899 Other long term (current) drug therapy; Z82.49 Family history of ischemic heart disease and other diseases of the circulatory system; Z85.3 Personal history of malignant neoplasm of breast; Z86.73 Personal history of transient ischemic attack (TIA), and cerebral infarction without residual deficits; Z87.891 Personal history of nicotine dependence; Z90.12 Acquired absence of left breast and nipple; Z95.0 Presence of cardiac pacemaker; Z98.42 Cataract extraction status, left eye; Z98.41 Cataract extraction status, right eye; Z96.1 Presence of intraocular lens; Z92.21 Personal history of antineoplastic chemotherapy; Z92.3 Personal history of irradiation; N18.3 Chronic kidney disease, stage 3 (moderate); R00.0 Tachycardia, unspecified
CPT/HCPCS: 71045; 73501; 73502; 80048; 80053; 81001; 82728; 83540; 83550; 83735; 84443; 85025; 85027; 85610; 85730; 86850; 86900; 86901; 87086; 88305; 88311; 93005; 93306; 96372; 99284

== ENCOUNTER 2018-09-19 22:45 | Inpatient (IN) | payer MEDICARE ==
--- NOTE | 2018-09-19 23:22 | ED ---
General Adult HPI - General Chief complaint: Shortness of Breath Stated complaint: weakness,SOB Time Seen by Provider: 09/19/18 22:47 Source: patient, EMS, RN notes reviewed, old records reviewed Limitations: no limitations - History of Present Illness Initial comments: 88 -year-old history of congestive heart failure presents for evaluation of dyspnea and lower extremity edema. Patient reports that the swelling in her legs is progressed to her thighs. She also reports generalized weakness. She was brought in by EMS, noted to be hypoxic in the 80s. She is currently not on home oxygen. Denies fever or chills. Denies URI symptoms. Denies chest pain. Denies palpitations. She has had several medication changes over the past weeks. She was recently admitted with hip fracture and discharged to residential. She has been home from the residential for the past 5 days. She is currently on Coumadin. - Related Data Home Medications Medication Instructions Recorded Confirmed PARoxetine [Paxil] 10 mg PO DAILY 08/28/17 09/19/18 Simvastatin [Zocor] 40 mg PO HS 08/28/17 09/19/18 Furosemide [Lasix] 20 mg PO DAILY 08/10/18 09/19/18 Sennosides [Senokot] 1 tab PO BID PRN 09/19/18 09/19/18 Slow Fe 47.5mg 95 mg PO DAILY 09/19/18 09/19/18 Warfarin [Coumadin] 1.25 mg PO SUMOTUTHSA 09/19/18 09/19/18 Previous Rx's Medication Instructions Recorded HYDROcodone/APAP 5-325MG [[place] 1 - 2 tab PO Q4-6H PRN #84 tab 08/14/18 5-325] Acetaminophen Tab [Tylenol] 650 mg PO Q6HR PRN tab 08/19/18 Amiodarone [Cordarone] 200 mg PO BID tab 08/19/18 Diltiazem Oral [Cardizem*] 30 mg PO TID tab 08/19/18 Metoprolol Tartrate [Lopressor] 50 mg PO BID tab 08/19/18 Allergies Allergy/AdvReac Type Severity Reaction Status Date / Time No Known Allergies Allergy Verified 09/19/18 23:32 Review of Systems ROS Statement: Those systems with pertinent positive or pertinent negative responses have been documented in the HPI. ROS Other: All systems not noted in ROS Statement are negative. Past Medical History Past Medical History: Atrial Fibrillation, Heart Failure, CVA/TIA, Hyperlipidemia Additional Past Medical History / Comment(s): Cardiac murmur, bronchitis, iron deficiency anemia, TIA, L breast cancer with surgery/chemo/radiation, bilateral raynauld's disease, bronchitis. History of Any Multi-Drug Resistant Organisms: None Reported Past Surgical History: Pacemaker Additional Past Surgical History / Comment(s): L mastectomy with lymph nodes removed, ectopic with 1 fallopian tube removed, bilateral cataract removals/lens implants. right hip replacement Past Anesthesia/Blood Transfusion Reactions: No Reported Reaction Additional Past Anesthesia/Blood Transfusion Reaction / Comment(s): Pt states she received blood with her ectopic without reaction. Type of Cardiac Device: Permanent Pacemaker Device Placement Date:: 2015 in [place] Past Psychological History: No Psychological Hx Reported Smoking Status: Former smoker Past Alcohol Use History: None Reported Past Drug Use History: None Reported - Past Family History Father Family Medical History: Coronary Artery Disease (CAD), Hypertension Additional Family Medical History / Comment(s): heart attack in 80's Mother Family Medical History: Dementia Additional Family Medical History / Comment(s): Mother had gallstones.noly child , 2 daughter an d son with no medical problems General Exam Limitations: no limitations General appearance: alert, in no apparent distress Head exam: Present: atraumatic, normocephalic Eye exam: Present: normal appearance ENT exam: Present: normal exam Neck exam: Present: normal inspection. Absent: tenderness, meningismus Respiratory exam: Present: rales, decreased breath sounds. Absent: respiratory distress Cardiovascular Exam: Present: normal rhythm, tachycardia GI/Abdominal exam: Present: soft. Absent: distended, tenderness, guarding Extremities exam: Present: pedal edema Neurological exam: Present: alert, oriented X3. Absent: CN II-XII intact, motor sensory deficit Skin exam: Present: warm, dry, cyanosis (Peripheral cyanosis). Absent: diaphoretic Course Vital Signs 09/19/18 09/19/18 09/20/18 22:50 23:00 01:00 Temperature 97.5 F L Pulse Rate 50 L 58 L 58 L Respiratory 18 12 12 Rate Blood Pressure 128/71 128/71 140/99 O2 Sat by Pulse 98 98 97 Oximetry EKG Findings - EKG Comments: EKG Findings:: EKG: Sinus bradycardia, left atrial enlargement, T-wave inversion in the precordial leads, no ST segment elevation or depression. Rate of 52, CT interval 172, QRS duration 100, QTC 489 Medical Decision Making - Medical Decision Making 88 -year-old female presenting with dyspnea. Clinically patient is heart failure. She does have history of congestive heart failure. Symptoms have progressed over 1 week. Chest x-ray shows pulmonary edema and bilateral effusions. She has normal white blood cell count, stable hemoglobin, INR is supratherapeutic, Coumadin will be held. BNP significantly elevated 36,200. Consistent with heart failure. Patient has a DO NOT RESUSCITATE. She will be admitted for IV diuresis. Diagnosis: Congestive heart failure with hypoxia. - Lab Data Result diagrams: 09/19/18 23:28 09/19/18 23:28 Lab Results 09/19/18 09/19/18 09/19/18 Range/Units 23:28 23:28 23:28 WBC 10.4 (3.8-10.6) k/uL RBC 4.61 (3.80-5.40) m/uL Hgb 12.7 (11.4-16.0) gm/dL Hct 41.9 (34.0-46.0) % MCV 90.9 (80.0-100.0) fL MCH 27.5 (25.0-35.0) pg MCHC 30.2 L (31.0-37.0) g/dL RDW 19.3 H (11.5-15.5) % Plt Count 288 (150-450) k/uL Neutrophils % 83 % Lymphocytes % 11 % Monocytes % 4 % Eosinophils % 1 % Basophils % 0 % Neutrophils # 8.6 H (1.3-7.7) k/uL Lymphocytes # 1.2 (1.0-4.8) k/uL Monocytes # 0.4 (0-1.0) k/uL Eosinophils # 0.1 (0-0.7) k/uL Basophils # 0.0 (0-0.2) k/uL Hypochromasia Moderate Anisocytosis Slight PT (9.0-12.0) sec INR (<1.2) APTT (22.0-30.0) sec Sodium 132 L (137-145) mmol/L Potassium 4.0 (3.5-5.1) mmol/L Chloride 95 L (98-107) mmol/L Carbon Dioxide 25 (22-30) mmol/L Anion Gap 12 mmol/L BUN 22 H (7-17) mg/dL Creatinine 0.94 (0.52-1.04) mg/dL Est GFR (CKD-EPI)AfAm 64 (>60 ml/min/1.73 sqM) Est GFR (CKD-EPI)NonAf 55 (>60 ml/min/1.73 sqM) Glucose 150 H (74-99) mg/dL Calcium 9.2 (8.4-10.2) mg/dL Magnesium 2.0 (1.6-2.3) mg/dL Total Bilirubin 1.3 (0.2-1.3) mg/dL AST 40 H (14-36) U/L ALT 43 (9-52) U/L Alkaline Phosphatase 219 H (38-126) U/L Total Creatine Kinase 55 (30-135) U/L CK-MB (CK-2) 2.5 H (0.0-2.4) ng/mL CK-MB (CK-2) Rel Index 4.5 Troponin I 0.017 (0.000-0.034) ng/mL NT-Pro-B Natriuret Pep pg/mL Total Protein 6.5 (6.3-8.2) g/dL Albumin 3.8 (3.5-5.0) g/dL 09/19/18 09/19/18 Range/Units 23:28 23:28 WBC (3.8-10.6) k/uL RBC (3.80-5.40) m/uL Hgb (11.4-16.0) gm/dL Hct (34.0-46.0) % MCV (80.0-100.0) fL MCH (25.0-35.0) pg MCHC (31.0-37.0) g/dL RDW (11.5-15.5) % Plt Count (150-450) k/uL Neutrophils % % Lymphocytes % % Monocytes % % Eosinophils % % Basophils % % Neutrophils # (1.3-7.7) k/uL Lymphocytes # (1.0-4.8) k/uL Monocytes # (0-1.0) k/uL Eosinophils # (0-0.7) k/uL Basophils # (0-0.2) k/uL Hypochromasia Anisocytosis PT 78.4 H (9.0-12.0) sec INR 8.0 H* (<1.2) APTT 33.5 H (22.0-30.0) sec Sodium (137-145) mmol/L Potassium (3.5-5.1) mmol/L Chloride (98-107) mmol/L Carbon Dioxide (22-30) mmol/L Anion Gap mmol/L BUN (7-17) mg/dL Creatinine (0.52-1.04) mg/dL Est GFR (CKD-EPI)AfAm (>60 ml/min/1.73 sqM) Est GFR (CKD-EPI)NonAf (>60 ml/min/1.73 sqM) Glucose (74-99) mg/dL Calcium (8.4-10.2) mg/dL Magnesium (1.6-2.3) mg/dL Total Bilirubin (0.2-1.3) mg/dL AST (14-36) U/L ALT (9-52) U/L Alkaline Phosphatase (38-126) U/L Total Creatine Kinase (30-135) U/L CK-MB (CK-2) (0.0-2.4) ng/mL CK-MB (CK-2) Rel Index Troponin I (0.000-0.034) ng/mL NT-Pro-B Natriuret Pep 25625 pg/mL Total Protein (6.3-8.2) g/dL Albumin (3.5-5.0) g/dL Disposition Clinical Impression: Congestive heart failure, Supratherapeutic INR Disposition: ADMITTED IP TO THIS [facility] Condition: Stable Is patient prescribed a controlled substance at d/c from ED?: No Referrals: Haroon Morgan MD [Primary Care Provider] - 1-2 days Decision to Admit Reason: Admit from EC Decision Date: 09/20/18 Decision Time: 01:32
[2018-09-19 23:38] LABS: Anisocytosis Slight; Basophils % (A) 0 %; Eosinophils # (A) 0.1 k/uL (0-0.7); Eosinophils % (A) 1 %; HCT 41.9 % (34.0-46.0); HGB 12.7 gm/dL (11.4-16.0); Hypochromasia Moderate; Lymphocytes # (A) 1.2 k/uL (1.0-4.8); Lymphocytes % (A) 11 %; MCH 27.5 pg (25.0-35.0); MCHC 30.2 g/dL (31.0-37.0); MCV 90.9 fL (80.0-100.0); Mean Platelet Volume 8.4; Monocytes # (A) 0.4 k/uL (0-1.0); Monocytes % (A) 4 %; Neutrophils # (A) 8.6 k/uL (1.3-7.7); Neutrophils % (A) 83 %; Platelet Count 288 k/uL (150-450); RBC 4.61 m/uL (3.80-5.40); RDW 19.3 % (11.5-15.5); WBC 10.4 k/uL (3.8-10.6)
[2018-09-19 23:47] LABS: Albumin 3.8 g/dL (3.5-5.0); Calcium 9.2 mg/dL (8.4-10.2); Total Bilirubin 1.3 mg/dL (0.2-1.3); Total Protein 6.5 g/dL (6.3-8.2)
[2018-09-19 23:52] LABS: Partial Thromboplastin Time 33.5 sec (22.0-30.0); Prothrombin Time 78.4 sec (9.0-12.0)
[2018-09-20 00:10] LABS: Creatine Kinase MB 2.5 ng/mL (0.0-2.4); Troponin I 0.017 ng/mL (0.000-0.034)
--- NOTE | 2018-09-20 00:20 | XR ---
EXAMINATION TYPE: XR chest 2V DATE OF EXAM: 09/20/2018 COMPARISON: 08/10/2018 HISTORY: Difficulty breathing TECHNIQUE: Frontal and lateral views of the chest are obtained. FINDINGS: There is blunting of the costophrenic angles related to moderate pleural effusion. Heart i s enlarged. There is probably pulmonary vascular congestion. There is left axillary pacemaker with th e lead tip in the right ventricle. Thoracic aorta is atheromatous. IMPRESSION: Congestive heart failure with pleural effusions is new compared to old exam.
[2018-09-20] MEDS ORDERED: FUROSEMIDE 10 MG/ML 4 ML VIAL IV STA (00:22)
[2018-09-20] MEDS ORDERED: NALOXONE 0.4 MG/ML 1 ML VIAL IV PRN (01:27)
[2018-09-20] MEDS ORDERED: ACETAMINOPHEN TAB 325 MG TAB PO PRN (01:27)
[2018-09-20] MEDS ORDERED: SENNOSIDES 8.6 MG TAB PO PRN (08:01)
[2018-09-20] MEDS ORDERED: HYDROcodone/APAP 5-325MG 1 EACH TAB PO PRN (08:01)
[2018-09-20] MEDS: PARoxetine 10 MG TAB PO SCH (08:48)
[2018-09-20] MEDS: FERROUS SULFATE 325 MG TAB PO SCH (08:59)
[2018-09-20] MEDS ORDERED: METOPROLOL TARTRATE 50 MG TAB PO SCH (09:00)
[2018-09-20] MEDS ORDERED: FUROSEMIDE 10 MG/ML 4 ML VIAL IV SCH (09:00)
[2018-09-20] MEDS ORDERED: DILTIAZEM ORAL 30 MG TAB PO SCH (09:00)
[2018-09-20 11:41] LABS: Prothrombin Time 72.8 sec (9.0-12.0)
[2018-09-20 11:51] LABS: INR 7.5 (<1.2)
--- NOTE | 2018-09-20 12:03 | CONS ---
CONSULTATION This is an 88-year-old elderly lady who sees Dr. Schofield in the office in the outpatient setting. She has a known history of paroxysmal atrial fibrillation with sick sinus syndrome and underlying pacemaker. She also has history of diastolic dysfunction, hypertension, and evidence of pulmonary hypertension. In August, she fell and fractured her hip and after recovery, [facility] was [facility]. About 5 days ago from the [facility], she went home and in the last 3 days, she has become more short of breath and has gained weight with edema of lower extremities, shortness of breath and decreased functional capacity, and therefore she came into the emergency room. Clinically, she is in heart failure with JVD, bilateral rales, and also lower extremity edema and elevated BNP and abnormal chest x-ray suggestive of CHF. She has been diuresed. She feels better today. She was in atrial fibrillation in August, but now she is in a sinus rhythm with sinus bradycardia, heart rate is in the low 50s. She is resting comfortably at the time of my evaluation without any chest pain or shortness of breath. PAST MEDICAL HISTORY: 1. History of paroxysmal atrial fibrillation with sick sinus syndrome and underlying permanent pacemaker. Patient is now in sinus rhythm. 2. History of diastolic heart failure. 3. Pulmonary hypertension. 4. History of mitral and tricuspid regurgitation. 5. Recent hip fracture. MEDICATIONS: At home include amiodarone 200 mg b.i.d., metoprolol tartrate 50 mg b.i.d., diltiazem, Lasix 20 mg daily. PHYSICAL EXAMINATION: Blood pressure is 120/70, pulse rate is about 60 per minute, regular. HEENT unremarkable. Fundus was not examined by me. Neck is supple, there is JVD of at least 1-2 cm. There is no carotid bruit. Heart exam reveals S1, S2 with an ejection systolic murmur at the base as well as a systolic murmur at the left sternal border. No diastolic murmurs. Lungs reveal fine rales both bases with diminished breath sounds. Abdomen is soft, nontender. Lower extremities reveal bilateral moderate edema with palpable pulses. Central nervous system grossly no focal deficits. EKG revealed sinus mechanism with sinus bradycardia, left atrial abnormality, precordial T-wave inversion which are precordial ST and T-wave abnormality, which are nonspecific findings. IMPRESSION: 1. Exacerbation of congestive heart failure, acute on chronic diastolic. 2. History of sick sinus syndrome with a permanent pacemaker. 3. History of paroxysmal atrial fibrillation but now in sinus rhythm. 4. History of pulmonary hypertension. RECOMMENDATION: I am recommending that we increase the Lasix to 40 mg q.8 hours. Check a BMP in the morning. Reduce metoprolol to 25 mg t.i.d. and discontinue diltiazem and decrease amiodarone to 200 mg daily. Based on her clinical course, we will make further recommendations. Patient will also be watched with daily weights as well. We will check a BMP in the morning. Thank you very much for the consult. MMODL / IJN: [id number] /
[2018-09-20] MEDS ORDERED: PHYTONADIONE ORAL 5 MG/5 ML ORAL.SYRG PO STA (12:25)
--- NOTE | 2018-09-20 12:59 | P.HPIM ---
History of Present Illness H&P Date: 09/20/18 Chief Complaint: acute diastolic heart failure. This is a pleasant 87-year-old female who follows regularly with Dr. Bryant in the office. She has known history of paroxysmal atrial fibrillation, and is on Coumadin for anticoagulation. History also of hyperlipidemia, hypertension, family history of premature coronary artery disease, prior nicotine dependence, sick sinus syndrome with prior pacemaker implantation , patient was recently hospitalized at the [facility] after she has had a right hip fracture where she underwent surgical intervention and she was sent to [facility] for physical therapy rehabilitation patient is an erythematous, out of [facility] on Thursday she went back home and the patient was getting weaker and weaker according to her daughter with increased shortness breath and minimal swelling in both lower extremities, patient ended up going yesterday with increased shortness of breath she was found to have an acute diastolic heart failure she was in atrial fibrillation which she did have before and she was admitted to the hospital for IV diuretics and optimization of her heart failure. Review of Systems Constitutional: Reports anorexia, Reports fatigue, Reports malaise, Reports weakness, Reports weight loss Eyes: denies blurred vision, denies bulging eye, denies decreased vision, denies diplopia Ears: bilateral: decreased hearing Ears, nose, mouth and throat: Denies dysphagia, Denies neck lump Cardiovascular: Reports decreased exercise tolerance, Reports dyspnea on exertion, Reports edema, Reports high blood pressure, Reports irregular heart beat, Reports paroxysmal nocturnal dyspnea, Reports rapid heart beat, Reports shortness of breath, Denies chest pain, Denies syncope Respiratory: Denies congestion, Denies cough with sputum, Denies home oxygen, Denies sleep apnea, Denies snoring, Denies wheezing Gastrointestinal: Denies abdominal pain, Denies bloating, Denies BRBPR, Denies heartburn, Denies melena, Denies nausea, Denies vomiting Genitourinary: Denies dysuria, Denies hematuria Menstruation: Reports postmenopausal Musculoskeletal: Reports atrophy, Reports fractures, Reports gait dysfunction Musculoskeletal: absent: ankle pain, ankle stiffness, ankle swelling, elbow pain , elbow stiffness, elbow swelling, foot pain, foot stiffness, foot swelling, hand pain, hand stiffness, hand swelling, hip pain, hip stiffness, hip swelling , knee pain, knee stiffness, knee swelling, shoulder pain, shoulder stiffness, shoulder swelling, wrist pain, wrist stiffness, wrist swelling Integumentary: Denies pruritus, Denies rash Neurological: Reports gait dysfunction, Denies numbness, Denies weakness Psychiatric: Denies anxiety, Denies depression Endocrine: Denies fatigue, Denies weight change Past Medical History Past Medical History: Atrial Fibrillation, Heart Failure, CVA/TIA, Hyperlipidemia Additional Past Medical History / Comment(s): Cardiac murmur, bronchitis, iron deficiency anemia, TIA, L breast cancer with surgery/chemo/radiation, bilateral raynauld's disease, bronchitis. History of Any Multi-Drug Resistant Organisms: None Reported Past Surgical History: Pacemaker Additional Past Surgical History / Comment(s): L mastectomy with lymph nodes removed, ectopic with 1 fallopian tube removed, bilateral cataract removals/lens implants. right hip replacement Past Anesthesia/Blood Transfusion Reactions: No Reported Reaction Additional Past Anesthesia/Blood Transfusion Reaction / Comment(s): Pt states she received blood with her ectopic without reaction. Type of Cardiac Device: Permanent Pacemaker Device Placement Date:: 2015 in [place] Past Psychological History: No Psychological Hx Reported Additional Psychological History / Comment(s): Pt resides with her daughter. They moved here from [place] 1 year ago. Pt uses a cane or wheeled walker to ambulate. Smoking Status: Former smoker (patient used to be a social smoker she quit about 40 years ago.) Past Alcohol Use History: None Reported Additional Past Alcohol Use History / Comment(s): Pt states she smoked during the 1960s socially. Past Drug Use History: None Reported - Past Family History Father Family Medical History: Coronary Artery Disease (CAD) (father at age of 86 from CAD.), Hypertension Mother Family Medical History: Dementia (mother at age of 85 from Alzheimer dementia.) Additional Family Medical History / Comment(s): Mother had gallstones.noly child , 2 daughter an d son with no medical problems Medications and Allergies Home Medications Medication Instructions Recorded Confirmed Type PARoxetine [Paxil] 10 mg PO DAILY 08/28/17 09/19/18 History Simvastatin [Zocor] 40 mg PO HS 08/28/17 09/19/18 History Furosemide [Lasix] 20 mg PO DAILY 08/10/18 09/19/18 History HYDROcodone/APAP 5-325MG [Smock 1 - 2 tab PO Q4-6H PRN #84 tab 08/14/18 Rx 5-325] Acetaminophen Tab [Tylenol] 650 mg PO Q6HR PRN tab 08/19/18 09/19/18 Rx Amiodarone [Cordarone] 200 mg PO BID tab 08/19/18 09/19/18 Rx Diltiazem Oral [Cardizem*] 30 mg PO TID tab 08/19/18 09/19/18 Rx Metoprolol Tartrate [Lopressor] 50 mg PO BID tab 08/19/18 09/19/18 Rx Sennosides [Senokot] 1 tab PO BID PRN 09/19/18 09/19/18 History Slow Fe 47.5mg 95 mg PO DAILY 09/19/18 09/19/18 History Warfarin [Coumadin] 1.25 mg PO [facility]OT[facility] 09/19/18 09/19/18 History Allergies Allergy/AdvReac Type Severity Reaction Status Date / Time No Known Allergies Allergy Verified 09/19/18 23:32 Physical Exam Vitals: Vital Signs Temp Pulse Pulse Resp BP BP Pulse Ox 09/20/18 12:00 57 L 16 146/76 96 09/20/18 08:00 97.9 F 57 L 18 157/91 09/20/18 06:24 57 L 18 09/20/18 06:23 97.8 F 57 L 18 158/86 98 09/20/18 05:00 57 L 20 145/55 97 09/20/18 03:39 90 18 150/86 97 09/20/18 02:00 68 12 142/74 09/20/18 01:00 58 L 12 140/99 97 09/19/18 23:00 58 L 12 128/71 98 09/19/18 22:50 97.5 F L 50 L 18 128/71 98 Intake and Output 09/19/18 09/20/18 09/20/18 22:59 06:59 14:59 Intake Total 10 Balance 10 Intake: IV 10 0.9 10 Other: Weight 45.359 kg 45.359 kg - Constitutional General appearance: no acute distress, thin - EENT Eyes: anicteric sclerae, EOMI, PERRLA, no ptosis, no scleral icterus, normal appearance ENT: hard of hearing, NA/AT, normal oropharynx, no thrush Ears: bilateral: normal - Neck Neck: no lymphadenopathy, normal ROM, no rigidity, no stridor, no thyromegaly Carotids: bilateral: upstroke normal Thyroid: bilateral: normal size - Respiratory Respiratory: bilateral: diminished, negative: dullness, rales, rhonchi, wheezing , prolonged expiration - Cardiovascular Rhythm: irregularly irregular Heart sounds: normal: S1, S2 Abnormal Heart Sounds: systolic murmur - Gastrointestinal General gastrointestinal: normal bowel sounds, soft, no splenomegaly, no tenderness, no umbilical hernia, no ventral hernia - Integumentary Integumentary: normal, normal turgor - Neurologic Neurologic: CNII-XII intact - Musculoskeletal Musculoskeletal: generalized weakness, strength equal bilaterally - Psychiatric Psychiatric: A&O x's 3, appropriate affect, intact judgment & insight Results CBC & Chem 7: 09/19/18 23:28 09/19/18 23:28 Labs: Abnormal Lab Results - Last 24 Hours (Table) 09/19/18 09/19/18 09/19/18 Range/Units 23:28 23:28 23:28 MCHC 30.2 L (31.0-37.0) g/dL RDW 19.3 H (11.5-15.5) % Neutrophils # 8.6 H (1.3-7.7) k/uL PT (9.0-12.0) sec INR (<1.2) APTT (22.0-30.0) sec Sodium 132 L (137-145) mmol/L Chloride 95 L (98-107) mmol/L BUN 22 H (7-17) mg/dL Glucose 150 H (74-99) mg/dL AST 40 H (14-36) U/L Alkaline Phosphatase 219 H (38-126) U/L CK-MB (CK-2) 2.5 H (0.0-2.4) ng/mL 09/19/18 09/20/18 Range/Units 23:28 10:44 MCHC (31.0-37.0) g/dL RDW (11.5-15.5) % Neutrophils # (1.3-7.7) k/uL PT 78.4 H 72.8 H (9.0-12.0) sec INR 8.0 H* 7.5 H* (<1.2) APTT 33.5 H (22.0-30.0) sec Sodium (137-145) mmol/L Chloride (98-107) mmol/L BUN (7-17) mg/dL Glucose (74-99) mg/dL AST (14-36) U/L Alkaline Phosphatase (38-126) U/L CK-MB (CK-2) (0.0-2.4) ng/mL Thrombosis Risk Factor Assmnt - DVT/VTE Prophylaxis DVT/VTE Prophylaxis: Pharmacologic Prophylaxis ordered, Mechanical Prophylaxis ordered - Choose All That Apply Any of the Below Risk Factors Present?: No Other Risk Factors: Yes Each Risk Factor Represents 3 Points: Age 75 years or older Other congenital or acquired thrombophilia - If yes, enter type in comment: Yes Each Risk Factor Represents 5 Points: Hip, pelvis, or leg fracture (< 1 month) Thrombosis Risk Factor Assessment Total Risk Factor Score: 8 Thrombosis Risk Factor Assessment Level: High Risk Assessment and Plan Assessment: Assessment and plan: 1. Acute diastolic heart failure. Continue patient on amiodarone 200 mg orally once every day, Lopressor 25 mg orally twice every day, and Lasix 40 mg IV push every 8 hours, input and output and daily weight, monitor the patient CMP and magnesium level on a daily basis. 2. Status post right hip arthroplasty was in about a month ago. Continue physical therapy evaluation. 3. Hypertension and hypertensive perivascular disease. Continue patient on Lopressor 25 mg orally twice every day. 4. Hyperlipidemia. Continue Lipitor 20 mg orally once every day. 5. Atrial fibrillation status post permanent pacemaker placement. Continue patient on amiodarone 200 mg orally once every day, Lopressor 25 mg orally twice every day hold off Coumadin since the INR is supratherapeutic. 6. Coagulopathy due to Coumadin use. Hold Coumadin no need for vitamin K repeat PT and INR tomorrow morning. 7. Anxiety. Continue Paxil 20 mg orally once every day. 8. Constipation. Continue with Colace. 9. DVT prophylaxis. Already on Coumadin. 10. GI prophylaxis. Continue PPI. 11. Admitted to inpatient. Estimated length of stay 2 midnights. 12. Medical debility. Physical therapy evaluation . 13. Full code.
[2018-09-20] MEDS: METOPROLOL TARTRATE 25 MG TAB PO SCH ×2 (16:13→20:57)
[2018-09-20] MEDS: FUROSEMIDE 10 MG/ML 4 ML VIAL IV SCH ×2 (16:14→23:06)
[2018-09-20] MEDS: ATORVASTATIN 20 MG TAB PO SCH (20:57)
[2018-09-21 08:14] LABS: Anisocytosis Slight; Basophils % (A) 0 %; Eosinophils # (A) 0.1 k/uL (0-0.7); Eosinophils % (A) 1 %; HCT 36.6 % (34.0-46.0); HGB 11.2 gm/dL (11.4-16.0); Hypochromasia Slight; INR 1.7 (<1.2); Lymphocytes # (A) 0.7 k/uL (1.0-4.8); Lymphocytes % (A) 13 %; MCH 27.1 pg (25.0-35.0); MCHC 30.5 g/dL (31.0-37.0); MCV 88.9 fL (80.0-100.0); Mean Platelet Volume 8.3; Monocytes # (A) 0.4 k/uL (0-1.0); Monocytes % (A) 7 %; Neutrophils # (A) 4.5 k/uL (1.3-7.7); Neutrophils % (A) 78 %; Platelet Count 216 k/uL (150-450); Prothrombin Time 16.8 sec (9.0-12.0); RBC 4.12 m/uL (3.80-5.40); RDW 18.9 % (11.5-15.5); WBC 5.8 k/uL (3.8-10.6)
[2018-09-21] MEDS: FERROUS SULFATE 325 MG TAB PO SCH (08:24)
[2018-09-21] MEDS: AMIODARONE 200 MG TAB PO SCH (08:24)
[2018-09-21] MEDS: PARoxetine 10 MG TAB PO SCH (08:24)
[2018-09-21] MEDS: METOPROLOL TARTRATE 25 MG TAB PO SCH ×3 (08:24→19:56)
[2018-09-21] MEDS: FUROSEMIDE 10 MG/ML 4 ML VIAL IV SCH (08:24)
[2018-09-21 08:32] LABS: Albumin 2.9 g/dL (3.5-5.0); Calcium 7.9 mg/dL (8.4-10.2); Total Bilirubin 1.2 mg/dL (0.2-1.3); Total Protein 5.2 g/dL (6.3-8.2)
[2018-09-21 08:37] LABS: Potassium 2.7 mmol/L (3.5-5.1)
[2018-09-21] MEDS ORDERED: Potassium Replacement Protocol 1 EACH MISC MISCELLANE PRN (09:20)
[2018-09-21] MEDS: POTASSIUM CHLORIDE ER 20 MEQ TAB.ER PO SCH ×3 (10:31→15:12)
[2018-09-21] MEDS ORDERED: POTASSIUM CHLORIDE ER 20 MEQ TAB.ER PO ONE (13:00)
--- NOTE | 2018-09-21 13:22 | PN ---
PROGRESS NOTE Mrs. Riddle is comfortable, breathing well. Her weight is down. Her edema has improved. She has no chest pain or shortness of breath. Her potassium is low at 2.7. I am recommending that we supplement the potassium and switch her to oral Lasix. Blood pressure is 104/70, pulse rate is 70 per minute. S1 S2 heard normally. Short systolic murmur is audible. JVD is 1 cm. Lungs are clearer. Abdominal and lower extremity exam unchanged. Edema has improved a lot. Lower extremity edema has improved but not totally resolved. MMODL / IJN: [id number] /
--- NOTE | 2018-09-21 13:22 | CONS ---
CONSULTATION ADDENDUM TO CONSULT Mrs. Riddle was hospitalized yesterday with exacerbation of congestive heart failure, but she also had another issue which I forgot to mention which was her coagulopathy with INR of 8.0. This was addressed by me with a single dose of oral vitamin K 10 mg and today her INR is 1.7. She is breathing better. MMDIYA / YONI: [id number] /
[2018-09-21 14:41] VITALS: BMI 19.3
--- NOTE | 2018-09-21 14:54 | P.PN ---
Subjective Progress Note Date: 09/21/18 This is a pleasant 87-year-old female who follows regularly with Dr. Bryant in the office. She has known history of paroxysmal atrial fibrillation, and is on Coumadin for anticoagulation. History also of hyperlipidemia, hypertension, family history of premature coronary artery disease, prior nicotine dependence, sick sinus syndrome with prior pacemaker implantation , patient was recently hospitalized at the [facility] after she has had a right hip fracture where she underwent surgical intervention and she was sent to [facility] for physical therapy rehabilitation patient is an erythematous, out of [facility] on Thursday she went back home and the patient was getting weaker and weaker according to her daughter with increased shortness breath and minimal swelling in both lower extremities, patient ended up going yesterday with increased shortness of breath she was found to have an acute diastolic heart failure she was in atrial fibrillation which she did have before and she was admitted to the hospital for IV diuretics and optimization of her heart failure. 09/21: Patient states that her breathing is a little bit better from yesterday but she is feeling tired today. She did have some loose stools this morning. Noted her pedal edema is decreased today. Cardiology is following and change Lasix to oral to start tomorrow. PT has recommended home with homecare. Potassium is 2.7 and will be replaced. INR is 1.7. Coumadin will be resumed Review of Systems Constitutional: Reports anorexia, Reports fatigue, Reports malaise, Reports weakness, Reports weight loss Eyes: denies blurred vision, denies bulging eye, denies decreased vision, denies diplopia Ears: bilateral: decreased hearing Ears, nose, mouth and throat: Denies dysphagia, Denies neck lump Cardiovascular: Reports decreased exercise tolerance, Reports dyspnea on exertion, Reports edema, Reports high blood pressure, Reports irregular heart beat, Reports paroxysmal nocturnal dyspnea, Reports rapid heart beat, Reports shortness of breath, Denies chest pain, Denies syncope Respiratory: Denies congestion, Denies cough with sputum, Denies home oxygen, Denies sleep apnea, Denies snoring, Denies wheezing Gastrointestinal: Denies abdominal pain, Denies bloating, Denies BRBPR, Denies heartburn, Denies melena, Denies nausea, Denies vomiting Genitourinary: Denies dysuria, Denies hematuria Menstruation: Reports postmenopausal Musculoskeletal: Reports atrophy, Reports fractures, Reports gait dysfunction Musculoskeletal: absent: ankle pain, ankle stiffness, ankle swelling, elbow pain , elbow stiffness, elbow swelling, foot pain, foot stiffness, foot swelling, hand pain, hand stiffness, hand swelling, hip pain, hip stiffness, hip swelling , knee pain, knee stiffness, knee swelling, shoulder pain, shoulder stiffness, shoulder swelling, wrist pain, wrist stiffness, wrist swelling Integumentary: Denies pruritus, Denies rash Neurological: Reports gait dysfunction, Denies numbness, Denies weakness Psychiatric: Denies anxiety, Denies depression Endocrine: Denies fatigue, Denies weight change Objective - Vital Signs Vital signs: Vital Signs Temp 98.8 F 09/21/18 08:00 Pulse 60 09/21/18 08:00 Resp 14 09/21/18 08:00 BP 149/69 09/21/18 08:00 Pulse Ox 94 L 09/21/18 08:00 Intake & Output 09/20/18 09/21/18 09/21/18 18:59 06:59 18:59 Output Total 1300 Balance -1300 Weight 48 kg Output: Urine 1300 Other: # Voids 3 1 - Exam General appearance: no acute distress, thin, patient is sitting up in a recliner and appears to be comfortable in no acute distress. - EENT Eyes: anicteric sclerae, EOMI, PERRLA, no ptosis, no scleral icterus, normal appearance ENT: hard of hearing, NA/AT, normal oropharynx, no thrush Ears: bilateral: normal - Neck Neck: no lymphadenopathy, normal ROM, no rigidity, no stridor, no thyromegaly Carotids: bilateral: upstroke normal Thyroid: bilateral: normal size - Respiratory Respiratory: bilateral: diminished, negative: dullness, rales, rhonchi, wheezing , prolonged expiration - Cardiovascular Rhythm: irregularly irregular Heart sounds: normal: S1, S2 Abnormal Heart Sounds: systolic murmur - Gastrointestinal General gastrointestinal: normal bowel sounds, soft, no splenomegaly, no tenderness, no umbilical hernia, no ventral hernia - Integumentary Integumentary: normal, normal turgor - Neurologic Neurologic: CNII-XII intact - Musculoskeletal Musculoskeletal: generalized weakness, strength equal bilaterally - Psychiatric Psychiatric: A&O x's 3, appropriate affect, intact judgment & insight - Labs CBC & Chem 7: 09/21/18 06:37 09/21/18 06:37 Labs: Abnormal Lab Results - Last 24 Hours (Table) 09/20/18 09/21/18 09/21/18 Range/Units 10:44 06:37 06:37 Hgb (11.4-16.0) gm/dL MCHC (31.0-37.0) g/dL RDW (11.5-15.5) % Lymphocytes # (1.0-4.8) k/uL PT 72.8 H 16.8 H (9.0-12.0) sec INR 7.5 H* 1.7 H (<1.2) Sodium 136 L (137-145) mmol/L Potassium 2.7 L* (3.5-5.1) mmol/L Chloride 94 L (98-107) mmol/L Carbon Dioxide 33 H (22-30) mmol/L BUN 21 H (7-17) mg/dL Glucose 67 L (74-99) mg/dL Calcium 7.9 L (8.4-10.2) mg/dL AST 39 H (14-36) U/L Alkaline Phosphatase 149 H (38-126) U/L Total Protein 5.2 L (6.3-8.2) g/dL Albumin 2.9 L (3.5-5.0) g/dL 09/21/18 Range/Units 06:37 Hgb 11.2 L (11.4-16.0) gm/dL MCHC 30.5 L (31.0-37.0) g/dL RDW 18.9 H (11.5-15.5) % Lymphocytes # 0.7 L (1.0-4.8) k/uL PT (9.0-12.0) sec INR (<1.2) Sodium (137-145) mmol/L Potassium (3.5-5.1) mmol/L Chloride (98-107) mmol/L Carbon Dioxide (22-30) mmol/L BUN (7-17) mg/dL Glucose (74-99) mg/dL Calcium (8.4-10.2) mg/dL AST (14-36) U/L Alkaline Phosphatase (38-126) U/L Total Protein (6.3-8.2) g/dL Albumin (3.5-5.0) g/dL Assessment and Plan Plan: 1. Acute diastolic heart failure. Continue patient on amiodarone 200 mg orally once every day, Lopressor 25 mg orally twice every day, and Lasix 40 mg orally daily, input and output and daily weight, monitor the patient. 2. Status post right hip arthroplasty was in about a month ago. Continue physical therapy evaluation. 3. Hypertension and hypertensive perivascular disease. Continue patient on Lopressor 25 mg orally three every day. 4. Hyperlipidemia. Continue Lipitor 20 mg orally once every day. 5. Paroxysmal atrial fibrillation status post permanent pacemaker placement. Continue patient on amiodarone 200 mg orally once every day, Lopressor 25 mg orally three times every day. Coumadin will be resumed. 6. Coagulopathy due to Coumadin use. 7. Generalized anxiety disorder. Continue Paxil 20 mg orally once every day. 8. Constipation. Continue with Colace. 9. DVT prophylaxis. On Coumadin. 10. GI prophylaxis. Continue PPI. 11. Medical debility. Physical therapy evaluation . Code status: No code. Discharge plan: Most likely [facility] for subacute rehab Impression and plan of care have been directed as dictated by the signing physician. Raven Shaw nurse practitioner acting as scribe for signing physician.
[2018-09-21] MEDS ORDERED: WARFARIN 1 MG TAB PO SCH (18:00)
[2018-09-21] MEDS: ATORVASTATIN 20 MG TAB PO SCH (19:56)
[2018-09-21] MEDS ORDERED: FUROSEMIDE 20 MG TAB PO SCH (21:00)
[2018-09-22 06:25] LABS: Anisocytosis Slight; HCT 38.5 % (34.0-46.0); HGB 12.1 gm/dL (11.4-16.0); Hypochromasia Slight; MCHC 31.5 g/dL (31.0-37.0); MCV 89.1 fL (80.0-100.0); Mean Platelet Volume 8.1; Platelet Count 222 k/uL (150-450); RBC 4.32 m/uL (3.80-5.40); WBC 5.3 k/uL (3.8-10.6)
[2018-09-22 06:29] LABS: INR 1.2 (<1.2); Prothrombin Time 12.6 sec (9.0-12.0)
[2018-09-22 06:52] LABS: Potassium 3.6 mmol/L (3.5-5.1)
[2018-09-22 06:53] LABS: Calcium 8.5 mg/dL (8.4-10.2)
[2018-09-22] MEDS ORDERED: POTASSIUM CHLORIDE ER 20 MEQ TAB.ER PO SCH (08:00)
[2018-09-22] MEDS ORDERED: FUROSEMIDE 40 MG TAB PO SCH (09:00)
[2018-09-22 09:01] VITALS: BP 137/64; PULSE 62; RESP 16; TEMP 97.6
[2018-09-22] MEDS: AMIODARONE 200 MG TAB PO SCH (09:02)
[2018-09-22] MEDS: FERROUS SULFATE 325 MG TAB PO SCH (09:02)
[2018-09-22] MEDS: METOPROLOL TARTRATE 25 MG TAB PO SCH (09:02)
[2018-09-22] MEDS: PARoxetine 10 MG TAB PO SCH (09:03)
--- NOTE | 2018-09-22 13:26 | P.DS ---
Providers Date of admission: 09/20/18 01:27 Expected date of discharge: 09/22/18 Attending physician: Jade Obando Consults: 09/20/18 01:28 Consult Physician Routine Consulting Provider: Elif Carbone Consult Reason/Comments: CHF Do you want consulting provider notified?: Yes Primary care physician: [facility] Course: This is a pleasant 87-year-old female who follows regularly with Dr. Bryant in the office. She has known history of paroxysmal atrial fibrillation, and is on Coumadin for anticoagulation. History also of hyperlipidemia, hypertension, family history of premature coronary artery disease, prior nicotine dependence, sick sinus syndrome with prior pacemaker implantation , patient was recently hospitalized at the [facility] after she has had a right hip fracture where she underwent surgical intervention and she was sent to [facility] for physical therapy rehabilitation patient is an erythematous, out of [facility] on Thursday she went back home and the patient was getting weaker and weaker according to her daughter with increased shortness breath and minimal swelling in both lower extremities, patient ended up going yesterday with increased shortness of breath she was found to have an acute diastolic heart failure she was in atrial fibrillation which she did have before and she was admitted to the hospital for IV diuretics and optimization of her heart failure. 09/21: Patient states that her breathing is a little bit better from yesterday but she is feeling tired today. She did have some loose stools this morning. Noted her pedal edema is decreased today. Cardiology is following and change Lasix to oral to start tomorrow. PT has recommended home with homecare. Potassium is 2.7 and will be replaced. INR is 1.7. Coumadin will be resumed 09/22: Patient again states that she is feeling much improved. Lower extremity edema is improved. Cardiology is cleared for discharge. INR today is 1.2. Creatinine 0.98. Patient will be discharged home today in stable condition. Dr. Mendoza is clarified Lasix, Coumadin. Amiodarone dosing and Lopressor dosing have been changed during this admission. Daughters at the bedside and states discharge plan is to return home. Patient will be discharged home today in stable condition. Discharge diagnoses: 1. Acute diastolic heart failure. 2. Status post right hip arthroplasty was in about a month ago. 3. Hypertension and hypertensive perivascular disease. 4. Hyperlipidemia. 5. Paroxysmal atrial fibrillation status post permanent pacemaker placement. 6. Coagulopathy due to Coumadin use. 7. Generalized anxiety disorder. 8. Constipation. Discharge plan: Home with [facility] Impression and plan of care have been directed as dictated by the signing physician. Raven Shaw nurse practitioner acting as scribe for signing physician. Patient Condition at Discharge: Good Plan - Discharge Summary New Discharge Prescriptions: New Furosemide [Lasix] 40 mg PO DAILY #60 tab Metoprolol Tartrate [Lopressor] 25 mg PO TID #90 tab Warfarin [Coumadin] 1 mg PO DAILY #30 tablet Continue Simvastatin [Zocor] 40 mg PO HS PARoxetine [Paxil] 10 mg PO DAILY HYDROcodone/APAP 5-325MG [Central 5-325] 1 - 2 tab PO Q4-6H PRN #84 tab PRN Reason: Pain Acetaminophen Tab [Tylenol] 650 mg PO Q6HR PRN tab PRN Reason: Mild Pain Or Fever > 100.5 Slow Fe 47.5mg 95 mg PO DAILY Sennosides [Senokot] 1 tab PO BID PRN PRN Reason: Constipation Changed Amiodarone [Cordarone] 200 mg PO DAILY #0 tab Discontinued Furosemide [Lasix] 20 mg PO DAILY Diltiazem Oral [Cardizem*] 30 mg PO TID tab Metoprolol Tartrate [Lopressor] 50 mg PO BID tab Warfarin [Coumadin] 1.25 mg PO [facility] Discharge Medication List PARoxetine [Paxil] 10 mg PO DAILY 08/28/17 [History] Simvastatin [Zocor] 40 mg PO HS 08/28/17 [History] HYDROcodone/APAP 5-325MG [Central 5-325] 1 - 2 tab PO Q4-6H PRN #84 tab 08/14/18 [ Rx] Acetaminophen Tab [Tylenol] 650 mg PO Q6HR PRN tab 08/19/18 [Rx] Sennosides [Senokot] 1 tab PO BID PRN 09/19/18 [History] Slow Fe 47.5mg 95 mg PO DAILY 09/19/18 [History] Amiodarone [Cordarone] 200 mg PO DAILY #0 tab 09/22/18 [Rx] Furosemide [Lasix] 40 mg PO DAILY #60 tab 09/22/18 [Rx] Metoprolol Tartrate [Lopressor] 25 mg PO TID #90 tab 09/22/18 [Rx] Warfarin [Coumadin] 1 mg PO DAILY #30 tablet 09/22/18 [Rx] Follow up Appointment(s)/Referral(s): Haroon Morgan MD [Primary Care Provider] - 09/24/18 11:30 am (With EXPEDITION SUPERVISOR Brianna Ferreira) [facility], [NON-STAFF] - Kareem Schofield MD [STAFF PHYSICIAN] - 10/01/18 4:00 pm (Thursday) Ambulatory/Diagnostic Orders: Prothrombin Time INR [LAB.AMB] Location: None Selected Patient Instructions/Handouts: Heart Failure (DC), Elevated INR (DC) Discharge Disposition: HOME WITH HOME HEALTH SERVICES
[2018-09-22] MEDS ORDERED: WARFARIN 2 MG TAB PO SCH (18:00)
--- NOTE | 2018-09-22 21:20 | PN ---
PROGRESS NOTE HISTORY: Ms. Riddle is actually feeling much better today. She had a significantly elevated INR when she came in, today it is normal. I am recommending that she can be discharged on current medications. We will give her Coumadin 2 mg today and 1 mg daily. PT/INR in 2 days. She has congestive heart failure, but there is improvement clinically. PHYSICAL EXAMINATION: Vital signs are stable. There is JVD of 1 cm. No carotid bruit. S1, S2 with a short systolic murmur is audible. Lungs are clear. Abdomen and lower extremity exams are unchanged. There is edema of lower extremities, but it is a lot better. PLAN: Increase activity and possibly discharge her today. MMODL / IJN: [id number] /
== END 2018-09-22 11:27 | disposition home health service (06) | DRG 292 ==
LOC: EC 22:45 → 3SCARD 09-20 01:27
PROVIDERS: ADMIT Internal Medicine; ATTEND Internal Medicine
DX: I11.0 Hypertensive heart disease with heart failure (principal); D68.9 Coagulation defect, unspecified; I08.1 Rheumatic disorders of both mitral and tricuspid valves; I27.20 Pulmonary hypertension, unspecified; I50.33 Acute on chronic diastolic (congestive) heart failure; E78.5 Hyperlipidemia, unspecified; F41.1 Generalized anxiety disorder; I48.0 Paroxysmal atrial fibrillation; K59.00 Constipation, unspecified; R09.02 Hypoxemia; T45.515A Adverse effect of anticoagulants, initial encounter; Z66 Do not resuscitate; Z79.01 Long term (current) use of anticoagulants; Z79.899 Other long term (current) drug therapy; Z82.0 Family history of epilepsy and other diseases of the nervous system; Z82.49 Family history of ischemic heart disease and other diseases of the circulatory system; Z85.3 Personal history of malignant neoplasm of breast; Z86.73 Personal history of transient ischemic attack (TIA), and cerebral infarction without residual deficits; Z87.891 Personal history of nicotine dependence; Z90.12 Acquired absence of left breast and nipple; Z95.0 Presence of cardiac pacemaker; Z98.42 Cataract extraction status, left eye; Z98.41 Cataract extraction status, right eye; Z96.1 Presence of intraocular lens; Z96.641 Presence of right artificial hip joint; Z79.891 Long term (current) use of opiate analgesic; Z87.81 Personal history of (healed) traumatic fracture
CPT/HCPCS: 36415; 71046; 80048; 80053; 82550; 82553; 83735; 83880; 84484; 85025; 85027; 85610; 85730; 93005; 96374; 96376; 99285

== ENCOUNTER 2019-05-11 14:39 | Inpatient (IN) | payer MEDICARE ==
[2019-05-11] MEDS ORDERED: SODIUM CHLORIDE 0.9% 1,000 ML IV STA (15:46)
[2019-05-11 16:09] LABS: Basophils # (A) 0.1 k/uL (0-0.2); Basophils % (A) 1 %; Eosinophils % (A) 1 %; HCT 46.2 % (34.0-46.0); Hypochromasia Moderate; Lymphocytes # (A) 1.5 k/uL (1.0-4.8); Lymphocytes % (A) 18 %; MCHC 30.3 g/dL (31.0-37.0); MCV 92.5 fL (80.0-100.0); Mean Platelet Volume 8.8; Monocytes # (A) 0.5 k/uL (0-1.0); Monocytes % (A) 6 %; Neutrophils # (A) 5.7 k/uL (1.3-7.7); Neutrophils % (A) 72 %; Platelet Count 229 k/uL (150-450); RDW 14.9 % (11.5-15.5)
[2019-05-11 16:19] LABS: INR 3.6 (<1.2); Partial Thromboplastin Time 31.1 sec (22.0-30.0); Prothrombin Time 34.2 sec (9.0-12.0)
[2019-05-11 16:21] LABS: Albumin 3.2 g/dL (3.5-5.0); Calcium 8.4 mg/dL (8.4-10.2); Total Bilirubin 1.2 mg/dL (0.2-1.3); Total Protein 5.8 g/dL (6.3-8.2)
--- NOTE | 2019-05-11 16:24 | ED ---
General Adult HPI <Toy Marie - Last Filed: 05/11/19 17:31> - General Source: patient, family Mode of arrival: wheelchair Limitations: no limitations <Brigette Sy - Last Filed: 05/11/19 17:51> - General Chief complaint: Nausea/Vomiting/Diarrhea Stated complaint: dehydration sent by PCP Time Seen by Provider: 05/11/19 14:57 - History of Present Illness Initial comments: Patient is a 88-year-old female presenting to the emergency department with her daughter with complaints of weakness x 1 week. Patient states she's also been not eating well and having diarrhea for the last week. Patient has past medical history of A. fib with a pacemaker, heart failure, CVA, hyperlipidemia.Patient states she went to Dr. Morgan and Dr Liu's office today and they were concerned that she was getting dehydrated as well as having an increase in bilateral leg edema. They requested her to come to the ER. Patient states she's been having an increase in leg edema for the past week as well. They did increase her Lasix today. Patient is denying any chest pain, nausea, vomiting, abdominal pain, shortness of breath. Patient states she is just feeling fatigued. No other complaints at this time. (Brigette Sy) - Related Data Home Medications Medication Instructions Recorded Confirmed PARoxetine [Paxil] 10 mg PO DAILY 08/28/17 05/11/19 Ferrous Sulfate [Feosol] 325 mg PO DAILY 05/11/19 05/11/19 Lisinopril [Zestril] 5 mg PO DAILY 05/11/19 05/11/19 Simvastatin [Zocor] 20 mg PO HS 05/11/19 05/11/19 Warfarin [Coumadin] 0.5 mg PO TUTHSA 05/11/19 05/11/19 Warfarin [Coumadin] 1 mg PO SUMOWEFR 05/11/19 05/11/19 Previous Rx's Medication Instructions Recorded Furosemide [Lasix] 40 mg PO DAILY #60 tab 09/22/18 Metoprolol Tartrate [Lopressor] 25 mg PO TID #90 tab 09/22/18 Allergies Allergy/AdvReac Type Severity Reaction Status Date / Time No Known Allergies Allergy Verified 05/11/19 15:27 Review of Systems ROS Other: All systems not noted in ROS Statement are negative. <Toy Marie - Last Filed: 05/11/19 17:31> ROS Other: All systems not noted in ROS Statement are negative. <KerrieBrigette Vicki - Last Filed: 05/11/19 17:51> ROS Statement: Those systems with pertinent positive or pertinent negative responses have been documented in the HPI. Past Medical History Past Medical History: Atrial Fibrillation, Heart Failure, CVA/TIA, Hyperlipidemia Additional Past Medical History / Comment(s): Cardiac murmur, bronchitis, iron deficiency anemia, TIA, L breast cancer with surgery/chemo/radiation, bilateral raynauld's disease, bronchitis. History of Any Multi-Drug Resistant Organisms: None Reported Past Surgical History: Pacemaker Additional Past Surgical History / Comment(s): L mastectomy with lymph nodes removed, ectopic with 1 fallopian tube removed, bilateral cataract r emovals/lens implants. right hip replacement Past Anesthesia/Blood Transfusion Reactions: No Reported Reaction Additional Past Anesthesia/Blood Transfusion Reaction / Comment(s): Pt states she received blood with her ectopic without reaction. Type of Cardiac Device: Permanent Pacemaker Device Placement Date:: 2015 in [place] Past Psychological History: No Psychological Hx Reported Smoking Status: Former smoker Past Alcohol Use History: None Reported Past Drug Use History: None Reported - Past Family History Father Family Medical History: Coronary Artery Disease (CAD) (father at age of 86 from CAD.), Hypertension Mother Family Medical History: Dementia (mother at age of 85 from Alzheimer dementia.) Additional Family Medical History / Comment(s): Mother had gallstones.noly child, 2 daughter an d son with no medical problems <Brigette Sy - Last Filed: 05/11/19 17:51> General Exam Limitations: no limitations <Brigette Sy - Last Filed: 05/11/19 17:51> - General Exam Comments Initial Comments: GENERAL: Well-appearing, well-nourished and in no acute distress, patient appears fatigued. HEAD: Atraumatic, normocephalic. EYES: Pupils equal round and reactive to light, extraocular movements intact, sclera anicteric, conjunctiva are normal. ENT: TMs normal, nares patent, oropharynx clear without exudates. Moist mucous membranes. NECK: Normal range of motion, supple without lymphadenopathy or JVD. LUNGS: Breath sounds clear to auscultation bilaterally and equal. No wheezes rales or rhonchi. HEART: Regular rate and rhythm without murmurs, rubs or gallops. ABDOMEN: Soft, nontender, normoactive bowel sounds. No guarding, no rebound. No masses appreciated. : Deferred EXTREMITIES: Normal range of motion. No clubbing or cyanosis. Patient has 2+ pitting edema bilateral legs. NEUROLOGICAL: Cranial nerves II through XII grossly intact. Normal speech, normal gait. PSYCH: Normal mood, normal affect. SKIN: Warm, Dry, normal turgor, no rashes or lesions noted. (Brigette Sy) Course Vital Signs 05/11/19 14:44 Temperature 97.9 F Pulse Rate 111 H Respiratory 16 Rate Blood Pressure 116/59 O2 Sat by Pulse 97 Oximetry Medical Decision Making - Lab Data Result diagrams: 05/11/19 15:45 05/11/19 15:45 <Toy Marie - Last Filed: 05/11/19 17:31> - Lab Data Result diagrams: 05/11/19 15:45 05/11/19 15:45 <Brigette Sy - Last Filed: 05/11/19 17:51> - Medical Decision Making Medical decision making; is a 8-year-old female sent from the doctor's office because of a combination of possible failure with 3+ pitting edema and possible worsening renal failure. Labs at this time show BNP of 21,800. Elevated creatinine 1.451 are normal is 0.9. GFR is 33 BUN is 37. Patient has history of A. fib on blood thinners with an INR 3.6. Hemoglobin hematocrit stable. Asians complains of fatigue decreased appetite and diarrhea. I discussed the case with Dr. Aparicio. She recommends rehydration and 50 mL of normal saline per hour, echocardiogram in the morning 20 mg of Lasix in the morning and Aaron wraps and elevate the legs. Dr. Marie (Toy Marie) Patient is an 88-year-old female sent from her doctor's office with complaints of fatigue, decreased appetite, diarrhea x 1 week. On exam patient has decreased breath sounds bilaterally, 2+ pitting edema bilateral lower legs. Labs at this time show BNP of 21,800. Elevated creatinine 1.451, GFR is 33 BUN is 37. Patient has history of A. fib on blood thinners with an INR 3.6. Hemoglobin, hematocrit stable. We are still awaiting UA and C. diff results. Case was discussed with Dr. Marie. Patient will be admitted and patient was accepted with Dr. Aparicio. Patient is in agreement with this plan. (Allegra Sy) - Lab Data Lab Results 05/11/19 05/11/19 05/11/19 Range/Units 15:45 15:45 15:45 WBC 8.0 (3.8-10.6) k/uL RBC 5.00 (3.80-5.40) m/uL Hgb 14.0 (11.4-16.0) gm/dL Hct 46.2 H (34.0-46.0) % MCV 92.5 (80.0-100.0) fL MCH 28.0 (25.0-35.0) pg MCHC 30.3 L (31.0-37.0) g/dL RDW 14.9 (11.5-15.5) % Plt Count 229 (150-450) k/uL Neutrophils % 72 % Lymphocytes % 18 % Monocytes % 6 % Eosinophils % 1 % Basophils % 1 % Neutrophils # 5.7 (1.3-7.7) k/uL Lymphocytes # 1.5 (1.0-4.8) k/uL Monocytes # 0.5 (0-1.0) k/uL Eosinophils # 0.0 (0-0.7) k/uL Basophils # 0.1 (0-0.2) k/uL Hypochromasia Moderate PT (9.0-12.0) sec INR (<1.2) APTT (22.0-30.0) sec Sodium 132 L (137-145) mmol/L Potassium 5.0 (3.5-5.1) mmol/L Chloride 93 L (98-107) mmol/L Carbon Dioxide 28 (22-30) mmol/L Anion Gap 11 mmol/L BUN 37 H (7-17) mg/dL Creatinine 1.45 H (0.52-1.04) mg/dL Est GFR (CKD-EPI)AfAm 38 (>60 ml/min/1.73 sqM) Est GFR (CKD-EPI)NonAf 33 (>60 ml/min/1.73 sqM) Glucose 109 H (74-99) mg/dL Plasma Lactic Acid Ravin 1.9 (0.7-2.0) mmol/L Calcium 8.4 (8.4-10.2) mg/dL Total Bilirubin 1.2 (0.2-1.3) mg/dL AST 66 H (14-36) U/L ALT 32 (9-52) U/L Alkaline Phosphatase 139 H (38-126) U/L NT-Pro-B Natriuret Pep pg/mL Total Protein 5.8 L (6.3-8.2) g/dL Albumin 3.2 L (3.5-5.0) g/dL 05/11/19 05/11/19 Range/Units 15:45 15:45 WBC (3.8-10.6) k/uL RBC (3.80-5.40) m/uL Hgb (11.4-16.0) gm/dL Hct (34.0-46.0) % MCV (80.0-100.0) fL MCH (25.0-35.0) pg MCHC (31.0-37.0) g/dL RDW (11.5-15.5) % Plt Count (150-450) k/uL Neutrophils % % Lymphocytes % % Monocytes % % Eosinophils % % Basophils % % Neutrophils # (1.3-7.7) k/uL Lymphocytes # (1.0-4.8) k/uL Monocytes # (0-1.0) k/uL Eosinophils # (0-0.7) k/uL Basophils # (0-0.2) k/uL Hypochromasia PT 34.2 H (9.0-12.0) sec INR 3.6 H (<1.2) APTT 31.1 H (22.0-30.0) sec Sodium (137-145) mmol/L Potassium (3.5-5.1) mmol/L Chloride (98-107) mmol/L Carbon Dioxide (22-30) mmol/L Anion Gap mmol/L BUN (7-17) mg/dL Creatinine (0.52-1.04) mg/dL Est GFR (CKD-EPI)AfAm (>60 ml/min/1.73 sqM) Est GFR (CKD-EPI)NonAf (>60 ml/min/1.73 sqM) Glucose (74-99) mg/dL Plasma Lactic Acid Arvin (0.7-2.0) mmol/L Calcium (8.4-10.2) mg/dL Total Bilirubin (0.2-1.3) mg/dL AST (14-36) U/L ALT (9-52) U/L Alkaline Phosphatase (38-126) U/L NT-Pro-B Natriuret Pep 36174 pg/mL Total Protein (6.3-8.2) g/dL Albumin (3.5-5.0) g/dL Disposition <Toy Marie - Last Filed: 05/11/19 17:31> Is patient prescribed a controlled substance at d/c from ED?: No Decision Date: 05/11/19 Decision Time: 17:44 <Brigette Sy - Last Filed: 05/11/19 17:51> Clinical Impression: Dehydration, Congestive heart failure Disposition: ADMITTED IP TO THIS HOSP Condition: Stable Instructions (If sedation given, give patient instructions): Acute Diarrhea (ED) Referrals: Haroon Morgan MD [Primary Care Provider] - 1-2 days
--- NOTE | 2019-05-11 16:27 | XR ---
EXAMINATION TYPE: XR chest 2V DATE OF EXAM: 05/11/2019 COMPARISON: 08/10/2018 and 04/27/2018 HISTORY: 88-year-old female with constant pain TECHNIQUE: PA and lateral views FINDINGS: Left anterior chest wall ICD generator with right ventricular lead. Heart mildly enlarged. Upper lung lucencies with hyperinflation. There are small bilateral pleural effusions. Markedly accentuated mid thoracic kyphosis with marked osteopenia and redemonstrated midthoracic vertebral compression deform ities. IMPRESSION: COPD. Cardiomegaly with small effusions and adjacent atelectasis and/or consolidation. Correlate for CHF as an etiology.
[2019-05-11] MEDS ORDERED: NALOXONE 0.4 MG/ML 1 ML VIAL IV PRN (17:39)
[2019-05-11] MEDS ORDERED: traMADol 50 MG TAB PO PRN (17:39)
[2019-05-11] MEDS ORDERED: ACETAMINOPHEN TAB 325 MG TAB PO PRN (17:39)
[2019-05-11] MEDS ORDERED: ONDANSETRON 4 MG/2 ML VIAL IVP PRN (17:39)
[2019-05-11] MEDS ORDERED: WARFARIN 1 MG TAB PO SCH (22:00)
[2019-05-11] MEDS: METOPROLOL TARTRATE 25 MG TAB PO SCH (22:04)
[2019-05-11] MEDS: SODIUM CHLORIDE 0.9% 1,000 ML IV SCH (22:05)
[2019-05-12 05:09] LABS: Appearance,Urine Cloudy (Clear); Bilirubin,Urine Negative (Negative); Blood,Urine Moderate (Negative); Color,Urine Yellow; Glucose,Urine (UA) Negative (Negative); Hyaline Casts,Urine 264 /lpf (0-2); Ketones,Urine Negative (Negative); Leukocyte Esterase,Urine Large (Negative); Mucus,Urine Rare /hpf; Nitrite,Urine Negative (Negative); Protein,Urine Trace (Negative); RBC,Urine 26 /hpf (0-5); Squamous Epithelial Cell,Urine 1 /hpf (0-4); Urobilinogen,Urine <2.0 mg/dL (<2.0)
[2019-05-12] MEDS: PARoxetine 10 MG TAB PO SCH (08:06)
[2019-05-12] MEDS: FERROUS SULFATE 325 MG TAB PO SCH (08:06)
[2019-05-12] MEDS: METOPROLOL TARTRATE 25 MG TAB PO SCH (08:06)
[2019-05-12 08:07] LABS: Basophils # (A) 0.1 k/uL (0-0.2); Basophils % (A) 1 %; Eosinophils # (A) 0.1 k/uL (0-0.7); Eosinophils % (A) 1 %; HCT 47.2 % (34.0-46.0); Hypochromasia Marked; Lymphocytes # (A) 2.2 k/uL (1.0-4.8); Lymphocytes % (A) 26 %; MCHC 29.8 g/dL (31.0-37.0); MCV 93.9 fL (80.0-100.0); Mean Platelet Volume 8.8; Monocytes # (A) 0.4 k/uL (0-1.0); Monocytes % (A) 4 %; Neutrophils # (A) 5.7 k/uL (1.3-7.7); Neutrophils % (A) 66 %; Platelet Count 214 k/uL (150-450); RBC 5.02 m/uL (3.80-5.40); RDW 14.8 % (11.5-15.5); WBC 8.6 k/uL (3.8-10.6)
[2019-05-12 08:08] LABS: INR 3.3 (<1.2); Prothrombin Time 31.8 sec (9.0-12.0)
[2019-05-12 08:28] LABS: Calcium 8.7 mg/dL (8.4-10.2)
[2019-05-12 08:42] LABS: Potassium 4.9 mmol/L (3.5-5.1)
[2019-05-12] MEDS ORDERED: FUROSEMIDE 10 MG/ML 2 ML VIAL IV ONE (09:00)
--- NOTE | 2019-05-12 10:56 | ECHOF ---
Referral Reason:CHF, fatigue MEASUREMENTS -------- HEIGHT: 157.5 cm WEIGHT: 47.6 kg BP: 106/64 RVIDd: 3.4 cm (< 3.3) IVSd: 1.2 cm (0.6 - 1.1) LVIDd: 2.8 cm (3.9 - 5.3) LVPWd: 1.1 cm (0.6 - 1.1) IVSs: 1.5 cm LVIDs: 2.1 cm LVPWs: 1.4 cm LA Diam: 4.5 cm (2.7 - 3.8) LAESV Index (A-L): 38.96 ml/m Ao Diam: 3.3 cm (2.0 - 3.7) AV Cusp: 1.6 cm (1.5 - 2.6) MV EXCURSION: 20.347 mm (> 18.000) MV EF SLOPE: 257 mm/s (70 - 150) EPSS: 0.4 cm AR PHT: 1320 ms RAP: 15.00 mmHg RVSP: 31.14 mmHg FINDINGS -------- Paced rhythm. This was a technically adequate study. The left ventricular size is normal. There is borderline concentric left ventricular hypertrophy. Overall left ventricular systolic function is moderately impaired with, an EF between 35 - 40 %. The right ventricle is mild to moderately enlarged. LA is moderately dilated 34-39 ml/m2 The right atrium is normal in size. Interatrial and interventricular septum intact. Aortic valve is trileaflet and is mildly thickened. There is moderate aortic regurgitation. The mitral valve leaflets are mildly thickened. Severe mitral regurgitation is present. Severe tricuspid regurgitation present. Right ventricular systolic pressure is not well quantified, probably high. Trace/mild (physiologic) pulmonic regurgitation. The aortic root size is normal. The inferior vena cava is dilated with no significant inspiratory collapse which is consistent estima lilia right atrial pressure of >15 mmHg. There is no pericardial effusion. CONCLUSIONS -------- 1. Paced rhythm. 2. This was a technically adequate study. 3. The left ventricular size is normal. 4. There is borderline concentric left ventricular hypertrophy. 5. LA is moderately dilated 34-39 ml/m2 6. The right atrium is normal in size. 7. Interatrial and interventricular septum intact. 8. Aortic valve is trileaflet and is mildly thickened. 9. There is moderate aortic regurgitation. 10. The mitral valve leaflets are mildly thickened. 11. Severe mitral regurgitation is present. 12. Severe tricuspid regurgitation present. 13. Right ventricular systolic pressure is normal at < 35 mmHg. 14. Trace/mild (physiologic) pulmonic regurgitation. 15. The aortic root size is normal. 16. The inferior vena cava is dilated with no significant inspiratory collapse which is consistent es timated right atrial pressure of >15 mmHg. 17. There is no pericardial effusion. CISSP: Lorraine Rojas RDCS
[2019-05-12] MEDS ORDERED: METOPROLOL TARTRATE 25 MG TAB PO ONE (11:00)
--- NOTE | 2019-05-12 12:06 | XR ---
EXAMINATION TYPE: XR abdomen 2V DATE OF EXAM: 05/12/2019 11:57 AM CLINICAL HISTORY: Fecal retention and diarrhea. TECHNIQUE: Single upright of the abdomen is obtained. COMPARISON: None. FINDINGS: Lung bases demonstrate trace pleural effusions. Cardiomediastinal silhouette is enlarged. Levoscolios is of the spine and diffuse osseous demineralization as well as extensive costochondral calcification s are seen. Right femoral arthroplasty is present and partially visualized left cardiac device. Exten sive atherosclerosis of the spine. Given patient body habitus the entirety of the abdomen is not included on the images. In the included portions of the abdomen no dilated large or small bowel is seen. Calcified structure in the pelvis l ikely represents a degenerative calcified uterine leiomyoma. IMPRESSION: Nonobstructive bowel gas pattern. Trace pleural effusions incidentally identified in the lower lungs.
[2019-05-12] MEDS: FUROSEMIDE 10 MG/ML 4 ML VIAL IV SCH ×2 (12:23→21:21)
--- NOTE | 2019-05-12 13:43 | US ---
EXAMINATION TYPE: US venous doppler duplex LE LT DATE OF EXAM: 05/12/2019 1:09 PM COMPARISON: NONE CLINICAL HISTORY: edema. Left leg swelling, exam done portable. SIDE PERFORMED: Left TECHNIQUE: The lower extremity deep venous system is examined utilizing real time linear array sonog julio with graded compression, doppler sonography and color-flow sonography. VESSELS IMAGED: External Iliac Vein (EIV) Common Femoral Vein Deep Femoral Vein Greater Saphenous Vein * Femoral Vein Popliteal Vein Small Saphenous Vein * Proximal Calf Veins (* superficial vessels) Grayscale, color doppler, spectral doppler imaging performed of the deep veins of the left lower extr emity. There is normal flow, compressibility, vascular waveforms. Left Leg: Appears negative for DVT IMPRESSION: No sonographic evidence of deep venous thrombosis within the left lower extremity.
--- NOTE | 2019-05-12 13:47 | P.HPIM ---
History of Present Illness H&P Date: 05/12/19 Chief Complaint: Weakness This is an 88-year-old female patient of Dr. Morgan and with Dr. Schofield with past medical history of paroxysmal atrial fibrillation, and is on Coumadin for anticoagulation. History also of hyperlipidemia, hypertension hypertensive cardiovascular disease, chronic diastolic heart failure, history of mitral and tricuspid regurgitation, pulmonary hypertension, prior nicotine dependence, sick sinus syndrome with prior pacemaker implantation, generalized anxiety disorder. Patient last saw Dr. Schofield 2 months ago and was taken off amiodarone and started on lisinopril. The patient states that she has been lethargic with lower extremity edema, not eating and drinking for the past 3-4 days. Daughter states that she had diarrhea the gradually started 1 week ago and continued to worsen. She has started to be incontinent of stool. No abdominal pain, no nausea or vomiting, no dysuria or increased frequency. She has not noted any blood in her urine or stool. She does have occasional cough. Patient did have a fall recently but she may have tripped on a chair or on the dogs. She denies any lightheadedness. She has been using a walker to ambulate. Most days, patient spends in the recliner and sleeps in a bed at nighttime. Patient has completed 2 courses of antibiotics for recent dental procedures. Patient presented to [facility] emergency center for evaluation. Patient was afebrile, heart rate 111, blood pressure 116/59. White count was 8, hemoglobin 14. BUN 37 creatinine 1.45, blood sugar 109, sodium 132, potassium 5.0, chloride 93, CO2 28. Lactic acid 1.9, AST 66, ALT 32, alkaline phosphatase 139. INR is 3.6, proBNP 21,800. Chest x-ray reveals COPD. Cardiomegaly with small effusions and adjacent atelectasis and/or consolidation. Correlate for heart failure as etiology. Patient was given 1 L of IV fluids. Patient placed on the [facility] floor and cardiology consult requested for tachycardia. Echocardiogram has been ordered. Stool for C. diff toxin and stool culture are uncollected. patient daughter states that she has not had any stools since admission. Echocardiogram reveals EF of 35-40%, borderline concentric left ventricular hypertrophy, moderate aortic regurgitation, severe mitral regurgitation, severe tricuspid regurgitation. Abdominal x-ray shows nonobstructive bowel gas pattern. Trace pleural effusions. Venous Doppler of the left lower extremity reveals Review of Systems Constitutional: Reports anorexia, Reports fatigue, Reports lethargy, Reports malaise, Reports poor appetite, Reports weakness, Denies chills, Denies fever Ears, nose, mouth and throat: Denies dysphagia, Denies nasal congestion, Denies nasal discharge, Denies vertigo Cardiovascular: Reports edema, Reports leg edema, Denies chest pain, Denies lightheadedness, Denies shortness of breath, Denies syncope Respiratory: Denies cough, Denies cough with sputum, Denies dyspnea, Denies excessive sputum, Denies hemoptysis, Denies home oxygen, Denies wheezing Gastrointestinal: Reports diarrhea, Reports loss of appetite, Denies abdominal pain, Denies nausea, Denies vomiting Genitourinary: Denies difficulty voiding, Denies dysuria, Denies urgency, Denies urinary frequency Musculoskeletal: Reports muscle weakness, Denies myalgias Integumentary: Denies pruritus, Denies rash, Denies wounds Neurological: Denies aphasia, Denies change in mentation, Denies change in speech, Denies confusion, Denies gait dysfunction, Denies numbness, Denies seizures, Denies weakness Psychiatric: Denies anxiety, Denies depression Endocrine: Denies fatigue, Denies weight change Past Medical History Past Medical History: Atrial Fibrillation, Heart Failure, CVA/TIA, Hyperlipidemia Additional Past Medical History / Comment(s): Cardiac murmur, bronchitis, iron d eficiency anemia, TIA, L breast cancer with surgery/chemo/radiation, bilateral raynauld's disease, bronchitis. History of Any Multi-Drug Resistant Organisms: None Reported Past Surgical History: Pacemaker Additional Past Surgical History / Comment(s): L mastectomy with lymph nodes removed, ectopic with 1 fallopian tube removed, bilateral cataract removals/lens implants. right hip replacement Past Anesthesia/Blood Transfusion Reactions: No Reported Reaction Additional Past Anesthesia/Blood Transfusion Reaction / Comment(s): Pt states she received blood with her ectopic without reaction. Type of Cardiac Device: Permanent Pacemaker Device Placement Date:: 2015 in [place] Past Psychological History: No Psychological Hx Reported Additional Psychological History / Comment(s): Pt resides with her daughter. They moved here from [place] 1 year ago. Pt uses a cane or wheeled walker to ambulate. Smoking Status: Former smoker Past Alcohol Use History: None Reported Additional Past Alcohol Use History / Comment(s): Pt states she smoked during the socially. No illicit drug use. No alcohol use. Past Drug Use History: None Reported - Past Family History Father Family Medical History: Coronary Artery Disease (CAD), Hypertension Additional Family Medical History / Comment(s): Father at age 86 from coronary artery disease. Mother Family Medical History: Dementia Additional Family Medical History / Comment(s): Mother had gallstones. The patient has 2 daughters and 1 son with no major medical problems. Medications and Allergies Home Medications Medication Instructions Recorded Confirmed Type PARoxetine [Paxil] 10 mg PO DAILY 08/28/17 05/11/19 History Furosemide [Lasix] 40 mg PO DAILY #60 tab 09/22/18 05/11/19 Rx Metoprolol Tartrate [Lopressor] 25 mg PO TID #90 tab 09/22/18 05/11/19 Rx Ferrous Sulfate [Feosol] 325 mg PO DAILY 05/11/19 05/11/19 History Lisinopril [Zestril] 5 mg PO DAILY 05/11/19 05/11/19 History Simvastatin [Zocor] 20 mg PO HS 05/11/19 05/11/19 History Warfarin [Coumadin] 0.5 mg PO TUTHSA 05/11/19 05/11/19 History Warfarin [Coumadin] 1 mg PO SUMOWEFR 05/11/19 05/11/19 History Allergies Allergy/AdvReac Type Severity Reaction Status Date / Time No Known Allergies Allergy Verified 05/11/19 15:27 Physical Exam Vitals: Vital Signs Temp Pulse Pulse Resp BP BP BP 05/12/19 07:00 98.0 F 113 H 16 109/76 05/12/19 00:04 97.7 F 95 16 106/64 05/11/19 18:37 97.5 F L 109 H 16 111/73 05/11/19 18:00 92 16 114/70 05/11/19 14:44 97.9 F 111 H 16 116/59 Pulse Ox 05/12/19 07:00 97 05/12/19 00:04 94 L 05/11/19 18:37 96 05/11/19 18:00 98 05/11/19 14:44 97 Intake and Output 05/11/19 05/12/19 05/12/19 22:59 06:59 14:59 Intake Total 600 240 Output Total 400 200 Balance 200 40 Intake: Oral 600 240 Output: Urine 400 200 Other: Voiding Method Toilet # Voids 2 1 Weight 48.363 kg - Constitutional General appearance: no acute distress, thin - EENT Eyes: anicteric sclerae, EOMI, PERRLA, no ptosis, no scleral icterus, normal appearance ENT: hard of hearing, NA/AT, normal oropharynx, no thrush Ears: bilateral: normal - Neck Neck: no lymphadenopathy, normal ROM, no rigidity, no stridor, no thyromegaly Carotids: bilateral: upstroke normal Thyroid: bilateral: normal size - Respiratory Respiratory: bilateral: diminished, negative: dullness, rales, rhonchi, wheezing, prolonged expiration - Cardiovascular Rhythm: irregularly irregular Heart sounds: normal: S1, S2 Abnormal Heart Sounds: systolic murmur Mild pedal edema on the right, increased pedal edema on the left - Gastrointestinal General gastrointestinal: normal bowel sounds, soft, no splenomegaly, no tenderness, no umbilical hernia, no ventral hernia - Integumentary Integumentary: normal, normal turgor - Neurologic Neurologic: CNII-XII intact - Musculoskeletal Musculoskeletal: generalized weakness, strength equal bilaterally - Psychiatric Psychiatric: A&O x's 3, appropriate affect, intact judgment & insight Results CBC & Chem 7: 05/12/19 07:43 05/12/19 07:43 Labs: Abnormal Lab Results - Last 24 Hours (Table) 05/11/19 05/11/19 05/11/19 Range/Units 15:45 15:45 15:45 Hct 46.2 H (34.0-46.0) % MCHC 30.3 L (31.0-37.0) g/dL PT 34.2 H (9.0-12.0) sec INR 3.6 H (<1.2) APTT 31.1 H (22.0-30.0) sec Sodium 132 L (137-145) mmol/L Chloride 93 L (98-107) mmol/L BUN 37 H (7-17) mg/dL Creatinine 1.45 H (0.52-1.04) mg/dL Glucose 109 H (74-99) mg/dL AST 66 H (14-36) U/L Alkaline Phosphatase 139 H (38-126) U/L Total Protein 5.8 L (6.3-8.2) g/dL Albumin 3.2 L (3.5-5.0) g/dL Urine Appearance (Clear) Urine Protein (Negative) Urine Blood (Negative) Ur Leukocyte Esterase (Negative) Urine RBC (0-5) /hpf Urine WBC (0-5) /hpf Urine WBC Clumps (None) /hpf Hyaline Casts (0-2) /lpf Urine Mucus (None) /hpf 05/12/19 05/12/19 05/12/19 Range/Units 04:30 07:43 07:43 Hct 47.2 H (34.0-46.0) % MCHC 29.8 L (31.0-37.0) g/dL PT (9.0-12.0) sec INR (<1.2) APTT (22.0-30.0) sec Sodium 133 L (137-145) mmol/L Chloride (98-107) mmol/L BUN 36 H (7-17) mg/dL Creatinine 1.45 H (0.52-1.04) mg/dL Glucose (74-99) mg/dL AST (14-36) U/L Alkaline Phosphatase (38-126) U/L Total Protein (6.3-8.2) g/dL Albumin (3.5-5.0) g/dL Urine Appearance Cloudy H (Clear) Urine Protein Trace H (Negative) Urine Blood Moderate H (Negative) Ur Leukocyte Esterase Large H (Negative) Urine RBC 26 H (0-5) /hpf Urine WBC >182 H (0-5) /hpf Urine WBC Clumps Few H (None) /hpf Hyaline Casts 264 H (0-2) /lpf Urine Mucus Rare H (None) /hpf 05/12/19 Range/Units 07:43 Hct (34.0-46.0) % MCHC (31.0-37.0) g/dL PT 31.8 H (9.0-12.0) sec INR 3.3 H (<1.2) APTT (22.0-30.0) sec Sodium (137-145) mmol/L Chloride (98-107) mmol/L BUN (7-17) mg/dL Creatinine (0.52-1.04) mg/dL Glucose (74-99) mg/dL AST (14-36) U/L Alkaline Phosphatase (38-126) U/L Total Protein (6.3-8.2) g/dL Albumin (3.5-5.0) g/dL Urine Appearance (Clear) Urine Protein (Negative) Urine Blood (Negative) Ur Leukocyte Esterase (Negative) Urine RBC (0-5) /hpf Urine WBC (0-5) /hpf Urine WBC Clumps (None) /hpf Hyaline Casts (0-2) /lpf Urine Mucus (None) /hpf Thrombosis Risk Factor Assmnt - DVT/VTE Prophylaxis DVT/VTE Prophylaxis: Pharmacologic Prophylaxis ordered - Choose All That Apply Each Factor Represents 1 point: Swollen legs (current) Each Risk Factor Represents 3 Points: Age 75 years or older Other congenital or acquired thrombophilia - If yes, enter type in comment: No Thrombosis Risk Factor Assessment Total Risk Factor Score: 4 Thrombosis Risk Factor Assessment Level: Moderate Risk Assessment and Plan Plan: 1. Acute kidney injury secondary to diarrhea and diuresing. Lasix and lisinopril placed on hold. Patient is status post 1 L of IV fluid. Continue normal saline at 50 mL per hour. Avoid nephrotoxic agents. 2. Acute on chronic diastolic heart failure. Continue Lopressor 25 mg 3 times daily, hold lisinopril. Cardiology is started patient on Lasix 40 mg IV every 12 hours. 3. Paroxysmal atrial fibrillation with sick sinus syndrome and underlying permanent pacemaker. Continue Lopressor 25 mg twice daily. Coumadin on hold du e to coagulopathy. 4. Coagulopathy secondary to Coumadin use and diarrhea. Coumadin is on hold, p harmacy to dose. 5. Acute urinary tract infection. Patient started on Rocephin. Await urine culture. 6. Acute diarrhea. Stool specimen to be sent for C. difficile colitis. Patient recently completed 2 courses of antibiotics for dental procedures. Patient started on lactobacillus. 7. Hypertension and hypertensive perivascular disease. Continue patient on Lopressor 25 mg orally twice every day. Hold lisinopril. 8. Hyperlipidemia. Continue Zocor. 9. Generalized anxiety disorder. Continue Paxil 20 mg orally once every day. 10. Chronic kidney disease stage II. 11. DVT prophylaxis. Already on Coumadin. 12. GI prophylaxis. Continue PPI. Admitted to inpatient. Estimated length of stay 2 midnights. Medical debility. Physical therapy evaluation . CODE STATUS: No code per patient wishes. Discharge plan: To be determined. PT and OT added. Impression and plan of care have been directed as dictated by the signing physician. Raven Shaw nurse practitioner acting as scribe for signing physician.
--- NOTE | 2019-05-12 14:04 | P.CRDCN ---
History of Present Illness History of present illness: This is a pleasant 88 showed female past medical history significant for dyslipidemia, hypertension, paroxysmal atrial fibrillation on long-term anticoagulation, nonrheumatic aortic valve insufficiency, permanent pacemaker implantation 2016 secondary to sick sinus syndrome and history of TIA in the past. She follows with Dr. Schofield in the office. We have been asked to see her in consultation secondary to a-fib. She states for the last 3-5 days she has felt extremely weak and tired, had no appetite, poor oral intake and for the last 3 nights has had diarrhea. She went and saw her PCP and was sent to the hospital for admission for dehydration. Previous echocardiogram obtained August 2018 revealed preserved LV systolic function with ejection fraction 55-60%, moderate aortic regurgitation, moderate to severe mitral regurgitation, moderate tricuspid regurgitation and moderate pulmonary hypertension with RVSP 53 mmHg. Echo done today has changed, however possibly secondary to atrial fibrillation. Revealing EF 35-40%, severe MR, severe TR and unable to clearly quantify RV pressure. She is seen and examined sitting up in bed in no acute distress. She continues to feel weak and has only taken a few bites of breakfast. She cannot feel her heart racing despite it going around 120 bpm. EKG reveals atrial fibrillation with rapid ventricular response. Chest x-ray reveals COPD, cardiomegaly and small effusions. Left lower extremity duplex negative for DVT. Abdominal x-ray is negative for obstructive gas pattern. Laboratory data reviewed, WBC 8.6, hemoglobin 14, platelets 214, INR 3.3, sodium 133, potassium 4.9, creatinine 1.45, proBNP 21,800. Current cardiac medications include Lasix 40 mg daily, lisinopril 5 mg daily, Lopressor 25 mg 3 times a day, simvastatin 20 mg daily and Coumadin. At the time of my exam: CONSTITUTIONAL: Denies fever. Denies chills. Complains of overall weakness. EYES: Denies blurred vision. Denies vision changes. Denies eye pain. EARS, NOSE, MOUTH & THROAT: Denies headache. Denies sore throat. Denies ear pain. CARDIOVASCULAR: Denies chest pain. Denies shortness of breath. Denies orthopnea. Denies PND. Denies palpitations. RESPIRATORY: Denies cough. GASTROINTESTINAL: Denies abdominal pain. Denies diarrhea. Denies constipation. D enies nausea. Denies vomiting. MUSCULOSKELETAL: Denies myalgias. INTEGUMENTARY: Denies pruitis. Denies rash. NEUROLOGIC: Denies numbness. Denies tingling. Denies weakness. PSYCHIATRIC: Denies anxiety. Denies depression. ENDOCRINE: Denies fatigue. Denies weight change. Denies polydipsia. Denies polyu may. GENITOURINARY: Denies burning, hematuria or urgency with micturation. HEMATOLOGIC: Denies history of anemia. Denies bleeding. Blood pressure 108/72 heart rate 113 afebrile maintaining oxygen saturation on room air GENERAL: This is a 88-year-old female in no apparent distress at the time of my examination. HEENT: Head is atraumatic, normocephalic. Pupils are equal, round. Sclerae anicteric. Conjunctivae are clear. Mucous membranes of the mouth are moist. Neck is supple. There is no jugular venous distention. No carotid bruit is heard. LUNGS: Clear to auscultation no wheezes, rales or rhonchi. No chest wall tenderness is noted on palpation or with deep breathing. HEART: Irregular rate and rhythm with systolic ejection murmur at the left sternal border, no rubs or gallops. S1 and S2 heard. ABDOMEN: Soft, nontender. Bowel sounds are heard. No organomegaly noted. EXTREMITIES: No evidence of peripheral edema and no calf tenderness noted. VASCULAR: Radial and dorsalis pedis pulses palpated, no evidence of clubbing. NEUROLOGIC: Patient is awake, alert and oriented x3. ASSESSMENT Atrial fibrillation with rapid ventricular response Acute on chronic systolic and diastolic heart failure. Predominantly right sided heart failure with impaired LV noted while in a-fib RVR Supratherapeutic INR Acute kidney injury Urinary tract infection Hypertension Dyslipidemia s/p permanent pacemaker implantation secondary to sick sinus syndrome 2016 in [place] Valvular heart disease PLAN Diurese her with IV lasix 40 mg BID for today. Will transition to PO tomorrow. Increase lopressor to 50 mg TID. Give additional dose of 25 now. Resume lisinopril tomorrow. Check electrolytes and renal function in the morning. Document accurate intake and output along with daily weights. Apply ekg monitor. Thank you kindly for this consultation. Nurse Practitioner note has been reviewed, I agree with a documented findings and plan of care. Patient was seen and examined. Past Medical History Past Medical History: Atrial Fibrillation, Heart Failure, CVA/TIA, Hyperlipidemia Additional Past Medical History / Comment(s): Cardiac murmur, bronchitis, iron deficiency anemia, TIA, L breast cancer with surgery/chemo/radiation, bilateral raynauld's disease, bronchitis. History of Any Multi-Drug Resistant Organisms: None Reported Past Surgical History: Pacemaker Additional Past Surgical History / Comment(s): L mastectomy with lymph nodes removed, ectopic with 1 fallopian tube removed, bilateral cataract removals/lens implants. right hip replacement Past Anesthesia/Blood Transfusion Reactions: No Reported Reaction Additional Past Anesthesia/Blood Transfusion Reaction / Comment(s): Pt states she received blood with her ectopic without reaction. Type of Cardiac Device: Permanent Pacemaker Device Placement Date:: 2015 in [place] Past Psychological History: No Psychological Hx Reported Additional Psychological History / Comment(s): Pt resides with her daughter. They moved here from [place] 1 year ago. Pt uses a cane or wheeled walker to ambulate. Smoking Status: Former smoker Past Alcohol Use History: None Reported Additional Past Alcohol Use History / Comment(s): Pt states she smoked during the socially. Past Drug Use History: None Reported - Past Family History Father Family Medical History: Coronary Artery Disease (CAD), Hypertension Mother Family Medical History: Dementia Additional Family Medical History / Comment(s): Mother had gallstones.noly child, 2 daughter an d son with no medical problems Medications and Allergies Home Medications Medication Instructions Recorded Confirmed Type PARoxetine [Paxil] 10 mg PO DAILY 08/28/17 05/11/19 History Furosemide [Lasix] 40 mg PO DAILY #60 tab 09/22/18 05/11/19 Rx Metoprolol Tartrate [Lopressor] 25 mg PO TID #90 tab 09/22/18 05/11/19 Rx Ferrous Sulfate [Feosol] 325 mg PO DAILY 05/11/19 05/11/19 History Lisinopril [Zestril] 5 mg PO DAILY 05/11/19 05/11/19 History Simvastatin [Zocor] 20 mg PO HS 05/11/19 05/11/19 History Warfarin [Coumadin] 0.5 mg PO TUTHSA 05/11/19 05/11/19 History Warfarin [Coumadin] 1 mg PO SUMOWEFR 05/11/19 05/11/19 History Allergies Allergy/AdvReac Type Severity Reaction Status Date / Time No Known Allergies Allergy Verified 05/11/19 15:27 Physical Exam Vitals: Vital Signs Temp Pulse Pulse Resp BP BP BP 05/12/19 07:00 98.0 F 113 H 16 109/76 05/12/19 00:04 97.7 F 95 16 106/64 05/11/19 18:37 97.5 F L 109 H 16 111/73 05/11/19 18:00 92 16 114/70 05/11/19 14:44 97.9 F 111 H 16 116/59 Pulse Ox 05/12/19 07:00 97 05/12/19 00:04 94 L 05/11/19 18:37 96 05/11/19 18:00 98 05/11/19 14:44 97 Intake and Output 05/11/19 05/12/19 05/12/19 22:59 06:59 14:59 Intake Total 600 240 Output Total 400 200 Balance 200 40 Intake: Oral 600 240 Output: Urine 400 200 Other: Voiding Method Toilet # Voids 2 1 Weight 48.363 kg Results 05/12/19 07:43 05/12/19 07:43 Cardiac Enzymes 05/11/19 Range/Units 15:45 AST 66 H (14-36) U/L Coagulation 05/11/19 05/12/19 Range/Units 15:45 07:43 PT 34.2 H 31.8 H (9.0-12.0) sec APTT 31.1 H (22.0-30.0) sec CBC 05/11/19 05/12/19 Range/Units 15:45 07:43 WBC 8.0 8.6 (3.8-10.6) k/uL RBC 5.00 5.02 (3.80-5.40) m/uL Hgb 14.0 14.0 (11.4-16.0) gm/dL Hct 46.2 H 47.2 H (34.0-46.0) % Plt Count 229 214 (150-450) k/uL Comprehensive Metabolic Panel 05/11/19 Range/Units 15:45 Sodium 132 L (137-145) mmol/L Potassium 5.0 (3.5-5.1) mmol/L Chloride 93 L (98-107) mmol/L Carbon Dioxide 28 (22-30) mmol/L BUN 37 H (7-17) mg/dL Creatinine 1.45 H (0.52-1.04) mg/dL Glucose 109 H (74-99) mg/dL Calcium 8.4 (8.4-10.2) mg/dL AST 66 H (14-36) U/L ALT 32 (9-52) U/L Alkaline Phosphatase 139 H (38-126) U/L Total Protein 5.8 L (6.3-8.2) g/dL Albumin 3.2 L (3.5-5.0) g/dL Current Medications Generic Name Dose Route Start Last Admin Trade Name Freq PRN Reason Stop Dose Admin Acetaminophen 650 mg 05/11/19 17:39 Tylenol Tab PO Q6HR PRN Mild Pain or Fever > 100.5 Atorvastatin Calcium 10 mg 05/12/19 21:00 Lipitor PO HS KILEY Ferrous Sulfate 325 mg 05/12/19 09:00 05/12/19 08:06 Feosol PO 325 mg DAILY KILEY Administration Sodium Chloride 1,000 mls @ 50 mls/hr 05/11/19 17:45 05/11/19 22:05 Saline 0.9% IV 50 mls/hr .Q20H KILEY Administration Metoprolol Tartrate 25 mg 05/11/19 22:00 05/12/19 08:06 Lopressor PO 25 mg TID KILEY Administration Miscellaneous Information 1 each 05/12/19 06:24 Coumadin Per Pharmacy MISCELLANE DIRECTED PRN Per Protocol Naloxone HCl 0.2 mg 05/11/19 17:39 Narcan IV Q2M PRN Opioid Reversal Ondansetron HCl 4 mg 05/11/19 17:39 Zofran IVP Q8HR PRN Nausea And Vomiting Paroxetine HCl 10 mg 05/12/19 09:00 05/12/19 08:06 Paxil PO 10 mg DAILY KILEY Administration Tramadol HCl 50 mg 05/11/19 17:39 Ultram PO Q6H PRN Moderate Pain Intake and Output 05/11/19 05/12/19 05/12/19 22:59 06:59 14:59 Intake Total 600 240 Output Total 400 200 Balance 200 40 Intake: Oral 600 240 Output: Urine 400 200 Other: Voiding Method Toilet # Voids 2 1 Weight 48.363 kg 05/12/19 07:43 05/11/19 15:45
[2019-05-12] MEDS: SODIUM CHLORIDE 0.9% 1,000 ML IV SCH (16:00)
[2019-05-12] MEDS: METOPROLOL TARTRATE 50 MG TAB PO SCH ×2 (17:43→21:21)
[2019-05-12] MEDS ORDERED: WARFARIN 0.5 MG TAB PO ONE (18:00)
[2019-05-12] MEDS: ATORVASTATIN 10 MG TAB PO SCH (21:21)
[2019-05-12] MEDS: LACTOBACILLUS ACIDOPH & BULGAR 1 EACH PACKET PO SCH (21:21)
[2019-05-12] MEDS ORDERED: WARFARIN 1 MG TAB PO SCH (21:47)
[2019-05-12 22:27] LABS: Albumin 3.2 g/dL (3.5-5.0); Calcium 8.8 mg/dL (8.4-10.2); Magnesium 2.3 mg/dL (1.6-2.3); Potassium 4.4 mmol/L (3.5-5.1); Total Bilirubin 1.3 mg/dL (0.2-1.3); Total Protein 5.8 g/dL (6.3-8.2)
[2019-05-13 00:12] LABS: Glucose,Whole Blood 73 mg/dL (75-99)
[2019-05-13 07:20] LABS: Prothrombin Time 38.5 sec (9.0-12.0)
[2019-05-13 07:31] LABS: Calcium 8.2 mg/dL (8.4-10.2)
[2019-05-13 07:34] LABS: Potassium 4.5 mmol/L (3.5-5.1)
[2019-05-13] MEDS ORDERED: LISINOPRIL 5 MG TAB PO SCH (09:00)
[2019-05-13] MEDS: FERROUS SULFATE 325 MG TAB PO SCH (10:24)
[2019-05-13] MEDS: LACTOBACILLUS ACIDOPH & BULGAR 1 EACH PACKET PO SCH ×2 (10:24→22:44)
[2019-05-13] MEDS: FAMOTIDINE 20 MG TAB PO SCH (10:24)
[2019-05-13] MEDS: FUROSEMIDE 10 MG/ML 4 ML VIAL IV SCH (10:25)
[2019-05-13] MEDS: PARoxetine 10 MG TAB PO SCH (10:25)
[2019-05-13] MEDS: METOPROLOL TARTRATE 50 MG TAB PO SCH ×3 (10:25→22:44)
[2019-05-13] MEDS: SODIUM CHLORIDE 0.9% 1,000 ML IV SCH (10:26)
--- NOTE | 2019-05-13 14:09 | P.PN ---
Subjective This is a pleasant 88 showed female past medical history significant for dyslipidemia, hypertension, paroxysmal atrial fibrillation on long-term anticoagulation, nonrheumatic aortic valve insufficiency, permanent pacemaker implantation 2016 secondary to sick sinus syndrome and history of TIA in the past. She follows with Dr. Schofield in the office. We have been asked to see her in consultation secondary to a-fib. She states for the last 3-5 days she has felt extremely weak and tired, had no appetite, poor oral intake and for the last 3 nights has had diarrhea. She went and saw her PCP and was sent to the hospital for admission for dehydration. Previous echocardiogram obtained August 2018 revealed preserved LV systolic function with ejection fraction 55-60%, moderate aortic regurgitation, moderate to severe mitral regurgitation, moderate tricuspid regurgitation and moderate pulmonary hypertension with RVSP 53 mmHg. Echo done today has changed, however possibly secondary to atrial fibrillation. Revealing EF 35-40%, severe MR, severe TR and unable to clearly quantify RV pressure. She is seen and examined sitting up in bed in no acute distress. She continues to feel weak and has only taken a few bites of breakfast. She cannot feel her heart racing despite it going around 120 bpm. EKG reveals atrial fibrillation with rapid ventricular response. Chest x-ray reveals COPD, cardiomegaly and small effusions. Left lower extremity duplex negative for DVT. Abdominal x-ray is negative for obstructive gas pattern. Laboratory data reviewed, WBC 8.6, hemoglobin 14, platelets 214, INR 3.3, sodium 133, potassium 4.9, creatinine 1.45, proBNP 21,800. Current cardiac medications include Lasix 40 mg daily, lisinopril 5 mg daily, L opressor 25 mg 3 times a day, simvastatin 20 mg daily and Coumadin. 05/13/2019 Pt is seen and examined sitting up in bed in no acute distress. She states overall she feels much better than yesterday. She is eating and has an improved appetite. She denies chest pain, no significant shortness of breath, dizziness or palpitations. Blood pressure 116/67 heart rate is fluctuating from 60's-120. Laboratory data reviewed, INR 4.0, sodium 133, potassium 4.5, creatinine 1.59. Lisinopril has been held per primary due to renal function and coumadin was held last night due to supra-therapeutic INR. GENERAL: This is a 88-year-old female in no apparent distress at the time of my examination. HEENT: Head is atraumatic, normocephalic. Pupils are equal, round. Sclerae anicteric. Conjunctivae are clear. Mucous membranes of the mouth are moist. Neck is supple. There is no jugular venous distention. No carotid bruit is heard. LUNGS: Clear to auscultation no wheezes, rales or rhonchi. No chest wall tenderness is noted on palpation or with deep breathing. HEART: Irregular rate and rhythm with systolic ejection murmur at the left sternal border, no rubs or gallops. S1 and S2 heard. EXTREMITIES: No evidence of peripheral edema and no calf tenderness noted. ASSESSMENT Atrial fibrillation with rapid ventricular response Acute on chronic systolic and diastolic heart failure. Predominantly right sided heart failure with impaired LV noted while in a-fib RVR Supratherapeutic INR Acute kidney injury Urinary tract infection Hypertension Dyslipidemia s/p permanent pacemaker implantation secondary to sick sinus syndrome 2016 in [place] Valvular heart disease PLAN Transition to oral diuretics, lasix 20 mg at bedtime and 40 mg in the AM. Initiate on verapamil 40 mg TID for better heart rate control. Continue to hold coumadin tonight, dosing per pharmacy. Follow up with Dr. Schofield upon discharge. Nurse Practitioner note has been reviewed, I agree with a documented findings and plan of care. Patient was seen and examined. Objective - Vital Signs Vital signs: Vital Signs Temp 97.7 F 05/13/19 07:00 Pulse 63 05/13/19 08:40 Resp 16 05/13/19 08:40 BP 116/67 05/13/19 07:00 Pulse Ox 92 L 05/13/19 07:00 Intake & Output 05/12/19 05/13/19 05/13/19 18:59 06:59 18:59 Intake Total 350 100 Output Total 200 Balance 350 -100 Weight 48.363 kg Intake: Oral 350 100 Output: Urine 200 Other: Voiding Method Toilet Toilet # Voids 1 1 - Labs CBC & Chem 7: 05/12/19 07:43 05/13/19 06:47 Labs: Abnormal Lab Results - Last 24 Hours (Table) 05/12/19 05/13/19 05/13/19 Range/Units 21:38 00:10 06:47 PT 38.5 H (9.0-12.0) sec INR 4.0 H (<1.2) Sodium 133 L (137-145) mmol/L Chloride 96 L (98-107) mmol/L BUN 38 H (7-17) mg/dL Creatinine 1.56 H (0.52-1.04) mg/dL Glucose 67 L (74-99) mg/dL POC Glucose (mg/dL) 73 L (75-99) mg/dL Calcium (8.4-10.2) mg/dL AST 51 H (14-36) U/L Alkaline Phosphatase 155 H (38-126) U/L Total Protein 5.8 L (6.3-8.2) g/dL Albumin 3.2 L (3.5-5.0) g/dL 05/13/19 Range/Units 06:47 PT (9.0-12.0) sec INR (<1.2) Sodium 133 L (137-145) mmol/L Chloride (98-107) mmol/L BUN 39 H (7-17) mg/dL Creatinine 1.59 H (0.52-1.04) mg/dL Glucose 51 L (74-99) mg/dL POC Glucose (mg/dL) (75-99) mg/dL Calcium 8.2 L (8.4-10.2) mg/dL AST (14-36) U/L Alkaline Phosphatase (38-126) U/L Total Protein (6.3-8.2) g/dL Albumin (3.5-5.0) g/dL Microbiology - Last 24 Hours (Table) 05/12/19 04:30 Urine Culture - Preliminary Urine,Voided Gram Neg Bacilli 05/12/19 18:15 Stool Culture - Preliminary Stool
--- NOTE | 2019-05-13 14:22 | P.PN ---
Subjective Progress Note Date: 05/13/19 This is an 88-year-old female patient of Dr. Morgan and with Dr. Schofield with past medical history of paroxysmal atrial fibrillation, and is on Coumadin for anticoagulation. History also of hyperlipidemia, hypertension hypertensive cardiovascular disease, chronic diastolic heart failure, history of mitral and tricuspid regurgitation, pulmonary hypertension, prior nicotine dependence, sick sinus syndrome with prior pacemaker implantation, generalized anxiety disorder. Patient last saw Dr. Schofield 2 months ago and was taken off amiodarone and started on lisinopril. The patient states that she has been lethargic with lower extremity edema, not eating and drinking for the past 3-4 days. Daughter states that she had diarrhea the gradually started 1 week ago and continued to worsen. She has started to be incontinent of stool. No abdominal pain, no nausea or vomiting, no dysuria or increased frequency. She has not noted any blood in her urine or stool. She does have occasional cough. Patient did have a fall recently but she may have tripped on a chair or on the dogs. She denies any lightheadedness. She has been using a walker to ambulate. Most days, patient spends in the recliner and sleeps in a bed at nighttime. Patient has completed 2 courses of antibiotics for recent dental procedures. Patient presented to [facility] emergency center for evaluation. Patient was afebrile, heart rate 111, blood pressure 116/59. White count was 8, hemoglobin 14. BUN 37 creatinine 1.45, blood sugar 109, sodium 132, potassium 5.0, chloride 93, CO2 28. Lactic acid 1.9, AST 66, ALT 32, alkaline phosphatase 139. INR is 3.6, proBNP 21,800. Chest x-ray reveals COPD. Cardiomegaly with small effusions and adjacent atelectasis and/or consolidation. Correlate for heart failure as etiology. Patient was given 1 L of IV fluids. Patient placed on the [facility] floor and cardiology consult requested for tachycardia. Echocardiogram has been ordered. Stool for C. diff toxin and stool culture are uncollected. patient daughter states that she has not had any stools since admission. Echocardiogram reveals EF of 35-40%, borderline concentric left ventricular hypertrophy, moderate aortic regurgitation, severe mitral regurgitation, severe tricuspid regurgitation. Abdominal x-ray shows nonobstructive bowel gas pattern. Trace pleural effusions. Venous Doppler of the left lower extremity reveals no evidence of DVT in the left lower extremity. 05/13: Patient has been afebrile, heart rate 63, blood pressure 116/67, pulse ox 92% on room air. INR today is at 4.0. BUN 39 creatinine 1.59, sodium 133, calcium 8.2. C. difficile toxin negative. Stool culture and urine culture in progress. Patient denies having any diarrhea today. We will plan to decrease IV Lasix to daily and plan for oral in the morning. IV fluids will be discontinued in the morning. Physical therapy is recommended home. Plan to monitor overnight and possible discharge the next 24-48 hours. Objective - Vital Signs Vital signs: Vital Signs Temp 97.7 F 05/13/19 07:00 Pulse 63 05/13/19 07:00 Resp 16 05/13/19 07:00 BP 116/67 05/13/19 07:00 Pulse Ox 92 L 05/13/19 07:00 Intake & Output 05/12/19 05/13/19 05/13/19 18:59 06:59 18:59 Intake Total 350 Balance 350 Weight 48.363 kg Intake: Oral 350 Other: Voiding Method Toilet # Voids 1 - Exam Review of Systems Constitutional: Reports anorexia, Reports fatigue, Reports lethargy, Reports malaise, Reports poor appetite, Reports weakness, Denies chills, Denies fever Ears, nose, mouth and throat: Denies dysphagia, Denies nasal congestion, Denies nasal discharge, Denies vertigo Cardiovascular: Reports edema, Reports leg edema, Denies chest pain, Denies lightheadedness, Denies shortness of breath, Denies syncope Respiratory: Denies cough, Denies cough with sputum, Denies dyspnea, Denies excessive sputum, Denies hemoptysis, Denies home oxygen, Denies wheezing Gastrointestinal: Denies diarrhea, Reports loss of appetite, Denies abdominal pain, Denies nausea, Denies vomiting Genitourinary: Denies difficulty voiding, Denies dysuria, Denies urgency, Denies urinary frequency Musculoskeletal: Reports muscle weakness, Denies myalgias Integumentary: Denies pruritus, Denies rash, Denies wounds Neurological: Denies aphasia, Denies change in mentation, Denies change in speech, Denies confusion, Denies gait dysfunction, Denies numbness, Denies seizures, Denies weakness Psychiatric: Denies anxiety, Denies depression Endocrine: Denies fatigue, Denies weight change - Constitutional General appearance: no acute distress, thin - EENT Eyes: anicteric sclerae, EOMI, PERRLA, no ptosis, no scleral icterus, normal appearance ENT: hard of hearing, NA/AT, normal oropharynx, no thrush Ears: bilateral: normal - Neck Neck: no lymphadenopathy, normal ROM, no rigidity, no stridor, no thyromegaly Carotids: bilateral: upstroke normal Thyroid: bilateral: normal size - Respiratory Respiratory: bilateral: diminished, negative: dullness, rales, rhonchi, wheezing, prolonged expiration - Cardiovascular Rhythm: irregularly irregular Heart sounds: normal: S1, S2 Abnormal Heart Sounds: systolic murmur No pedal edema bilaterally - Gastrointestinal General gastrointestinal: normal bowel sounds, soft, no splenomegaly, no tenderness, no umbilical hernia, no ventral hernia - Integumentary Integumentary: normal, normal turgor - Neurologic Neurologic: CNII-XII intact - Musculoskeletal Musculoskeletal: generalized weakness, strength equal bilaterally - Psychiatric Psychiatric: A&O x's 3, appropriate affect, intact judgment & insight - Labs CBC & Chem 7: 05/12/19 07:43 05/13/19 06:47 Labs: Abnormal Lab Results - Last 24 Hours (Table) 05/12/19 05/12/19 05/12/19 Range/Units 07:43 07:43 07:43 Hct 47.2 H (34.0-46.0) % MCHC 29.8 L (31.0-37.0) g/dL PT 31.8 H (9.0-12.0) sec INR 3.3 H (<1.2) Sodium 133 L (137-145) mmol/L Chloride (98-107) mmol/L BUN 36 H (7-17) mg/dL Creatinine 1.45 H (0.52-1.04) mg/dL Glucose (74-99) mg/dL POC Glucose (mg/dL) (75-99) mg/dL Calcium (8.4-10.2) mg/dL AST (14-36) U/L Alkaline Phosphatase (38-126) U/L Total Protein (6.3-8.2) g/dL Albumin (3.5-5.0) g/dL 05/12/19 05/13/19 05/13/19 Range/Units 21:38 00:10 06:47 Hct (34.0-46.0) % MCHC (31.0-37.0) g/dL PT 38.5 H (9.0-12.0) sec INR 4.0 H (<1.2) Sodium 133 L (137-145) mmol/L Chloride 96 L (98-107) mmol/L BUN 38 H (7-17) mg/dL Creatinine 1.56 H (0.52-1.04) mg/dL Glucose 67 L (74-99) mg/dL POC Glucose (mg/dL) 73 L (75-99) mg/dL Calcium (8.4-10.2) mg/dL AST 51 H (14-36) U/L Alkaline Phosphatase 155 H (38-126) U/L Total Protein 5.8 L (6.3-8.2) g/dL Albumin 3.2 L (3.5-5.0) g/dL 05/13/19 Range/Units 06:47 Hct (34.0-46.0) % MCHC (31.0-37.0) g/dL PT (9.0-12.0) sec INR (<1.2) Sodium 133 L (137-145) mmol/L Chloride (98-107) mmol/L BUN 39 H (7-17) mg/dL Creatinine 1.59 H (0.52-1.04) mg/dL Glucose 51 L (74-99) mg/dL POC Glucose (mg/dL) (75-99) mg/dL Calcium 8.2 L (8.4-10.2) mg/dL AST (14-36) U/L Alkaline Phosphatase (38-126) U/L Total Protein (6.3-8.2) g/dL Albumin (3.5-5.0) g/dL Microbiology - Last 24 Hours (Table) 05/12/19 18:15 Stool Culture - Preliminary Stool 05/12/19 04:30 Urine Culture - Preliminary Urine,Voided Assessment and Plan Plan: 1. Acute kidney injury secondary to diarrhea and diuresing. Lisinopril placed on hold. Patient is status post 1 L of IV fluid. Continue normal saline at 50 mL per hour. Avoid nephrotoxic agents. 2. Acute on chronic diastolic heart failure. Continue Lopressor 25 mg 3 times daily, hold lisinopril. Cardiology is started patient on Lasix 40 mg IV every 12 hours will be decreased to daily today and start oral in the morning. 3. Paroxysmal atrial fibrillation with sick sinus syndrome and underlying permanent pacemaker. Continue Lopressor 25 mg twice daily. Coumadin on hold due to coagulopathy. 4. Coagulopathy secondary to Coumadin use and diarrhea. Coumadin is on hold, pharmacy to dose. 5. Acute urinary tract infection. Patient started on Rocephin. Await urine culture. 6. Acute diarrhea. Stool specimen to be sent for C. difficile colitis. Patient recently completed 2 courses of antibiotics for dental procedures. Pat ient started on lactobacillus. 7. Hypertension and hypertensive perivascular disease. Continue patient on Lopressor 25 mg orally twice every day. Hold lisinopril. 8. Hyperlipidemia. Continue Zocor. 9. Generalized anxiety disorder. Continue Paxil 20 mg orally once every day. 10. Chronic kidney disease stage II. 11. DVT prophylaxis. Already on Coumadin. 12. GI prophylaxis. Continue PPI. Admitted to inpatient. Estimated length of stay 2 midnights. Medical debility. Physical therapy evaluation . CODE STATUS: No code per patient wishes. Discharge plan: Home in the next 24-48 hours. Impression and plan of care have been directed as dictated by the signing physician. Raven Shaw nurse practitioner acting as scribe for signing physician.
[2019-05-13 16:01] VITALS: BMI 19.4
[2019-05-13] MEDS: VERAPAMIL 40 MG TAB PO SCH (17:14)
[2019-05-13] MEDS ORDERED: WARFARIN 0.5 MG TAB PO ONE (18:00)
[2019-05-13] MEDS ORDERED: FUROSEMIDE 20 MG TAB PO SCH (21:00)
[2019-05-13] MEDS: ATORVASTATIN 10 MG TAB PO SCH (22:43)
[2019-05-13 22:50] LABS: Glucose,Whole Blood 69 mg/dL (75-99)
[2019-05-13 23:10] LABS: Glucose,Whole Blood 76 mg/dL (75-99)
[2019-05-14 02:23] LABS: Glucose,Whole Blood 83 mg/dL (75-99)
[2019-05-14] MEDS ORDERED: DEXTROSE 5% IN WATER 100 ML with AMIODARONE 150 MG IV ONE (02:38)
[2019-05-14] MEDS: VERAPAMIL 40 MG TAB PO SCH ×2 (02:41→08:54)
[2019-05-14] MEDS ORDERED: AMIODARONE 360 MG in DEXTROSE 5% IN WATER 200 ML IV ONE ×2 (02:42)
[2019-05-14 03:13] VITALS: TEMP 97.8
[2019-05-14] MEDS: SODIUM CHLORIDE 0.9% 1,000 ML IV SCH (03:22)
[2019-05-14 05:53] LABS: Basophils % (A) 0 %; Eosinophils % (A) 0 %; HCT 51.6 % (34.0-46.0); HGB 15.4 gm/dL (11.4-16.0); Hypochromasia Marked; Lymphocytes % (A) 22 %; MCH 29.1 pg (25.0-35.0); MCHC 29.8 g/dL (31.0-37.0); MCV 97.6 fL (80.0-100.0); Macrocytosis Slight; Mean Platelet Volume 9.5; Monocytes # (A) 0.4 k/uL (0-1.0); Monocytes % (A) 5 %; Neutrophils # (A) 6.4 k/uL (1.3-7.7); Neutrophils % (A) 71 %; Platelet Count 227 k/uL (150-450); RBC 5.29 m/uL (3.80-5.40); RDW 15.7 % (11.5-15.5); WBC 9.1 k/uL (3.8-10.6)
[2019-05-14 06:01] LABS: Prothrombin Time 61.9 sec (9.0-12.0)
[2019-05-14 06:02] LABS: Albumin 3.1 g/dL (3.5-5.0); Calcium 8.6 mg/dL (8.4-10.2); Magnesium 2.3 mg/dL (1.6-2.3); Potassium 4.8 mmol/L (3.5-5.1); Total Bilirubin 1.5 mg/dL (0.2-1.3); Total Protein 5.8 g/dL (6.3-8.2)
[2019-05-14 06:14] LABS: INR 6.4 (<1.2)
[2019-05-14] MEDS ORDERED: WARFARIN 0.5 MG TAB PO ONE ×2 (06:30→18:00)
[2019-05-14] MEDS ORDERED: NOREPINEPHRINE 4 MG in SODIUM CHLORIDE 0.9% 250 ML IV SCH (07:30)
[2019-05-14 07:33] LABS: Glucose,Whole Blood 82 mg/dL (75-99)
--- NOTE | 2019-05-14 07:34 | XR ---
EXAMINATION TYPE: XR chest 1V DATE OF EXAM: 05/14/2019 HISTORY: SOB. REFERENCE: Previous study dated 05/11/2019. FINDINGS: A bipolar pacemaker projects over the chest. Study is quite rotated. The lungs are overinflated. The heart is enlarged. There are bilateral effusi ons. There is bibasilar airspace disease. IMPRESSION: 1. COPD. 2. BIBASILAR AIRSPACE DISEASE. 3. CARDIOMEGALY. 4. BILATERAL EFFUSIONS.
[2019-05-14] MEDS ORDERED: AMIODARONE 300 MG in DEXTROSE 5% IN WATER 250 ML IV SCH ×2 (08:50)
[2019-05-14] MEDS: METOPROLOL TARTRATE 50 MG TAB PO SCH (08:57)
[2019-05-14] MEDS: LACTOBACILLUS ACIDOPH & BULGAR 1 EACH PACKET PO SCH (09:00)
[2019-05-14] MEDS ORDERED: FUROSEMIDE 10 MG/ML 4 ML VIAL IV SCH (09:00)
[2019-05-14] MEDS: FAMOTIDINE 20 MG TAB PO SCH (09:00)
[2019-05-14] MEDS ORDERED: FUROSEMIDE 40 MG TAB PO SCH (09:00)
[2019-05-14] MEDS: FERROUS SULFATE 325 MG TAB PO SCH (09:00)
[2019-05-14 10:17] VITALS: BP 78/58; PULSE 90; RESP 23
[2019-05-14] MEDS ORDERED: MORPHINE SULFATE 2 MG/ML SYRINGE IV PRN (10:36)
[2019-05-14] MEDS ORDERED: ATROPINE OPHTH SOLN 1% 5ML BTL SUBLINGUAL PRN (10:36)
[2019-05-14] MEDS ORDERED: LORazepam 2 MG/ML INJ IV PRN (10:36)
--- NOTE | 2019-05-14 11:22 | P.CNPUL ---
History of Present Illness Consult date: 05/14/19 Requesting physician: Kate Aparicio Reason for consult: other (Atrial fibrillation with RVR and hypotension.) Chief complaint: Nausea vomiting and diarrhea. History of present illness: This is an 88-year-old female with history of multiple cardiac problems including paroxysmal atrial fibrillation, systolic congestive heart failure, valvular heart disease, admitted on 05/11/2019 mostly because she was evaluated by her primary care physician in the office at that time and she was noted to be dehydrated there was also evidence of increased bilateral leg edema, and she was felt to have possibly a urinary tract infection. Patient was admitted, and has been seen by many consultants since admission. Cardiac-jason the patient has ejection fraction of 35%, moderate aortic regurgitation severe mitral regurgitation severe tricuspid regurgitation and while inpatient, patient developed worsening cardiac status, developed atrial fibrillation with RVR, hypotension, and she was transferred last night to the intensive care unit. I was asked to see the patient on consultation. Shortly after she arrived to the ICU, I recommended that she goes on amiodarone for her atrial fibrillation and RVR, and she was placed on levo fed for low blood pressure. Cardiology staff who saw the patient already on admission, were notified about the transfer, and about the A. fib RVR, and hypotension. Her chest x-ray upon transfer to the ICU showed evidence of worsening pulmonary edema. When I saw the patient this morning, she was noted to be on norepinephrine at 0.23 mcg/kg/m, she was on amiodarone at 0.5 mg/m, and her blood pressure was noted to be reasonable, and her atrial fibrillation rate is better controlled. Family was noted to be at bedside, discussed her condition with her daughter, and also discussed the CODE STATUS with the patient and the daughter, clearly the patient is DO NOT RESUSCI PARRA CODE STATUS as per her own wishes. I also discussed her condition with the [facility] on the case. Dr. Armstrong. Review of Systems Constitutional: Patient complains of weakness fatigue and some weight loss. No fever no chills. Ears, nose, mouth and throat: Denies earache, denies sore throat, denies nasal discharge. Cardiovascular: Denies chest pain or palpitation, she does have increased swelling in lower extremities. Respiratory: Minimal shortness of breath, no cough no wheezing, no fever no chills no hemoptysis. Gastrointestinal: Denies nausea vomiting abdominal pain melena or hematemesis. Genitourinary: Denies dysuria frequency urgency or hematuria. Musculoskeletal: Reports vague aches and pains. Integumentary: Denies rashes, denies pruritus. Neurological: Denies headache blurred vision dizziness. Psychiatric: Denies any symptoms of depression. Endocrine: Denies heat or cold intolerance Past Medical History Past Medical History: Atrial Fibrillation, Heart Failure, CVA/TIA, Hyperlipidemia Additional Past Medical History / Comment(s): Cardiac murmur, bronchitis, iron deficiency anemia, TIA, L breast cancer with surgery/chemo/radiation, bilateral raynauld's disease, bronchitis. History of Any Multi-Drug Resistant Organisms: None Reported Past Surgical History: Pacemaker Additional Past Surgical History / Comment(s): L mastectomy with lymph nodes removed, ectopic with 1 fallopian tube removed, bilateral cataract removals/lens implants. right hip replacement Past Anesthesia/Blood Transfusion Reactions: No Reported Reaction Additional Past Anesthesia/Blood Transfusion Reaction / Comment(s): Pt states she received blood with her ectopic without reaction. Type of Cardiac Device: Permanent Pacemaker Device Placement Date:: 2015 in [place] Past Psychological History: No Psychological Hx Reported Additional Psychological History / Comment(s): Pt resides with her daughter. They moved here from [place] 1 year ago. Pt uses a cane or wheeled walker to ambulate. Smoking Status: Former smoker Past Alcohol Use History: None Reported Additional Past Alcohol Use History / Comment(s): Pt states she smoked during the 1960s socially. Past Drug Use History: None Reported - Past Family History Father Family Medical History: Coronary Artery Disease (CAD), Hypertension Additional Family Medical History / Comment(s): Father at age 86 from coronary artery disease. Mother Family Medical History: Dementia Additional Family Medical History / Comment(s): Mother had gallstones.noly child, 2 daughter an d son with no medical problems Medications and Allergies Home Medications Medication Instructions Recorded Confirmed Type PARoxetine [Paxil] 10 mg PO DAILY 08/28/17 05/11/19 History Furosemide [Lasix] 40 mg PO DAILY #60 tab 09/22/18 05/11/19 Rx Metoprolol Tartrate [Lopressor] 25 mg PO TID #90 tab 09/22/18 05/11/19 Rx Ferrous Sulfate [Feosol] 325 mg PO DAILY 05/11/19 05/11/19 History Lisinopril [Zestril] 5 mg PO DAILY 05/11/19 05/11/19 History Simvastatin [Zocor] 20 mg PO HS 05/11/19 05/11/19 History Warfarin [Coumadin] 0.5 mg PO TUTHSA 05/11/19 05/11/19 History Warfarin [Coumadin] 1 mg PO SUMOWEFR 05/11/19 05/11/19 History Allergies Allergy/AdvReac Type Severity Reaction Status Date / Time No Known Allergies Allergy Verified 05/11/19 15:27 Physical Exam Vitals: Vital Signs Temp Pulse Pulse Resp BP BP BP 05/14/19 10:10 90 23 78/58 05/14/19 10:00 103 H 22 05/14/19 09:50 131 H 19 05/14/19 09:40 105 H 20 102/72 05/14/19 09:30 93 24 107/71 05/14/19 09:20 99 29 H 97/74 05/14/19 09:10 101 H 27 H 107/81 05/14/19 09:00 92 23 110/91 05/14/19 08:50 100 24 118/87 05/14/19 08:40 102 H 24 95/68 05/14/19 08:30 85 25 H 97/70 05/14/19 08:20 93 24 97/51 05/14/19 08:10 86 21 84/60 05/14/19 08:05 21 05/14/19 08:00 84 21 85/62 05/14/19 07:50 80 19 84/54 05/14/19 07:40 83 21 66/49 05/14/19 07:30 93 20 63/40 05/14/19 07:20 72 22 60/25 05/14/19 06:00 89 44 H 86/44 05/14/19 05:30 80 17 82/58 05/14/19 05:00 81 18 82/58 05/14/19 04:30 89 20 84/57 05/14/19 04:00 74 19 80/55 05/14/19 03:30 88 23 70/50 05/14/19 03:00 101 H 13 78/60 08/03/19 02:30 110 H 15 73/57 05/14/19 01:30 97.8 F 60 16 74/50 05/14/19 00:56 78/56 05/13/19 23:53 96/52 05/13/19 23:22 85 80/53 05/13/19 22:40 107 H 102/72 05/13/19 21:48 96 105/77 05/13/19 20:30 89/59 05/13/19 19:30 98.8 F 108 H 18 80/62 05/13/19 16:00 16 05/13/19 15:00 97.6 F 116 H 16 113/71 Pulse Ox 05/14/19 10:10 89 L 05/14/19 10:00 90 L 05/14/19 09:50 91 L 05/14/19 09:40 89 L 05/14/19 09:30 90 L 05/14/19 09:20 05/14/19 09:10 05/14/19 09:00 90 L 05/14/19 08:50 89 L 05/14/19 08:40 90 L 05/14/19 08:30 96 05/14/19 08:20 92 L 05/14/19 08:10 90 L 05/14/19 08:05 05/14/19 08:00 90 L 05/14/19 07:50 05/14/19 07:40 05/14/19 07:30 05/14/19 07:20 87 L 05/14/19 06:00 96 05/14/19 05:30 95 05/14/19 05:00 96 05/14/19 04:30 96 05/14/19 04:00 97 05/14/19 03:30 96 05/14/19 03:00 95 05/14/19 02:30 96 05/14/19 01:30 05/14/19 00:56 05/13/19 23:53 05/13/19 23:22 05/13/19 22:40 05/13/19 21:48 95 05/13/19 20:30 05/13/19 19:30 96 05/13/19 16:00 05/13/19 15:00 95 Intake and Output 05/13/19 05/14/19 05/14/19 22:59 06:59 14:59 Intake Total 249 333.563 Output Total 35 Balance 249 298.563 Intake: IV 249 150 Amiodarone 300 mg In 99 Dextrose 5% in Water 250 ml @ 0.5 MG/MIN 25 mls/hr IV .Q10H KILEY Rx#: [id number] Sodium Chloride 0.9% 1, 150 150 000 ml @ 50 mls/hr IV . Q20H KILEY Rx#:[id number] Intake, IV Titration 183.563 Amount Norepinephrine 4 mg In 183.563 Sodium Chloride 0.9% 250 ml @ 0.05 MCG/KG/MIN 9. 582 mls/hr IV .Q24H KILEY Rx#:[id number] Output: Urine 35 Other: Voiding Method Toilet Bedpan Bedpan Incontinent Incontinent # Voids 1 0 Weight 48.137 kg 50.3 kg Physical Exam: Revealed a 88-year-old female extremely pleasant, in no distress, on nasal cannula. Head: Atraumatic normocephalic. HEENT:[Neck is supple.] [No neck masses.] [No thyromegaly.] Positive JVD. Moist mucous membranes. Chest: [Symmetrical chest expansion, crackles at the bases, no rhonchi and no wheezes. Cardiac Exam: [Irregular irregular rhythm, 2/6 systolic murmur thought the precordium. Abdomen: [Soft, nontender, no megaly, no rebound, no guarding, normal bowel sounds.] Extremities: [2+ bipedal edema, however left lower extremity seems to be a bit more swollen than the right lower extremity. Good pulses bilaterally. Neurological Exam: Alert oriented 3, no gross focal neurologic deficits. Psychiatric: Normal mood, affect and normal mental status examination. Skin: No rashes. Lymphatics: No lymphadenopathy. Results - Laboratory Findings CBC and BMP: 05/14/19 05:36 05/14/19 05:36 PT/INR, D-dimer PT 61.9 sec (9.0-12.0) H 05/14/19 05:36 INR 6.4 (<1.2) H* 05/14/19 05:36 Abnormal lab findings: Abnormal Labs 05/11/19 05/11/19 05/11/19 15:45 15:45 15:45 Hct 46.2 H MCHC 30.3 L RDW PT 34.2 H INR 3.6 H APTT 31.1 H Sodium 132 L Chloride 93 L Carbon Dioxide BUN 37 H Creatinine 1.45 H Glucose 109 H POC Glucose (mg/dL) Calcium Total Bilirubin AST 66 H Alkaline Phosphatase 139 H Total Protein 5.8 L Albumin 3.2 L Urine Appearance Urine Protein Urine Blood Ur Leukocyte Esterase Urine RBC Urine WBC Urine WBC Clumps Hyaline Casts Urine Mucus 05/12/19 05/12/19 05/12/19 04:30 07:43 07:43 Hct 47.2 H MCHC 29.8 L RDW PT INR APTT Sodium 133 L Chloride Carbon Dioxide BUN 36 H Creatinine 1.45 H Glucose POC Glucose (mg/dL) Calcium Total Bilirubin AST Alkaline Phosphatase Total Protein Albumin Urine Appearance Cloudy H Urine Protein Trace H Urine Blood Moderate H Ur Leukocyte Esterase Large H Urine RBC 26 H Urine WBC >182 H Urine WBC Clumps Few H Hyaline Casts 264 H Urine Mucus Rare H 05/12/19 05/12/19 05/13/19 07:43 21:38 00:10 Hct MCHC RDW PT 31.8 H INR 3.3 H APTT Sodium 133 L Chloride 96 L Carbon Dioxide BUN 38 H Creatinine 1.56 H Glucose 67 L POC Glucose (mg/dL) 73 L Calcium Total Bilirubin AST 51 H Alkaline Phosphatase 155 H Total Protein 5.8 L Albumin 3.2 L Urine Appearance Urine Protein Urine Blood Ur Leukocyte Esterase Urine RBC Urine WBC Urine WBC Clumps Hyaline Casts Urine Mucus 05/13/19 05/13/19 05/13/19 06:47 06:47 22:42 Hct MCHC RDW PT 38.5 H INR 4.0 H APTT Sodium 133 L Chloride Carbon Dioxide BUN 39 H Creatinine 1.59 H Glucose 51 L POC Glucose (mg/dL) 69 L Calcium 8.2 L Total Bilirubin AST Alkaline Phosphatase Total Protein Albumin Urine Appearance Urine Protein Urine Blood Ur Leukocyte Esterase Urine RBC Urine WBC Urine WBC Clumps Hyaline Casts Urine Mucus 05/14/19 05/14/19 05/14/19 05:36 05:36 05:36 Hct 51.6 H MCHC 29.8 L RDW 15.7 H PT 61.9 H INR 6.4 H* APTT Sodium 133 L Chloride 97 L Carbon Dioxide 19 L BUN 44 H Creatinine 2.13 H Glucose POC Glucose (mg/dL) Calcium Total Bilirubin 1.5 H AST 66 H Alkaline Phosphatase 142 H Total Protein 5.8 L Albumin 3.1 L Urine Appearance Urine Protein Urine Blood Ur Leukocyte Esterase Urine RBC Urine WBC Urine WBC Clumps Hyaline Casts Urine Mucus - Diagnostic Findings Chest x-ray: image reviewed (Consistent with congestive heart failure.) Assessment and Plan Assessment: Impression: 1 acute hypoxic respiratory failure secondary to acute systolic congestive heart failure. 2 atrial fibrillation with RVR. 3 hypotension secondary to atrial fibrillation with RVR, strongly doubt septic shock. 4 acute kidney injury, multifactorial, related to hypotension, diuretics, and dehydration on presentation. 5 Coumadin induced coagulopathy with elevated INR, presently Coumadin is on hold. 6 acute urinary tract infection, remains on Rocephin. 7 acute gastroenteritis, being addressed by the admitting physician. 8 multiple comorbidities including hypertension, valvular heart disease, systolic dysfunction, chronic kidney disease stage II, hypercholesterolemia. Recommendation: Continue to monitor the patient in the ICU, continue norepinephrine, continue amiodarone, restart diuretics once the patient's blood pressure is stable, continue antibiotics/Rocephin, continue GI and DVT prophylaxis, hold Coumadin because of elevated INR, continue to monitor electrolytes and renal profile on a daily basis, overall prognosis is extremely poor and guarded, discussed CODE STATUS with family at bedside, and clearly the patient is DO NOT RESUSCITATE CODE STATUS. We'll continue to follow. Time with Patient: Greater than 30
[2019-05-14] MEDS: PARoxetine 10 MG TAB PO SCH (12:16)
--- NOTE | 2019-05-14 13:21 | P.DS ---
Providers Date of admission: 05/12/19 15:43 Expected date of discharge: 05/14/19 Attending physician: Kate Aparicio Consults: 05/11/19 20:13 Consult Physician Routine Consulting Provider: Hugo Gautam Consult Reason/Comments: NEW CONSULT. PERSISTANT TACHYCARDIA Do you want consulting provider notified?: Yes, Notify in am 05/14/19 02:43 Consult Physician Stat Consulting Provider: Luz Tabor Consult Reason/Comments: ICU stay Do you want consulting provider notified?: Already Contacted 05/14/19 08:44 Consult Physician Routine Consulting Provider: [facility] Consult Reason/Comments: Chest pain, pulmonary edema Do you want consulting provider notified?: Yes Primary care physician: [facility] Course: This is an 88-year-old female patient of Dr. Morgan and with Dr. Schofield with past medical history of paroxysmal atrial fibrillation, and is on Coumadin for anticoagulation. History also of hyperlipidemia, hypertension hypertensive cardiovascular disease, chronic diastolic heart failure, history of mitral and tricuspid regurgitation, pulmonary hypertension, prior nicotine dependence, sick sinus syndrome with prior pacemaker implantation, generalized anxiety disorder. Patient last saw Dr. Schofield 2 months ago and was taken off amiodarone and started on lisinopril. The patient states that she has been lethargic with lower extremity edema, not eating and drinking for the past 3-4 days. Daughter states that she had diarrhea the gradually started 1 week ago and continued to worsen. She has started to be incontinent of stool. No abdominal pain, no nausea or vomiting, no dysuria or increased frequency. She has not noted any blood in her urine or stool. She does have occasional cough. Patient did have a fall recently but she may have tripped on a chair or on the dogs. She denies any lightheadedness. She has been using a walker to ambulate. Most days, patient spends in the recliner and sleeps in a bed at nighttime. Patient has completed 2 courses of antibiotics for recent dental procedures. Patient presented to [facility] emergency center for evaluation. Patient was afebrile, heart rate 111, blood pressure 116/59. White count was 8, hemoglobin 14. BUN 37 creatinine 1.45, blood sugar 109, sodium 132, potassium 5.0, chloride 93, CO2 28. Lactic acid 1.9, AST 66, ALT 32, alkaline phosphatase 139. INR is 3.6, proBNP 21,800. Chest x-ray reveals COPD. Cardiomegaly with small effusions and adjacent atelectasis and/or consolidation. Correlate for heart failure as etiology. Patient was given 1 L of IV fluids. Patient placed on the [facility] floor and cardiology consult requested for tachycardia. Echocardiogram has been ordered. Stool for C. diff toxin and stool culture are uncollected. patient daughter states that she has not had any stools since admission. Echocardiogram reveals EF of 35-40%, borderline concentric left ventricular hypertrophy, moderate aortic regurgitation, severe mitral regurgitation, severe tricuspid regurgitation. Abdominal x-ray shows nonobstructive bowel gas pattern. Trace pleural effusions. Venous Doppler of the left lower extremity reveals no evidence of DVT in the left lower extremity. 05/13: Patient has been afebrile, heart rate 63, blood pressure 116/67, pulse ox 92% on room air. INR today is at 4.0. BUN 39 creatinine 1.59, sodium 133, calc ium 8.2. C. difficile toxin negative. Stool culture and urine culture in progress. Patient denies having any diarrhea today. We will plan to decrease IV Lasix to daily and plan for oral in the morning. IV fluids will be discontinued in the morning. Physical therapy is recommended home. Plan to monitor overnight and possible discharge the next 24-48 hours. 05/14: Patient was transferred into the intensive care unit this morning approximate 4 AM after she went into A. fib with RVR and blood pressure dropped. Her heart rate was in the 140s to 150s. At the time of a failed, patient was complaining of nausea and was noted to be confused with significant mental status changes from yesterday. Her liver enzymes were elevated this morning and INR jumped to 6. Initially ultrasound of the abdomen was ordered. Patient was started on amiodarone drip and norepinephrine in was maintaining a blood pressure in the 80s systolic. Dr. Tabor had discussed CODE STATUS with the family and patient was made no code. Patient subsequently had a significant drop in her blood pressure despite norepinephrine and developed agonal respirations. Had discussed with the family that comfort care option and patient was made comfortable and passed on May 14. Discharge diagnoses: 1. Acute kidney injury secondary to diarrhea and diuresing. 2. Acute on chronic diastolic heart failure--preliminary cause of 3. Paroxysmal atrial fibrillation with sick sinus syndrome and underlying permanent pacemaker. 4. Coagulopathy secondary to Coumadin use and diarrhea. 5. Acute urinary tract infection. 6. Acute diarrhea. C. difficile colitis ruled out 7. Hypertension and hypertensive perivascular disease. 8. Hyperlipidemia. 9. Generalized anxiety disorder. 10. Chronic kidney disease stage II. Impression and plan of care have been directed as dictated by the signing physician. Raven Shaw nurse practitioner acting as scribe for signing physician. Patient Condition at Discharge: Undetermined Plan - Discharge Summary Discharge Rx Participant: No New Discharge Prescriptions: No Action PARoxetine [Paxil] 10 mg PO DAILY Furosemide [Lasix] 40 mg PO DAILY #60 tab Metoprolol Tartrate [Lopressor] 25 mg PO TID #90 tab Warfarin [Coumadin] 0.5 mg PO TUTHSA Lisinopril [Zestril] 5 mg PO DAILY Ferrous Sulfate [Feosol] 325 mg PO DAILY Simvastatin [Zocor] 20 mg PO HS Warfarin [Coumadin] 1 mg PO SUMOWEFR Discharge Medication List PARoxetine [Paxil] 10 mg PO DAILY 08/28/17 [History] Furosemide [Lasix] 40 mg PO DAILY #60 tab 09/22/18 [Rx] Metoprolol Tartrate [Lopressor] 25 mg PO TID #90 tab 09/22/18 [Rx] Ferrous Sulfate [Feosol] 325 mg PO DAILY 05/11/19 [History] Lisinopril [Zestril] 5 mg PO DAILY 05/11/19 [History] Simvastatin [Zocor] 20 mg PO HS 05/11/19 [History] Warfarin [Coumadin] 0.5 mg PO TUTHSA 05/11/19 [History] Warfarin [Coumadin] 1 mg PO SUMOWEFR 05/11/19 [History] Follow up Appointment(s)/Referral(s): Haroon Morgan MD [Primary Care Provider] - 1-2 days Kareem Schofield MD [STAFF PHYSICIAN] - 2 Weeks Patient Instructions/Handouts: Acute Diarrhea (ED) - Preliminary Cause of Preliminary Cause of : Acute on chronic diastolic heart failure
== END 2019-05-14 12:50 | disposition expired | DRG 682 ==
LOC: EC 14:39 → 4SSUR 18:13 → OBSVTOIN 05-12 15:43 → 2SICU 05-14 03:57
PROVIDERS: ADMIT Family Medicine; ATTEND Family Medicine
DX: N17.9 Acute kidney failure, unspecified (principal); I50.43 Acute on chronic combined systolic (congestive) and diastolic (congestive) heart failure; J96.01 Acute respiratory failure with hypoxia; N39.0 Urinary tract infection, site not specified; D68.9 Coagulation defect, unspecified; I13.0 Hypertensive heart and chronic kidney disease with heart failure and stage 1 through stage 4 chronic kidney disease, or unspecified chronic kidney disease; E86.0 Dehydration; E78.5 Hyperlipidemia, unspecified; Z66 Do not resuscitate; Z51.5 Encounter for palliative care; T45.515A Adverse effect of anticoagulants, initial encounter; N18.2 Chronic kidney disease, stage 2 (mild); R15.9 Full incontinence of feces; I27.29 Other secondary pulmonary hypertension; I48.0 Paroxysmal atrial fibrillation; I08.3 Combined rheumatic disorders of mitral, aortic and tricuspid valves; R41.82 Altered mental status, unspecified; R11.0 Nausea; R19.7 Diarrhea, unspecified; T50.2X5A Adverse effect of carbonic-anhydrase inhibitors, benzothiadiazides and other diuretics, initial encounter; I49.5 Sick sinus syndrome; J44.9 Chronic obstructive pulmonary disease, unspecified; F41.1 Generalized anxiety disorder; E78.00 Pure hypercholesterolemia, unspecified; Z96.1 Presence of intraocular lens; Z96.641 Presence of right artificial hip joint; Z95.0 Presence of cardiac pacemaker; Z90.12 Acquired absence of left breast and nipple; Z79.01 Long term (current) use of anticoagulants; Z79.899 Other long term (current) drug therapy; Z86.73 Personal history of transient ischemic attack (TIA), and cerebral infarction without residual deficits; Z87.891 Personal history of nicotine dependence; Z85.3 Personal history of malignant neoplasm of breast; Z82.0 Family history of epilepsy and other diseases of the nervous system; Z82.49 Family history of ischemic heart disease and other diseases of the circulatory system; Z92.21 Personal history of antineoplastic chemotherapy; Z92.3 Personal history of irradiation; Z90.79 Acquired absence of other genital organ(s); Z98.42 Cataract extraction status, left eye; Z98.41 Cataract extraction status, right eye; Z83.79 Family history of other diseases of the digestive system
CPT/HCPCS: 36415; 71045; 71046; 74019; 80048; 80053; 81001; 83605; 83735; 83880; 85025; 85610; 85730; 87045; 87046; 87077; 87086; 87186; 87324; 93005; 93306; 96360; 99285